=== PATIENT | female | born 1955 | race Caucasian/White ===

== ENCOUNTER → 2016-09-07 | Outpatient (CLI) | payer BC, OTHER ==
[~2016-09-07] MED LIST: CLEM2.68 PO; CTP/1 PO; FURO-85 PO; IMDSR/30 PO; LEVO5TAB2 PO; LPT40 PO; LSN5 PO; NTRGSL/4 UT; OMEP40CA41 PO; POTA-327 PO; SPR25 PO; TOLT4CAP PO
[2016-09-07 15:52] LABS: BLOOD UREA NITROGEN 16 mg/dl (7-18); BUN/CREATININE RATIO 21.6 (10-20); CALCIUM 9.2 mg/dl (8.5-10.1); CARBON DIOXIDE 24 mmol/L (21-32); CHLORIDE 108 mmol/L (98-107); CREATININE 0.73 mg/dl (0.60-1.20); GLUCOSE 112 mg/dl (70-99); SODIUM 141 mmol/L (136-145)
[2016-09-07 16:02] LABS: ALT/SGPT 28 U/L (12-78); CHOLESTEROL 212 mg/dl (0-200); CHOLESTEROL/HDL RATIO 6.4; HDL CHOLESTEROL 33 mg/dl; TRIGLYCERIDES 302 mg/dl (0-150); VERY LOW DENSITY LIPOPROT CALC 60 mg/dl
== END | disposition home or self-care (01) ==
LOC: C.LABMFLN 11:52
PROVIDERS: ATTEND Family Medicine
DX: I10 Essential (primary) hypertension (principal); E78.00 Pure hypercholesterolemia, unspecified

== ENCOUNTER → 2017-02-14 | Outpatient (CLI) | payer OTHER ==
[~2017-02-14] MED LIST changes: +LEVO-371 PO; -LEVO5TAB2 PO
[2017-02-14 13:13] LABS: ALB/GLOB RATIO 0.8 (0.9-2); ALT/SGPT 29 U/L (12-78); AST/SGOT 15 U/L (15-37); BLOOD UREA NITROGEN 15 mg/dl (7-18); BUN/CREATININE RATIO 17.5 (10-20); CALCIUM 9.1 mg/dl (8.5-10.1); CARBON DIOXIDE 24 mmol/L (21-32); CHLORIDE 108 mmol/L (98-107); CREATININE 0.87 mg/dl (0.60-1.20); GLUCOSE 104 mg/dl (70-99); POTASSIUM 4.1 mmol/L (3.5-5.1); SODIUM 140 mmol/L (136-145)
[2017-02-14 13:31] LABS: ALKALINE PHOSPHATASE 76 U/L (45-117); CHOLESTEROL 208 mg/dl (0-200); CHOLESTEROL/HDL RATIO 6.3; HDL CHOLESTEROL 33 mg/dl; LDL CHOLESTEROL CALCULATED 131 mg/dl; TRIGLYCERIDES 221 mg/dl (0-150); VERY LOW DENSITY LIPOPROT CALC 44 mg/dl
== END | disposition home or self-care (01) ==
LOC: C.LABPVFM 10:50
PROVIDERS: ATTEND Neuromusculoskeletal Medicine & OMM
DX: Z00.00 Encounter for general adult medical examination without abnormal findings (principal)

== ENCOUNTER → 2017-03-10 | Outpatient (CLI) | payer OTHER ==
--- NOTE | 2017-03-10 12:23 | DIAGNOSTIC IMAGING REPORT ---
LEFT KNEE 2 VIEWS HISTORY: M25.562 Pain of left knee after injury [id number] COMPARISON: None. FINDINGS: There is no fracture or dislocation. Anterior subcutaneous edema. No significant knee effusion. No radiopaque foreign bodies. Mild cartilage space narrowing within the medial compartment of the knee consistent with degenerative change. IMPRESSION: 1. No fracture or dislocation within the left knee. 2. Mild osteoarthritis at the medial compartment. 3. Mild subcutaneous edema. Electronically signed by: Cesar Acevedo M.D. 03/10/2017 12:22 PM Dictated Date/Time: 03/10/2017 12:21 PM
== END | disposition home or self-care (01) ==
LOC: C.RAD 11:31
PROVIDERS: ATTEND Neuromusculoskeletal Medicine & OMM
DX: M25.562 Pain in left knee (principal)

== ENCOUNTER 2020-01-10 05:03 | Observation (INO) ==
--- NOTE | 2020-01-01 10:43 | PAT Medication Instructions ---
Medication Instructions Date of Service January 01, 2020 Home Medications Medication Instructions Recorded clemastine 2.68 mg tablet 2.68 mg PO BID PRN #180 tab 10/24/19 clonidine HCl 0.1 mg tablet 0.1 mg PO BID #180 tab 10/24/19 fluticasone propionate 50 2 sprays INTNAS DAILY PRN #54.6 ml 10/24/19 mcg/actuation nasal spray,suspension valsartan 40 mg tablet 40 mg PO BID #60 tab 11/26/19 varicella-zoster [id number] (PF) 50 0.5 ml IM .COMPLEX #1 ea 11/26/19 mcg/0.5 mL IM susp, kit aspirin 81 mg tablet,delayed release 81 mg PO QAM clemastine 2.68 mg tablet 2.68 mg PO BID PRN clonidine HCl 0.1 mg tablet 0.1 mg PO BID fluticasone propionate 50 mcg/actuation nasal spray,suspension 2 sprays INTNAS DAILY PRN valsartan 40 mg tablet 40 mg PO BID acetaminophen [Tylenol] 325 mg PO Q4H PRN fenofibrate nanocrystallized 145 mg PO QAM furosemide 20 mg PO QAM ibuprofen [Advil] 400 mg PO Q4 PRN metformin 500 mg PO QAM omeprazole 40 mg PO QAM potassium chloride 10 meq PO QAM tolterodine 4 mg PO QAM ASK your surgeon for instructions ibuprofen [Advil] 400 mg PO Q4 PRN ASK your prescriber and surgeon aspirin 81 mg tablet,delayed release 81 mg PO QAM STOP taking 48 hours before surgery fenofibrate nanocrystallized 145 mg PO QAM DO NOT take the morning of surgery clemastine 2.68 mg tablet 2.68 mg PO BID PRN valsartan 40 mg tablet 40 mg PO BID furosemide 20 mg PO QAM metformin 500 mg PO QAM potassium chloride 10 meq PO QAM tolterodine 4 mg PO QAM Take morning of surgery With a small sip of water, OTHERWISE NOTHING TO EAT OR DRINK AFTER MIDNIGHT: clonidine HCl 0.1 mg tablet 0.1 mg PO BID fluticasone propionate 50 mcg/actuation nasal spray,suspension 2 sprays INTNAS DAILY PRN (if needed) acetaminophen [Tylenol] 325 mg PO Q4H PRN (okay to take up to 4 hours prior to surgery if needed) omeprazole 40 mg PO QAM Take evening before surgery clemastine 2.68 mg tablet 2.68 mg PO BID PRN (if needed) clonidine HCl 0.1 mg tablet 0.1 mg PO BID fluticasone propionate 50 mcg/actuation nasal spray,suspension 2 sprays INTNAS DAILY PRN (if needed) valsartan 40 mg tablet 40 mg PO BID acetaminophen [Tylenol] 325 mg PO Q4H PRN (if needed) Other Notes If you have any questions please call us at [phone] or [phone] or [phone] or [phone]
--- NOTE | 2020-01-02 14:27 | Anesthesiology Consultation ---
Date of Service January 02, 2020 Assessment & Plan (1) Encounter for pre-operative examination: - Cardiology preop evaluation: Hx moderate CAD per 2015 cardiac cath + morbid obesity, NIDDM, decreased functional status. Case reviewed with Dr. Mahmood- deneen commend cardiology preop evaluation- scheduled 01/08 at [facility] cardio. Awaiting note. - Per PAT assessment on 01/01: Travel screen negative. Uses PPE. No known COVID- 19 positive contacts. No current COVID-19 related symptoms. Surgeon arranging preop COVID testing (01/03; [facility]). Awaiting results. - PCP office visit: 11/26/19: Valsartan added for HTN management. "Type 2 diabete s: Adequately controlled this time.. GERD: Well controlled. " - Check [facility] AM DOS Chart Review Chart Review: Patient seen in Pre Admission Testing Teaching & Discussion Pre-Anesthesia Teaching/Discussion Notes: Instructed NPO after midnight before surgery,except medications with 15 cc of water. Medication instructions provided according to the PAT guidelines. History Surgery Operation Date: 01/10/20 07:30 Proposed Procedures p Right Shoulder Arthroscopy, Rotator Cuff Repair, Possible Superior Capsular Reconstruction, Subacromial Decompression, Biceps Tenodesis - Arnoldo Manuel Height/Weight Height: 5 ft 6 in Weight: 126.5 kg Allergies Allergy/AdvReac Type Severity Reaction Status Date / Time prednisone Allergy Unknown Elevated BP Unverified 01/01/20 10:40 Sulfa (Sulfonamide Allergy Unknown Hives Unverified 01/01/20 10:40 Antibiotics) cortisone Allergy Unverified 01/01/20 09:52 Medications Home Medications Medication Instructions Recorded Confirmed Last Taken aspirin 81 mg tablet,delayed 81 mg PO QAM 11/17/18 01/01/20 Unknown release clemastine 2.68 mg tablet 2.68 mg PO BID PRN #180 tab 10/24/19 01/01/20 Unknown clonidine HCl 0.1 mg tablet 0.1 mg PO BID #180 tab 10/24/19 01/01/20 Unknown fluticasone propionate 50 2 sprays INTNAS DAILY PRN #54.6 ml 10/24/19 01/01/20 Unknown mcg/actuation nasal spray,suspension valsartan 40 mg tablet 40 mg PO BID #60 tab 11/26/19 01/01/20 Unknown varicella-zoster glycoE [id number] 0.5 ml IM .COMPLEX #1 ea 11/26/19 12/31/19 Unknown adj(PF) 50 mcg/0.5 mL IM susp dary acetaminophen [Tylenol] 325 mg PO Q4H PRN 01/01/20 01/01/20 Unknown fenofibrate nanocrystallized 145 mg PO QAM 01/01/20 01/01/20 Unknown furosemide 20 mg PO QAM 01/01/20 01/01/20 Unknown ibuprofen [Advil] 400 mg PO Q4 PRN 01/01/20 01/01/20 Unknown metformin 500 mg PO QAM 01/01/20 01/01/20 Unknown omeprazole 40 mg PO QAM 01/01/20 01/01/20 Unknown potassium chloride 10 meq PO QAM 01/01/20 01/01/20 Unknown tolterodine 4 mg PO QAM 01/01/20 01/01/20 Unknown Past Medical History Medical History CAD (coronary artery disease) moderate CAD per 2015 cardiac cath Carpal tunnel syndrome Gastroesophageal reflux disease controlled History of Lyme disease 2014 Hypercholesterolemia Hypertension Hypertension 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" Morbid obesity Stroke "stress induced" at age 39 Type 2 diabetes mellitus NIDDM Exercise / Class Metabolic Activity III < 4 Walking/Shop/Light housework Past Family History Family History Father Hypertension Myocardial infarction Lung cancer Sister Multiple sclerosis Mother Ovarian cancer Denies family history of Prostate cancer Breast cancer Colorectal cancer Past Surgical History Surgical History History of cardiac cath 2014 ([facility])- no stents History of colonoscopy 2019 History of dental surgery tooth replacement but since rejected and removed History of tubal ligation Past Anesthesia History No Hx of Anesthesia Complications and No Family Hx of Anesthesia Complications History of PONV No Hx of PONV and Hx of Motion Sickness Social History Smoking Status: Never smoker Do You Dip or Chew Tobacco: No Hx Alcohol Use: No Hx Substance Use: No substance use type: does not use Review of Systems Reflux controlled. Patient denies chest pain, shortness of breath, fever, chills, reflux, cough, wheezing, palpitations. Physical Exam Vital Signs VITALS BP 145/77 P 50 TEMP 98.2 SP02 98%RA RESP 18 PHYSICAL Full neck and c-spine range of motion. Full TMJ range of motion. TMD 3 finger breaths (difficult to palpate) Mallampati Score 3 Dentition: upper partial Lungs: clear throughout to auscultation Cardiac: regular rate and rhythm, no murmurs noted Spine: normal Carotid arteries: negative bruit Extremities: non-pitting edema Short, thick neck Testing Laboratory Results 01/02/20 14:50 PT 10.5 Seconds (9.0-12.0) 01/02/20 14:50 INR 1.0 (0.9-1.1) 01/02/20 14:50 APTT 26.6 Seconds (21.0-31.0) 01/02/20 14:50 11/22/19 SODIUM 139 POTASSIUM 3.9 CHLORIDE 108 CO2 24 BUN 20 CREATININE 0.94 GLUCOSE 129 HGBA1C 6.5% Electrocardiogram Date: 01/02/20 SB with first degree AVB with PAC's. Rightward axis. ST/TWA consider lateral ischemia. unconfirmed report* Chest X-Ray Date: 01/02/20 Findings: + NAD Echocardiogram Date: 02/07/15 EF 65-70%. No RWMA. Mild cLVH. No significant valvular disease. Cardiac Catheterization Date: 02/07/15 Coronary Anatomy Dominant: Right Left Main (% Stenosis): Normal LAD (% Stenosis): Mid (30), Distal (10-20) D1 (% Stenosis): Normal (Very small caliber vessel) D2 (% Stenosis): Ostial (50-60) Circumflex (% Stenosis): Ostial (10-20), Mid (30) OM1 (% Stenosis): Ostial (30) RCA (% Stenosis): Ostial (20), Proximal (20), Mid (10-20), Distal (10-20) R PDA (% Stenosis): Proximal (0-10) R PL1 (% Stenosis): Normal R PL2 (% Stenosis): Normal Left Ventricular Angiography EF (%): 65 Wall Motion: Inferior (Normal), Apical (Normal), Anterior (Normal) Mitral Regurgitation: None Post-procedure diagnosis: Moderate CAD-- medical therapy rec'd.
[2020-01-02 15:27] LABS: Basophils # (auto) 0.02 K/uL (0-0.2); Basophils % (auto) 0.3 %; Eosinophils # (auto) 0.17 K/uL (0-0.5); Eosinophils % (auto) 2.6 %; Hematocrit (blood only) 41.8 % (37-47); Hemoglobin 13.7 g/dL (12.0-16.0); Immature Granulocytes # (auto) 0.02 K/uL (0.00-0.02); Immature Granulocytes % (auto) 0.3 %; Lymphocytes # (auto) 2.16 K/uL (1.2-3.4); Lymphocytes % (auto) 33.3 %; Mean Corpuscular Hemoglobin 29.1 pg (25-34); Mean Corpuscular Hgb Conc 32.8 g/dL (32-36); Mean Corpuscular Volume 88.7 fL (80-100); Mean Platelet Volume 10.2 fL (7.4-10.4); Monocytes % (auto) 4.6 %; Neutrophils # (auto) 3.81 K/uL (1.4-6.5); Neutrophils % (auto) 58.9 %; Platelet Count 235 K/uL (130-400); RDW Coefficient of Variation 13.3 % (11.5-14.5); RDW Standard Deviation 43.7 fL (36.4-46.3); Red Blood Count 4.71 M/uL (4.2-5.4); White Blood Count 6.48 K/uL (4.8-10.8)
--- NOTE | 2020-01-02 15:30 | XRay Report ---
XR chest Pre-admission PA/Lat CLINICAL HISTORY: pat COMPARISON STUDY: 02/06/2015 FINDINGS: The bones soft tissues and hemidiaphragms are normal. The cardiomediastinal silhouette is n ormal. The lungs are clear. The pulmonary vasculature is normal. IMPRESSION: Negative chest. ACT 112: Negative or not required by law. The above report was generated using voice recognition software. It may contain grammatical, syntax or spelling errors. Electronically signed by: Melchor Niño M.D. 01/02/2020 3:29 PM
[2020-01-02 15:48] LABS: Partial Thromboplastin Time 26.6 Seconds (21.0-31.0); Prothrombin Time 10.5 Seconds (9.0-12.0)
--- NOTE | 2020-01-03 06:35 | Electrocardiogram Report ---
Test Reason : Blood Pressure : / mmHG Vent. Rate : 046 BPM Atrial Rate : 046 BPM P-R Int : 250 ms QRS Dur : 090 ms QT Int : 500 ms P-R-T Axes : 069 090 161 degrees QTc Int : 437 ms Sinus bradycardia with 1st degree A-V block with Premature atrial complexes Rightward axis Abnormal ECG When compared with ECG of 09-FEB-2015 07:07, Premature atrial complexes are now Present Criteria for Septal infarct are no longer Present T wave inversion no longer evident in Inferior leads Confirmed by Delfin Armendariz ([id number]) on 01/03/2020 6:34:42 AM Referred By: Arnoldo Manuel Confirmed By:Delfin Armendariz
[2020-01-10] MEDS ORDERED: CEFAZOLIN 3000MG 72.5 ML IV SCH (06:00)
[2020-01-10] MEDS ORDERED: LR 15ML/HR IV SCH (06:00)
[2020-01-10] MEDS ORDERED: LR 60ML/HR IV SCH (06:00)
[2020-01-10] MEDS ORDERED: BUPIVACAINE 0.5 % 5 MG/1 ML PF 10ML VIAL ONE (06:30)
[2020-01-10] MEDS ORDERED: CISATRACURIUM BESYLATE IV SOLN 2 MG/ML 10 ML VIAL IV ONE (06:40)
[2020-01-10] MEDS ORDERED: SUCCINYLCHOLINE CHLORIDE 20 MG/ML 10 ML VIAL IV ONE (06:40)
[2020-01-10] MEDS ORDERED: MIDAZOLAM HCL 1 MG/ML 2ML VIAL ONE (06:40)
[2020-01-10] MEDS ORDERED: ONDANSETRON INJ 2 MG/ML 2 ML VIAL ONE (06:40)
[2020-01-10] MEDS ORDERED: fentaNYL citrate 100 MCG/2 ML VIAL ONE (06:40)
[2020-01-10] MEDS ORDERED: PROPOFOL IV EMULSION 10 MG/ML 20 ML VIAL IV ONE (06:40)
[2020-01-10] MEDS ORDERED: LIDOCAINE HCL 2% 2 ML VIAL/AMP(20MG/ML) INFIL ONE (06:40)
--- NOTE | 2020-01-10 06:48 | History & Physical Bridge Note ---
Date of Service January 10, 2020 History & Physical Bridge Note I have examined the patient, reviewed the History & Physical and in the interval since the performance of the History & Physical I have noted the following changes of clinical significance: no changes noted Patient is aware of COVID-19 risks. Patient is asymptomatic of any COVID-19 symptoms. Patient has been tested for COVID-19 - pending right now.
[2020-01-10] MEDS ORDERED: EpINEphrine HCL INJ 1 MG/ML 1ML SYRINGE ONE (07:00)
[2020-01-10] MEDS ORDERED: FLUMAZENIL 0.1 MG/1 ML 10 ML VIAL IV PRN (07:53)
[2020-01-10] MEDS ORDERED: fentaNYL citrate 100 MCG/2 ML VIAL IV PRN (07:53)
[2020-01-10] MEDS ORDERED: NALOXONE HCL 0.4 MG/1 ML VIAL/CARP IV PRN (07:53)
[2020-01-10] MEDS ORDERED: ONDANSETRON INJ 2 MG/ML 2 ML VIAL IV PRN ×2 (07:53→09:41)
[2020-01-10] MEDS ORDERED: PROMETHAZINE HCL 12.5 MG in SODIUM CHLORIDE 0.9% 50 ML IV PRN (07:53)
[2020-01-10] MEDS ORDERED: HYDROmorphone INJ 1 MG/ML SYRINGE IV PRN (07:53)
[2020-01-10] MEDS ORDERED: LABETALOL HCL IV 5 MG/ML 20ML IV PRN (07:53)
[2020-01-10] MEDS ORDERED: ATROPINE SULFATE 0.1 MG/ML 10ML SYR IV PRN (07:53)
[2020-01-10] MEDS ORDERED: ePHEDrine sulfate 50 MG/ML AMP IV PRN (07:53)
--- NOTE | 2020-01-10 08:07 | Communication Note ---
Date of Service: January 10, 2020 Patient surgery cancelled secondary to severely uncontrolled HTN. BP w/ left radial arterial line consistently around 253/128 w/ mean BP 181. BP cuff measurements were consistent w/ art. line at 265/143 w/ mean BP 211. Case is cancelled. Dr Rigoberto Johnson ( [facility] hospitalist) was consulted and pt discussed w/ him. Pt to go to PACU where Dr Johnson will see her and admit her.
[2020-01-10] MEDS ORDERED: VALSARTAN 80 MG TAB PO STA (08:53)
--- NOTE | 2020-01-10 08:55 | Anesthesiology Progress Note ---
Date of Service January 10, 2020 Anesthesia Post Procedure Vital Signs Vital Signs: Temp Pulse Pulse Resp BP BP Pulse Ox 01/10/20 08:45 60 18 215/142 H 220/106 H 97 01/10/20 08:35 68 18 175/69 H 172/91 H 99 01/10/20 08:25 65 18 188/89 H 186/115 H 99 01/10/20 08:18 36.8 C 60 20 179/100 H 98 01/10/20 05:35 37.3 C 63 20 217/133 H 97 Pain Intensity Right Shoulder: Pain Intensity: 6 Transfer of Care Handoff Completed per policy Notes Mental Status: alert / awake / arousable Patient Amnestic to Procedure: No Nausea / Vomiting: adequately controlled Pain: adequately controlled Airway Patency, RR, SpO2: stable & adequate BP & HR: see Notes below Hydration State: stable & adequate Anesthetic Complications: see Notes below and Pt Satisfied with anesthetic care Notes: Pt case cancelled secondary to severe uncontrolled HTN.Pt was not anesthetized.Pt transferred to PACU. Pt BP txed w/ hydralazine 10 mg, w/c brought BP down to 180/110. Pt being seen and admitted by Dr Rigoberto Johnson.
--- NOTE | 2020-01-10 09:18 | History & Physical Report ---
Date of Service January 10, 2020 Assessment & Plan (1) Hypertensive urgency: SBP 250-260 on arterial line in the OR prior to surgery some dyspnea when laying down, no headache, no chest pain/pressure she took her Clonidine 0.1mg this morning, no other medications responded to Hydralazine 10mg IV given in the PACU plan: give Valsartan 40mg and Lasix 20mg that she takes at home admit to PCU, can discontinue the arterial line use Hydralazine 10mg IV q6 PRN for SBP > 190 or DBP > 120 continue on her Clonidine 0.1mg BID, increase Valsartan to 80mg BID, Lasix 20mg daily follow BP closely EKG with sinus with 1st degree AV block, some ST and TW changes in lateral leads troponin 0.19 and repeat 6 hours later 0.19 CXR with no acute process still with dyspnea, lungs clear cannot lay flat to get a CTA to r/o PE, will place on therapeutic lovenox and try for CTA tomorrow if she is better will try Ativan 0.5mg PO x 1 to see if she has anxiety (2) Dyspnea: patient says she just does not feel right breathing lungs clear, no wheezing, no hypoxia, placed on some oxygen no tachycardia and no real risk factors for PE, she has been active right up until surgery, no calf tenderness or swelling will try some Ativan 0.5mg PO to see if it is anxiety related start on therapeutic Lovenox for tonight, she refuses to lay flat, says she can only last a few seconds try to get CTA chest tomorrow (3) CAD (coronary artery disease): h/o cath in 2014, moderate disease, no stents continue aspirin some lateral ST and TW changes, check echo tomorrow troponin 0.19 on two draws, repeat in the morning consider cardiology consult, but she was just seen in the office (4) Dysfunction of right rotator cuff: surgery on hold until HTN is better and dyspnea resolved (5) Type 2 diabetes mellitus: diabetic diet hold oral agents, use Novolog SS with correction factor only (6) Gastroesophageal reflux disease: Protonix (7) Hypercholesterolemia: (8) Asthma: History of Present Illness Chief Complaint: I feel a little tight when I try to breathe Primary Care Provider: Gonzalo Torres, DO 64 yo female who presented today for right shoulder arthroplasty, was found to have systolic pressures in the range of 250-260 based on arterial line findings. She said that she felt fine this morning prior to surgery. She only took her Clonidine 0.1mg this morning, did not take her Valsartan 40mg or her Lasix 20mg. She does not have any chest pain but she did admit to feeling short of breath when they laid her flat on the table. She says she typically is very active, always on the move, going to [employer] markets and stores, buying antiques. She never gets chest pain or pressure with activity. She does not get very short of breath with activity either. She has a history of CVA at the age of 39 that she says was due to stress, she says her father was dying from cancer at that time. She has a history of heart catheterization in 2014, no stents required. She says that she has been waiting to get the right shoulder fixed since October 2019. She has been eating and drinking well prior to this surgery, no recent issues with moving her bowels or making urine. She received Hydralazine IV and BP improved from 250-260 range to 180-200 systolic. Surgery cancelled, asked to admit the patient and get better blood pressure control before surgery is considered again. Allergies Allergy/AdvReac Type Severity Reaction Status Date / Time prednisone Allergy Unknown Elevated BP Verified 01/10/20 05:26 Sulfa (Sulfonamide Allergy Unknown Hives Verified 01/10/20 05:26 Antibiotics) cortisone Allergy Verified 01/10/20 05:26 Home Medications Home Medications Medication Instructions Recorded Confirmed Type aspirin 81 mg tablet,delayed 81 mg PO QAM 11/17/18 01/10/20 History release clemastine 2.68 mg tablet 2.68 mg PO BID PRN #180 tab 10/24/19 01/10/20 Rx clonidine HCl 0.1 mg tablet 0.1 mg PO BID #180 tab 10/24/19 01/10/20 Rx fluticasone propionate 50 2 sprays INTNAS DAILY PRN #54.6 ml 10/24/19 01/10/20 Rx mcg/actuation nasal spray,suspension valsartan 40 mg tablet 40 mg PO BID #60 tab 11/26/19 01/10/20 Rx varicella-zoster glycoE [id number] 0.5 ml IM .COMPLEX #1 ea 11/26/19 01/10/20 Rx adj(PF) 50 mcg/0.5 mL IM susp, kit acetaminophen [Tylenol] 325 mg PO Q4H PRN 01/01/20 01/10/20 History fenofibrate nanocrystallized 145 mg PO QAM 01/01/20 01/10/20 History furosemide 20 mg PO QAM 01/01/20 01/10/20 History ibuprofen [Advil] 400 mg PO Q4 PRN 01/01/20 01/10/20 History metformin 500 mg PO QAM 01/01/20 01/10/20 History omeprazole 40 mg PO QAM 01/01/20 01/10/20 History potassium chloride 10 meq PO QAM 01/01/20 01/10/20 History tolterodine 4 mg PO QAM 01/01/20 01/10/20 History Past Med/Surg History Medical History CAD (coronary artery disease) moderate CAD per 2015 cardiac cath Carpal tunnel syndrome Gastroesophageal reflux disease controlled History of Lyme disease 2014 Hypercholesterolemia Hypertension Hypertension 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" Morbid obesity Stroke "stress induced" at age 39 Type 2 diabetes mellitus NIDDM Surgical History History of cardiac cath 2014 ([facility] no stents History of colonoscopy 2018 History of dental surgery tooth replacement but since rejected and removed History of tubal ligation Family History Father Hypertension Myocardial infarction Lung cancer Sister Multiple sclerosis Mother Ovarian cancer Denies family history of Prostate cancer Breast cancer Colorectal cancer Social History Smoking Status: Never smoker Second Hand Exposure: No; Do You Dip or Chew Tobacco: No; Hx Alcohol Use: No Hx Substance Use: No Preferred Language: Marshallese Communication Ability: Effective Visual Impairment: No Limitations Hearing Ability: Normal Beliefs That Will Affect Care: None marital status: Current Living Situation: Spouse Current Living Situation Comment: Joaquin current occupational status: retired Feels Safe at Home: Yes Safety Concerns: Feels Safe At This Time Childhood Exposure to Second-Hand Smoke: Yes Dental Care, Regularly: No Physical Activity Frequency: Does not Exercise Seatbelt Use: always Sunscreen Use: Yes Review of Systems Review of Systems: All systems reviewed & are unremarkable except as noted in Subjective Constitutional: no fever, no sweats, no fatigue and no weakness Respiratory: + dyspnea; no cough, no dyspnea on exertion and no hemoptysis Cardiovascular: + edema (right leg, recently rolled her ankle); no chest pain and no syncope Gastrointestinal: no abdominal pain, no nausea, no vomiting, no constipation and no diarrhea/loose stools Musculoskeletal: + joint pain (right shoulder, right ankle); no back pain Physical Exam Constitutional: well developed and + morbidly obese; no acute distress Eyes: PERRL, conjunctivae normal, anicteric sclerae ENMT: external ear and nose normal, oropharynx normal Neck: trachea midline, no thyromegaly Respiratory: normal respiratory effort, lungs clear to auscultation Cardiovascular: RRR, no murmur, no edema Gastrointestinal (Abdomen): normal bowel sounds, soft, nontender, no hepatosplenomegaly Musculoskeletal: Head/Neck/Chest: normocephalic, head atraumatic and neck supple Extremities: extremities normal to inspection and strength 5/5 throughout; no cyanosis, no clubbing and no petechiae Shoulder: + limited ROM (right, due to pain) Ankle: + ankle abnormal to inspection (right ankle swollen, tender) Skin: no rashes, warm and dry Neurologic: patellar DTR's 2+ bilat, sensation intact and PERRL, EOMI, accommodation nl, no face palsy, no dysarthria Psychiatric: A+Ox3, euthymic affect Lymphatic: no cervical or axillary lymphadenopathy Results & Data Results & Data ([facility]) Vital Signs (Past 12 Hours) Vital Signs Temp Pulse Pulse Resp BP BP Pulse Ox 01/10/20 08:55 60 18 217/88 H 217/115 H 97 01/10/20 08:45 60 18 215/142 H 220/106 H 97 01/10/20 08:35 68 18 175/69 H 172/91 H 99 01/10/20 08:25 65 18 188/89 H 186/115 H 99 01/10/20 08:18 36.8 C 60 20 179/100 H 98 01/10/20 05:35 37.3 C 63 20 217/133 H 97 Laboratory Results Laboratory Results - last 24 hr 01/10/20 01/10/20 01/10/20 05:28 07:08 07:08 Sodium Potassium Chloride Carbon Dioxide Anion Gap BUN Creatinine Est Cr Clr Drug Dosing Est GFR ( Amer) Est GFR (Non-Af Amer) BUN/Creatinine Ratio Glucose POC Glucose 134 H Calcium Troponin I COVID-19 Eval Order Covid19 IDNow [facility] SARS-CoV-2, RNA, NAAT NEGATIVE 01/10/20 01/10/20 01/10/20 10:00 10:06 11:01 Sodium 138 Potassium 3.9 Chloride 107 Carbon Dioxide 22 Anion Gap 8.0 BUN 14 Creatinine 0.71 Est Cr Clr Drug Dosing 108.5 Est GFR ( Amer) 104.3 Est GFR (Non-Af Amer) 90.0 BUN/Creatinine Ratio 20.1 H Glucose 116 H POC Glucose 120 H 129 H Calcium 9.2 Troponin I 0.172 H* COVID-19 Eval Order SARS-CoV-2, RNA, NAAT 01/10/20 01/10/20 01/10/20 16:01 16:04 19:51 Sodium Potassium Chloride Carbon Dioxide Anion Gap BUN Creatinine Est Cr Clr Drug Dosing Est GFR ( Amer) Est GFR (Non-Af Amer) BUN/Creatinine Ratio Glucose POC Glucose 110 H 140 H Calcium Troponin I 0.176 H* COVID-19 Eval Order SARS-CoV-2, RNA, NAAT Diagnostic Findings XR chest 1V portable HISTORY: 64 years-old Female Dyspnea, right brachial plexus block this morning acute shortness of breath COMPARISON: Chest radiograph 01/02/2020 TECHNIQUE: Portable AP view of the chest FINDINGS: Cardiac silhouette is enlarged, unchanged. Medial lung apices are partially obscured by the patient's chin. No pneumothorax, pleural effusion, airspace consolidation or overt pulmonary edema. Mild chronic interstitial coarsening of the lung bases. Degenerative changes of the shoulders and spine. IMPRESSION: No acute process. Medications Administered Current Inpatient Medications Acetaminophen (Acetaminophen 325 Mg Tab) 650 mg PO Q4H PRN PRN Reason: Pain or Fever Stop: 02/09/20 09:40 Last Admin: 01/10/20 19:48 Dose: 650 mg Documented by: Clonidine HCl (Clonidine Hcl 0.1 Mg Tab) 0.1 mg PO BID TAMARA Stop: 02/09/20 20:59 Last Admin: 01/10/20 19:47 Dose: 0.1 mg Documented by: Dextrose (Dextrose 50% 50 Ml Syringe) 25 - 50 ml IV UD PRN; Protocol PRN Reason: Hypoglycemia Protocol Stop: 02/09/20 10:29 Enoxaparin Sodium (Enoxaparin 150 Mg/Ml Syr) 129 mg SQ Q12H [facility] Stop: 02/09/20 17:59 Last Admin: 01/10/20 18:28 Dose: 129 mg Documented by: Fenofibrate (Fenofibrate Nanocrystallized 145 Mg Tablet) 145 mg PO [facility] Stop: 02/09/20 09:40 Last Admin: 01/10/20 10:51 Dose: 145 mg Documented by: Furosemide (Furosemide 20 Mg Tab) 20 mg PO [facility] Stop: 02/09/20 09:40 Last Admin: 01/10/20 10:51 Dose: 20 mg Documented by: Glucagon (Glucagon For Inj 1 Mg Vial) 1 mg IM UD PRN; Protocol PRN Reason: Hypoglycemia Protocol Stop: 02/09/20 10:29 Glucose (Glucose 40% Gel 15 Gm Tube) 15 - 30 gm PO UD PRN; Protocol PRN Reason: Hypoglycemia Protocol Stop: 02/09/20 10:29 Glucose (Glucose 10 Tabs/Tube) 4 - 8 tabs PO UD PRN; Protocol PRN Reason: Hypoglycemia Protocol Stop: 02/09/20 10:29 Hydralazine HCl (Hydralazine Hcl 20 Mg/Ml Vial) 10 mg IV Q6 PRN PRN Reason: Blood Pressure - High Stop: 02/09/20 09:40 Last Admin: 01/10/20 12:31 Dose: 10 mg Documented by: Insulin Aspart (Insulin Aspart 100 Units/Ml 3 Ml Pen) 0 units [facility]; Protocol Stop: 02/09/20 11:29 Last Admin: 01/10/20 16:01 Dose: Not Given Documented by: Miscellaneous (Carbohydrates For Hypoglycemia ) 15 - 30 gm PO UD PRN PRN Reason: Hypoglycemia Treatment Stop: 02/09/20 10:29 Ondansetron HCl (Ondansetron Inj 2 Mg/Ml 2 Ml Vial) 4 mg IV Q6H PRN PRN Reason: Nausea Stop: 02/09/20 09:40 Pantoprazole Sodium (Pantoprazole 40 Mg Tab) 40 mg PO [facility]; Protocol Stop: 02/10/20 08:59 Potassium Chloride (Potassium Chloride 10 Meq Tabcr) 10 meq PO QAM [facility] Stop: 02/09/20 09:40 Last Admin: 01/10/20 10:50 Dose: 10 meq Documented by: Tolterodine Tartrate (Tolterodine Tartrate La 4 Mg Capcr) 4 mg PO QAM [facility] Stop: 02/09/20 09:40 Last Admin: 01/10/20 10:50 Dose: 4 mg Documented by: Valsartan (Valsartan 80 Mg Tab) 80 mg PO BID [facility] Stop: 02/09/20 20:59 Last Admin: 01/10/20 19:48 Dose: 80 mg Documented by: PG Care Time/CCT Total # of Minutes Spent Total Time Spent with Patient: Total time spent is greater than 50% in coordination of care (as documented) at patient's floor/unit and/or counseling patient: Coding Level of Care Code 03870 Initial Inpt Care Lvl 3 Diagnoses Hypertensive urgency I16.0 Dyspnea R06.00 CAD (coronary artery disease) I25.10 Dysfunction of right rotator cuff M67.911 Type 2 diabetes mellitus E11.9 Gastroesophageal reflux disease K21.9 Hypercholesterolemia E78.00 Asthma J45.909
--- NOTE | 2020-01-10 09:29 | Orthopedic Consultation ---
Date of Consultation January 10, 2020 Assessment & Plan (1) Hypertensive urgency: Given hypertensive urgency demonstrated on arterial line in the operating room, she was admitted to the hospitalist service. We appreciate their support and care of this patient. The surgery will be postponed indefinitely, until appropriate outpatient blood pressure management can be achieved. Present on Admission?: Yes (2) Dysfunction of right rotator cuff: She has a full-thickness rotator cuff tear with significant rotator cuff dysfunction. The motor and sensory blockade should last up to 72 hours due to the liposomal bupivacaine that was used with her peripheral nerve block performed by anesthesia. She should remain in a sling for comfort until she restore some better motor and sensory control of that extremity. I will continue to follow peripherally and remain available for any questions. Present on Admission?: Yes History of Present Illness Attending Physician: Arnoldo Manuel History of Present Illness 64-year-old female who presented to see me for an acute rotator cuff tear in the setting of chronic rotator cuff tendinopathy. She had multiple medical problems that seemed to be well managed. She been cleared by her mobile marketing specialist for surgery today. On arrival to the preoperative area, she reported no changes to her medical history and she felt well. She did admit to some anxiety with regard to the upcoming surgery and was anxious to get it underway. She denied any shortness of breath at that time. Upon evaluation in the preoperative holding area, she did had elevated blood pressure above 200 systolic. It was attributed to some anxiety, and we proceeded with a peripheral nerve block under sedation. She tolerated this well. Due to her labile blood pressure, an arterial line was started by the anesthesia team. On arrival to the operating room, she presented with more anxiety and did explain some shortness of breath. Oxygen had been ongoing. The peripheral nerve block was taking effect. Upon initiation of sedation medications, her blood pressure elevated further to the 260s systolically. Due to these elevated blood pressures, anesthesia recommended canceling the case. She was taken to the postanesthesia care unit for monitoring. We have asked the hospitalist team and likely cardiology to evaluate her for any new hypertension related events. In the PACU, she reported that she was feeling more comfortable but remains somewhat short of breath. She admitted that she is feeling the effects of some of the medications. Allergies Allergy/AdvReac Type Severity Reaction Status Date / Time prednisone Allergy Unknown Elevated BP Verified 01/10/20 05:26 Sulfa (Sulfonamide Allergy Unknown Hives Verified 01/10/20 05:26 Antibiotics) cortisone Allergy Verified 01/10/20 05:26 Home Medications Home Medications Medication Instructions Recorded Confirmed Type aspirin 81 mg tablet,delayed 81 mg PO QAM 11/17/18 01/10/20 History release clemastine 2.68 mg tablet 2.68 mg PO BID PRN #180 tab 10/24/19 01/10/20 Rx clonidine HCl 0.1 mg tablet 0.1 mg PO BID #180 tab 10/24/19 01/10/20 Rx fluticasone propionate 50 2 sprays INTNAS DAILY PRN #54.6 ml 10/24/19 01/10/20 Rx mcg/actuation nasal spray,suspension valsartan 40 mg tablet 40 mg PO BID #60 tab 11/26/19 01/10/20 Rx varicella-zoster glycoE [id number] 0.5 ml IM .COMPLEX #1 ea 11/26/19 01/10/20 Rx adj(PF) 50 mcg/0.5 mL IM susp, kit acetaminophen [Tylenol] 325 mg PO Q4H PRN 01/01/20 01/10/20 History fenofibrate nanocrystallized 145 mg PO QAM 01/01/20 01/10/20 History furosemide 20 mg PO QAM 01/01/20 01/10/20 History ibuprofen [Advil] 400 mg PO Q4 PRN 01/01/20 01/10/20 History metformin 500 mg PO QAM 01/01/20 01/10/20 History omeprazole 40 mg PO QAM 01/01/20 01/10/20 History potassium chloride 10 meq PO QAM 01/01/20 01/10/20 History tolterodine 4 mg PO QAM 01/01/20 01/10/20 History Patient History Medical History CAD (coronary artery disease) moderate CAD per 2015 cardiac cath Carpal tunnel syndrome Gastroesophageal reflux disease controlled History of Lyme disease 2014 Hypercholesterolemia Hypertension Hypertension 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" Morbid obesity Stroke "stress induced" at age 39 Type 2 diabetes mellitus NIDDM Surgical History History of cardiac cath 2015 ([facility])- no stents History of colonoscopy 2019 History of dental surgery tooth replacement but since rejected and removed History of tubal ligation Family History Father Hypertension Myocardial infarction Lung cancer Sister Multiple sclerosis Mother Ovarian cancer Denies family history of Prostate cancer Breast cancer Colorectal cancer Social History Smoking Status: Never smoker Second Hand Exposure: No; Do You Dip or Chew Tobacco: No; Hx Alcohol Use: No Hx Substance Use: No Preferred Language: Nepali Communication Ability: Effective Visual Impairment: No Limitations Hearing Ability: Normal Beliefs That Will Affect Care: None marital status: Current Living Situation: Spouse Current Living Situation Comment: Joaquin current occupational status: retired Feels Safe at Home: Yes Safety Concerns: Feels Safe At This Time Childhood Exposure to Second-Hand Smoke: Yes Dental Care, Regularly: No Physical Activity Frequency: Does not Exercise Seatbelt Use: always Sunscreen Use: Yes Review of Systems Review of Systems: All systems reviewed & are unremarkable except as noted in HPI & below Physical Exam Physical Exam: Right upper extremity: There was typical motor and sensory blockade from the peripheral nerve block. Constitutional: well developed, well nourished and + well hydrated; not ill appearing ENMT: external ear and nose normal, oropharynx normal Neck: trachea midline, no thyromegaly Respiratory: normal respiratory effort Cardiovascular: Extremities: normal capillary refill; no edema Skin: no rashes, warm and dry Neurologic: Speech / Cognition: normal speech and normal cognition Psychiatric: A+Ox3, euthymic affect Results & Data ([facility]) Vital Signs (Past 12 Hours) Vital Signs Temp Pulse Pulse Resp BP BP Pulse Ox 01/10/20 08:55 60 18 217/88 H 217/115 H 97 01/10/20 08:45 60 18 215/142 H 220/106 H 97 01/10/20 08:35 68 18 175/69 H 172/91 H 99 01/10/20 08:25 65 18 188/89 H 186/115 H 99 01/10/20 08:18 36.8 C 60 20 179/100 H 98 01/10/20 05:35 37.3 C 63 20 217/133 H 97 Selected Entries 01/10/20 05:35 01/10/20 08:18 01/10/20 08:55 Blood Pressure [Left Arm] 217/133 H 179/100 H 217/88 H Laboratory Tests 01/10/20 07:08 SARS-CoV-2, RNA, NAAT NEGATIVE PG Care Time/CCT Total # of Minutes Spent Total Time Spent with Patient: Total time spent is greater than 50% in coordination of care (as documented) at patient's floor/unit and/or counseling patient: Coding Level of Care Code None Diagnoses Hypertensive urgency I16.0 Dysfunction of right rotator cuff M67.911
[2020-01-10] MEDS ORDERED: NON-FORMULARY MEDICATION (Acetaminophen [Tylenol] 325 MG) PO PRN (09:41)
[2020-01-10] MEDS ORDERED: PANTOprazole 40 MG TAB PO SCH (09:41)
[2020-01-10] MEDS ORDERED: GLUCOSE 40% GEL 15 GM TUBE PO PRN (10:30)
[2020-01-10] MEDS ORDERED: CARBOHYDRATES FOR HYPOGLYCEMIA PO PRN (10:30)
[2020-01-10] MEDS ORDERED: GLUCOSE 10 TABS/TUBE PO PRN (10:30)
[2020-01-10] MEDS ORDERED: GLUCAGON FOR INJ 1 MG VIAL IM PRN (10:30)
[2020-01-10] MEDS ORDERED: DEXTROSE 50% 50 ML SYRINGE IV PRN (10:30)
[2020-01-10 10:34] LABS: BUN Creatinine Ratio 20.1 (10-20); Calcium 9.2 mg/dl (8.5-10.1); Creatinine Clr Calc Pharmacy 108.5 ml/min; Est GFR (African American) 104.3; Potassium 3.9 mmol/L (3.5-5.1)
[2020-01-10 10:43] LABS: Troponin I 0.172 ng/ml (0-0.045)
[2020-01-10] MEDS: TOLTERODINE TARTRATE LA 4 MG CAPCR PO SCH (10:50)
[2020-01-10] MEDS: POTASSIUM CHLORIDE 10 MEQ TABCR PO SCH (10:50)
[2020-01-10] MEDS: FENOFIBRATE NANOCRYSTALLIZED 145 MG TABLET PO SCH (10:51)
[2020-01-10] MEDS: FUROSEMIDE 20 MG TAB PO SCH (10:51)
[2020-01-10] MEDS: INSULIN ASPART 100 UNITS/ML 3 ML PEN SC SCH ×3 (11:06→22:23)
[2020-01-10] MEDS: HydrALAZINE HCL 20 MG/ML VIAL IV PRN ×2 (12:31→23:30)
[2020-01-10] MEDS ORDERED: NITROGLYCERIN SL 0.4 MG/TAB TAB SL STA (12:38)
[2020-01-10] MEDS ORDERED: NITROGLYCERIN SL 0.4 MG/TAB TAB ONE (12:40)
[2020-01-10] MEDS: ACETAMINOPHEN 325 MG TAB PO PRN ×2 (12:46→19:48)
[2020-01-10] MEDS ORDERED: MoRPHine SULFATE 2 MG/ML CARP IV STA (13:32)
--- NOTE | 2020-01-10 14:41 | XRay Report ---
XR chest 1V portable HISTORY: 64 years-old Female Dyspnea, right brachial plexus block this morning acute shortness of br eath COMPARISON: Chest radiograph 01/02/2020 TECHNIQUE: Portable AP view of the chest FINDINGS: Cardiac silhouette is enlarged, unchanged. Medial lung apices are partially obscured by the patient's chin. No pneumothorax, pleural effusion, airspace consolidation or overt pulmonary edema. Mild chron ic interstitial coarsening of the lung bases. Degenerative changes of the shoulders and spine. IMPRESSION: No acute process. ACT 112: Negative or not required by law. The above report was generated using voice recognition software. It may contain grammatical, syntax o r spelling errors. Electronically signed by: Carlo Ho M.D. 01/10/2020 2:40 PM
[2020-01-10] MEDS ORDERED: LORazepam 0.5 MG TAB PO STA (16:37)
[2020-01-10] MEDS: ENOXAPARIN 150 MG/ML SYR SQ SCH (18:28)
[2020-01-10] MEDS: cloNIDine HCL 0.1 MG TAB PO SCH (19:47)
[2020-01-10] MEDS: VALSARTAN 80 MG TAB PO SCH (19:48)
[2020-01-10] MEDS ORDERED: VALSARTAN 80 MG TAB PO SCH (21:00)
[2020-01-10] MEDS ORDERED: ENOXAPARIN INJ 40 MG/0.4 ML SYR SQ SCH (21:00)
[2020-01-11] MEDS: ACETAMINOPHEN 325 MG TAB PO PRN ×2 (01:26→19:35)
--- NOTE | 2020-01-11 05:32 | Electrocardiogram Report ---
Test Reason : Blood Pressure : / mmHG Vent. Rate : 054 BPM Atrial Rate : 054 BPM P-R Int : 210 ms QRS Dur : 086 ms QT Int : 464 ms P-R-T Axes : 063 -57 136 degrees QTc Int : 440 ms Sinus bradycardia with 1st degree A-V block Left axis deviation Cannot rule out Anterior infarct , age undetermined Abnormal ECG When compared with ECG of 02-JAN-2020 15:04, Premature atrial complexes are no longer Present QRS axis Shifted left T wave inversion no longer evident in Anterior leads Confirmed by Delfin Armendariz ([id number]) on 01/11/2020 5:32:38 AM Referred By: Arnoldo Manuel Confirmed By:Delfin Armendariz
--- NOTE | 2020-01-11 05:45 | Electrocardiogram Report ---
Test Reason : Blood Pressure : / mmHG Vent. Rate : 057 BPM Atrial Rate : 057 BPM P-R Int : 204 ms QRS Dur : 086 ms QT Int : 450 ms P-R-T Axes : 074 -69 170 degrees QTc Int : 438 ms Sinus bradycardia with Premature atrial complexes Left axis deviation Cannot rule out Anterior infarct (cited on or before 08-FEB-2015) Abnormal ECG When compared with ECG of 10-JAN-2020 09:55, Premature atrial complexes are now Present Confirmed by Delfin Armendariz ([id number]) on 01/11/2020 5:45:23 AM Referred By: Arnoldo Manuel Confirmed By:Delfin Armendariz
[2020-01-11] MEDS: ENOXAPARIN 150 MG/ML SYR SQ SCH ×2 (06:16→17:27)
[2020-01-11] MEDS: cloNIDine HCL 0.1 MG TAB PO SCH ×2 (08:00→19:36)
[2020-01-11] MEDS: FUROSEMIDE 20 MG TAB PO SCH (08:00)
[2020-01-11] MEDS: FENOFIBRATE NANOCRYSTALLIZED 145 MG TABLET PO SCH (08:00)
[2020-01-11] MEDS: PANTOprazole 40 MG TAB PO SCH (08:00)
[2020-01-11] MEDS: TOLTERODINE TARTRATE LA 4 MG CAPCR PO SCH (08:00)
[2020-01-11] MEDS: POTASSIUM CHLORIDE 10 MEQ TABCR PO SCH (08:00)
[2020-01-11] MEDS: VALSARTAN 80 MG TAB PO SCH ×2 (08:01→19:36)
[2020-01-11 08:06] LABS: Hematocrit (blood only) 44.5 % (37-47); Hemoglobin 14.5 g/dL (12.0-16.0); Mean Corpuscular Hemoglobin 29.7 pg (25-34); Mean Corpuscular Hgb Conc 32.6 g/dL (32-36); Mean Platelet Volume 10.1 fL (7.4-10.4); Platelet Count 298 K/uL (130-400); RDW Coefficient of Variation 13.9 % (11.5-14.5); Red Blood Count 4.89 M/uL (4.2-5.4); White Blood Count 7.33 K/uL (4.8-10.8)
[2020-01-11 08:31] LABS: BUN Creatinine Ratio 19.7 (10-20); Calcium 9.6 mg/dl (8.5-10.1); Creatinine Clr Calc Pharmacy 95.6 ml/min; Est GFR (African American) 90.3; Est GFR (Non-African American) 77.9; Potassium 3.9 mmol/L (3.5-5.1)
--- NOTE | 2020-01-11 08:32 | Anesthesiology Progress Note ---
Date of Service January 11, 2020 Anesthesia Post Procedure Vital Signs Vital Signs: Temp Pulse Pulse Resp BP BP Pulse Ox 01/11/20 07:42 36.5 C 59 L 19 170/79 H 94 01/11/20 03:38 36.7 C 61 16 165/81 H 93 01/10/20 23:19 36.5 C 62 16 199/84 H 97 01/10/20 22:35 53 L 01/10/20 19:11 36.6 C 53 L 18 187/84 H 95 01/10/20 17:54 64 182/76 H 01/10/20 16:54 65 203/72 H 01/10/20 15:28 36.6 C 53 L 18 186/79 H 97 01/10/20 12:44 64 139/81 01/10/20 12:34 55 L 18 192/70 H 96 01/10/20 11:45 36.7 C 54 L 20 166/105 H 95 01/10/20 10:49 54 L 182/79 H 01/10/20 09:50 36.6 C 68 20 178/104 H 95 01/10/20 09:15 36.8 C 55 L 18 193/91 H 95 01/10/20 09:05 58 L 18 186/107 H 185/106 H 98 01/10/20 08:55 60 18 217/88 H 217/115 H 97 01/10/20 08:45 60 18 215/142 H 220/106 H 97 01/10/20 08:35 68 18 175/69 H 172/91 H 99 Notes Mental Status: alert / awake / arousable Patient Amnestic to Procedure: Yes Nausea / Vomiting: adequately controlled Pain: adequately controlled Airway Patency, RR, SpO2: stable & adequate BP & HR: stable & adequate Hydration State: stable & adequate Anesthetic Complications: no major complications apparent and Pt Satisfied with anesthetic care
[2020-01-11] MEDS: INSULIN ASPART 100 UNITS/ML 3 ML PEN SC SCH ×4 (08:34→20:54)
[2020-01-11 08:38] LABS: Troponin I 0.181 ng/ml (0-0.045)
--- NOTE | 2020-01-11 14:11 | XCELERA ---
[id number]
[2020-01-11] MEDS: HydrALAZINE HCL 20 MG/ML VIAL IV PRN (19:35)
--- NOTE | 2020-01-11 20:43 | Hospitalist Progress Note ---
Date of Service January 11, 2020 Assessment & Plan (1) Hypertensive urgency: SBP 250-260 on arterial line in the OR prior to surgery on 01/09 some dyspnea when laying down, no headache, no chest pain/pressure she took her Clonidine 0.1mg the morning of surgery, no other medications responded to Hydralazine 10mg IV given in the PACU initially and then pressure elevated again continue on her Clonidine 0.1mg BID, increase Valsartan to 80mg BID, Lasix 20mg daily BP better today EKG with sinus with 1st degree AV block, some ST and TW changes in lateral leads troponin 0.19 and repeat 6 hours later 0.19 and then 0.18 this morning, no indication that this is ACS as troponin the exact same CXR with no acute process today pressures are better, chief complaint is dyspnea, see below (2) Dyspnea: patient says she just does not feel right breathing lungs clear, no wheezing, no hypoxia no tachycardia and no real risk factors for PE, she has been active right up until surgery, no calf tenderness or swelling patient can breathe fine sitting upright laying back, even slightly, like when she had her echo, causes dyspnea that is severe she can ambulate without severe symptoms, it really seems positional according to anesthesiology, sometimes nerve block can cause dyspnea CXR did not show any elevation of right diaphragm to suggest phrenic nerve paralysis (3) CAD (coronary artery disease): h/o cath in 2014, moderate disease, no stents continue aspirin some lateral ST and TW changes, check echo: EF preserved, normal valves, normal RV function troponin 0.19 on two draws, repeat today it is 0.18 (4) Dysfunction of right rotator cuff: surgery on hold until HTN is better and dyspnea resolved (5) Type 2 diabetes mellitus: diabetic diet hold oral agents, use Novolog SS with correction factor only (6) Gastroesophageal reflux disease: Protonix (7) Hypercholesterolemia: (8) Asthma: Admission and Anticipated Discharge Date Admission Date: January 10, 2020 Subjective patient still with dyspnea, specifically orthopnea and dyspnea on exertion anesthesiology reports that some times patients can experience dyspnea after nerve block, can last a few days HR normal, no tachypnea, no hypoxia, no further chest pain BP is better most of the day on increased Valsartan eating well she is motivated to walk in the hallway, will have aide walk with her Review of Systems Review of Systems: All systems reviewed & are unremarkable except as noted in Subjective Respiratory: + dyspnea and + dyspnea on exertion; no cough Cardiovascular: + orthopnea; no chest pain, no palpitations and no edema Physical Exam Constitutional: well developed and + morbidly obese; no acute distress Eyes: PERRL, conjunctivae normal, anicteric sclerae ENMT: external ear and nose normal, oropharynx normal Neck: trachea midline, no thyromegaly Respiratory: normal respiratory effort, lungs clear to auscultation Cardiovascular: RRR, no murmur, no edema Gastrointestinal (Abdomen): normal bowel sounds, soft, nontender, no hepatosplenomegaly Musculoskeletal: Head/Neck/Chest: normocephalic, head atraumatic and neck supple Extremities: extremities normal to inspection and strength 5/5 throughout; no cyanosis, no clubbing and no petechiae Shoulder: + limited ROM (right, due to pain) Ankle: + ankle abnormal to inspection (right ankle swollen, tender) Skin: no rashes, warm and dry Neurologic: patellar DTR's 2+ bilat, sensation intact and PERRL, EOMI, accommodation nl, no face palsy, no dysarthria Psychiatric: A+Ox3, euthymic affect Lymphatic: no cervical or axillary lymphadenopathy Results & Data Results & Data ([facility]) Vital Signs (Past 12 Hours) Vital Signs Temp Pulse Resp BP Pulse Ox 01/11/20 20:02 148/74 H 01/11/20 19:42 36.7 C 57 L 18 220/93 H 95 01/11/20 16:13 36.4 C L 51 L 18 148/85 H 94 01/11/20 11:53 36.7 C 55 L 19 171/80 H 94 Laboratory Results Laboratory Results - last 24 hr 01/11/20 01/11/20 01/11/20 07:27 07:33 07:33 WBC 7.33 RBC 4.89 Hgb 14.5 Hct 44.5 MCV 91.0 MCH 29.7 MCHC 32.6 RDW Std Deviation 46.0 RDW Coeff of Jonas 13.9 Plt Count 298 MPV 10.1 Sodium 137 Potassium 3.9 Chloride 106 Carbon Dioxide 23 Anion Gap 8.0 BUN 16 Creatinine 0.80 Est Cr Clr Drug Dosing 95.6 Est GFR ( Amer) 90.3 Est GFR (Non-Af Amer) 77.9 BUN/Creatinine Ratio 19.7 Glucose 126 H POC Glucose 123 H Calcium 9.6 Troponin I 0.181 H* 01/11/20 01/11/20 01/11/20 11:25 16:32 20:27 WBC RBC Hgb Hct MCV MCH MCHC RDW Std Deviation RDW Coeff of Jonas Plt Count MPV Sodium Potassium Chloride Carbon Dioxide Anion Gap BUN Creatinine Est Cr Clr Drug Dosing Est GFR ( Amer) Est GFR (Non-Af Amer) BUN/Creatinine Ratio Glucose POC Glucose 105 H 125 H 124 H Calcium Troponin I Medications Administered Current Inpatient Medications Acetaminophen (Acetaminophen 325 Mg Tab) 650 mg PO Q4H PRN PRN Reason: Pain or Fever Stop: 02/09/20 09:40 Last Admin: 01/11/20 19:35 Dose: 650 mg Documented by: Clonidine HCl (Clonidine Hcl 0.1 Mg Tab) 0.1 mg PO BID TAMARA Stop: 02/09/20 20:59 Last Admin: 01/11/20 19:36 Dose: 0.1 mg Documented by: Dextrose (Dextrose 50% 50 Ml Syringe) 25 - 50 ml IV UD PRN; Protocol PRN Reason: Hypoglycemia Protocol Stop: 02/09/20 10:29 Fenofibrate (Fenofibrate Nanocrystallized 145 Mg Tablet) 145 mg PO QAM COUNT INCLUDES THE [facility] Stop: 02/09/20 09:40 Last Admin: 01/11/20 08:00 Dose: 145 mg Documented by: Furosemide (Furosemide 20 Mg Tab) 20 mg PO QAM TAMARA Stop: 02/09/20 09:40 Last Admin: 01/11/20 08:00 Dose: 20 mg Documented by: Glucagon (Glucagon For Inj 1 Mg Vial) 1 mg IM UD PRN; Protocol PRN Reason: Hypoglycemia Protocol Stop: 02/09/20 10:29 Glucose (Glucose 40% Gel 15 Gm Tube) 15 - 30 gm PO UD PRN; Protocol PRN Reason: Hypoglycemia Protocol Stop: 02/09/20 10:29 Glucose (Glucose 10 Tabs/Tube) 4 - 8 tabs PO UD PRN; Protocol PRN Reason: Hypoglycemia Protocol Stop: 02/09/20 10:29 Hydralazine HCl (Hydralazine Hcl 20 Mg/Ml Vial) 10 mg IV Q6 PRN PRN Reason: Blood Pressure - High Stop: 02/09/20 09:40 Last Admin: 01/11/20 19:35 Dose: 10 mg Documented by: Insulin Aspart (Insulin Aspart 100 Units/Ml 3 Ml Pen) 0 units SC ACHS COUNT INCLUDES THE [facility]; Protocol Stop: 02/09/20 11:29 Last Admin: 01/11/20 16:45 Dose: Not Given Documented by: Miscellaneous (Carbohydrates For Hypoglycemia ) 15 - 30 gm PO UD PRN PRN Reason: Hypoglycemia Treatment Stop: 02/09/20 10:29 Ondansetron HCl (Ondansetron Inj 2 Mg/Ml 2 Ml Vial) 4 mg IV Q6H PRN PRN Reason: Nausea Stop: 02/09/20 09:40 Pantoprazole Sodium (Pantoprazole 40 Mg Tab) 40 mg PO [facility]; Protocol Stop: 02/10/20 08:59 Last Admin: 01/11/20 08:00 Dose: 40 mg Documented by: Potassium Chloride (Potassium Chloride 10 Meq Tabcr) 10 [facility] Stop: 02/09/20 09:40 Last Admin: 01/11/20 08:00 Dose: 10 meq Documented by: Tolterodine Tartrate (Tolterodine Tartrate La 4 Mg Capcr) 4 mg [facility] Stop: 02/09/20 09:40 Last Admin: 01/11/20 08:00 Dose: 4 mg Documented by: Valsartan (Valsartan 80 Mg Tab) 80 mg PO BID COUNT INCLUDES THE [facility] Stop: 02/09/20 20:59 Last Admin: 01/11/20 19:36 Dose: 80 mg Documented by: PG Care Time/CCT Total # of Minutes Spent Total Time Spent with Patient: Total time spent is greater than 50% in coordination of care (as documented) at patient's floor/unit and/or counseling patient: Coding Level of Care Code 05164 Subseq Hosp Care Lvl 3 Diagnoses Hypertensive urgency I16.0 Dyspnea R06.00 CAD (coronary artery disease) I25.10 Dysfunction of right rotator cuff M67.911 Type 2 diabetes mellitus E11.9 Gastroesophageal reflux disease K21.9 Hypercholesterolemia E78.00 Asthma J45.909
[2020-01-12] MEDS: ACETAMINOPHEN 325 MG TAB PO PRN (03:55)
[2020-01-12] MEDS: HydrALAZINE HCL 20 MG/ML VIAL IV PRN (03:55)
[2020-01-12] MEDS: FENOFIBRATE NANOCRYSTALLIZED 145 MG TABLET PO SCH (08:26)
[2020-01-12] MEDS: TOLTERODINE TARTRATE LA 4 MG CAPCR PO SCH (08:26)
[2020-01-12] MEDS: cloNIDine HCL 0.1 MG TAB PO SCH (08:27)
[2020-01-12] MEDS: PANTOprazole 40 MG TAB PO SCH (08:27)
[2020-01-12] MEDS: FUROSEMIDE 20 MG TAB PO SCH (08:27)
[2020-01-12] MEDS: VALSARTAN 80 MG TAB PO SCH (08:27)
[2020-01-12] MEDS: POTASSIUM CHLORIDE 10 MEQ TABCR PO SCH (08:27)
[2020-01-12] MEDS: INSULIN ASPART 100 UNITS/ML 3 ML PEN SC SCH (08:27)
[2020-01-12] MEDS ORDERED: AMLODIPINE BESYLATE 5 MG TAB PO SCH (09:00)
--- NOTE | 2020-01-12 11:07 | Discharge Summary ---
Date of Service January 12, 2020 Admission HPI Per Admitting Provider 64 yo female who presented today for right shoulder arthroplasty, was found to have systolic pressures in the range of 250-260 based on arterial line findings. She said that she felt fine this morning prior to surgery. She only took her Clonidine 0.1mg this morning, did not take her Valsartan 40mg or her Lasix 20mg. She does not have any chest pain but she did admit to feeling short of breath when they laid her flat on the table. She says she typically is very active, always on the move, going to [place] markets and stores, buying antiques. She never gets chest pain or pressure with activity. She does not get very short of breath with activity either. She has a history of CVA at the age of 39 that she says was due to stress, she says her father was dying from cancer at that time. She has a history of heart catheterization in 2014, no stents required. She says that she has been waiting to get the right shoulder fixed since October 2019. She has been eating and drinking well prior to this surgery, no recent issues with moving her bowels or making urine. She received Hydralazine IV and BP improved from 250-260 range to 180-200 systolic. Surgery cancelled, asked to admit the patient and get better blood pressure control before surgery is considered again. Principal Diagnosis Hypertensive urgency Discharge Exam Constitutional well developed and + morbidly obese; no acute distress Eyes PERRL, conjunctivae normal, anicteric sclerae ENMT external ear and nose normal, oropharynx normal Neck trachea midline, no thyromegaly Respiratory normal respiratory effort, lungs clear to auscultation Cardiovascular RRR, no murmur, no edema Gastrointestinal (Abdomen) normal bowel sounds, soft, nontender, no hepatosplenomegaly Musculoskeletal Head/Neck/Chest: normocephalic, head atraumatic and neck supple Extremities: extremities normal to inspection and strength 5/5 throughout; no cyanosis, no clubbing and no petechiae Shoulder: + limited ROM (right, due to pain) Ankle: + ankle abnormal to inspection (right ankle swollen, tender) Skin no rashes, warm and dry Neurologic patellar DTR's 2+ bilat, sensation intact and PERRL, EOMI, accommodation nl, no face palsy, no dysarthria Psychiatric A+Ox3, euthymic affect Lymphatic no cervical or axillary lymphadenopathy Discharge Data Allergies Allergy/AdvReac Type Severity Reaction Status Date / Time prednisone Allergy Unknown Elevated BP Verified 01/10/20 05:26 Sulfa (Sulfonamide Allergy Unknown Hives Verified 01/10/20 05:26 Antibiotics) cortisone Allergy Verified 01/10/20 05:26 Procedures Performed Operation Date: 01/10/20 07:15 Actual Procedures p Arthroscopy Right Shoulder Rotator Cuff Repair(Not Applicable) - Arnoldo Manuel Ordered Studies 01/10/20 05:00 US - OR guided needle placemen Routine Hospital Course (1) Hypertensive urgency: SBP 250-260 on arterial line in the OR prior to surgery on 01/09 some dyspnea when laying down, no headache, no chest pain/pressure she took her Clonidine 0.1mg the morning of surgery, no other medications responded to Hydralazine 10mg IV given in the PACU initially and then pressure elevated again continue on her Clonidine 0.1mg BID, increase Valsartan to 80mg BID, Lasix 20mg daily BP better but not at goal added Norvasc 5mg daily, good response discharge home on Clonidine 0.1mg BID, Valsartan 80mg BID, Norvasc 5mg daily, Lasix 20mg daily EKG with sinus with 1st degree AV block, some ST and TW changes in lateral leads but very subtle troponin 0.19 and repeat 6 hours later 0.19 and then 0.18, no indication that this is ACS as troponin the exact same CXR with no acute process today pressures are better, she feels ready to go home, will discharge follow up with PCP this week for blood pressure check (2) Dyspnea: patient says she just does not feel right breathing lungs clear, no wheezing, no hypoxia no tachycardia and no real risk factors for PE, she has been active right up until surgery, no calf tenderness or swelling patient can breathe fine sitting upright laying back, even slightly, like when she had her echo, causes dyspnea that is severe she can ambulate without severe symptoms, it really seems positional according to anesthesiology, sometimes nerve block can cause dyspnea CXR did not show any elevation of right diaphragm to suggest phrenic nerve paralysis patient getting better today, she feels ready to go home (3) CAD (coronary artery disease): h/o cath in 2014, moderate disease, no stents continue aspirin some lateral ST and TW changes, check echo: EF preserved, normal valves, normal RV function troponin 0.19 on two draws, repeat it is 0.18 (4) Dysfunction of right rotator cuff: surgery on hold until HTN is better and dyspnea resolved (5) Type 2 diabetes mellitus: diabetic diet hold oral agents, use Novolog SS with correction factor only (6) Gastroesophageal reflux disease: Protonix (7) Hypercholesterolemia: (8) Asthma: Total Time Total Time Spent Total Time Spent (In Minutes): 33 minutes Total Time Includes: Examination of the Patient, Discharge Planning and Medication Reconciliation Discharge Plan Discharge Items Patient Disposition: Home - Self-Care Reason For Visit: Hypertensive urgency Discharge Diagnosis: Right rotator cuff tear Hypertensive urgency Shortness of breath Condition on Discharge: Good Goals: improve control over blood pressure follow up with Dr. Manuel to rescheduled operation follow up with PCP in a week to check blood pressure Activity: Per Instructions section Non-emergency contact: Primary Care Provider Call non-emergency contact if: you have any medication questions Follow-up/Referrals: Gonzalo Torres, [Primary Care Provider] - (next week for blood pressure check) Arnoldo Maunel [Surgeon] - Diet: Carb Consistent or DM2, Heart Healthy and Low Sodium (2gm) Addtl Attending Provider Instructions: Medications: - VALSARTAN: dose increased to 80mg twice a day from 40mg - AMLODIPINE: 5mg daily, new blood pressure medication for better control Hypertensive urgency: marked elevation in blood pressure in the OR at 250-260 systolic, 140 diastolic gradually reduced by increasing Valsartan to 80mg twice a day now added Norvasc 5mg daily with even better control follow a low sodium diet follow up next week with Dr. Torres for blood pressure check Shortness of breath likely due to the nerve block which is a known adverse effect CXR clear, lungs clear on exam never required any oxygen EKG without significant ischemic changes echocardiogram with normal ejection fraction, no valve disease -- no evidence of heart failure symptoms should improve over the next few days Pending Studies at Discharge: No Stand-Alone Forms: [facility] Medications and DC Order Prescriptions: New valsartan [Diovan] 80 mg Tablet 80 mg PO BID 30 Days Qty: 60 RF: 1 amlodipine [Norvasc] 5 mg Tablet 5 mg PO QAM 30 Days Qty: 30 RF: 1 Continued clemastine 2.68 mg tablet 2.68 mg PO BID PRN (Reason: allergy symptoms) Qty: 180 RF: 1 clonidine HCl 0.1 mg tablet 0.1 mg PO BID Qty: 180 RF: 1 fluticasone propionate [Flonase Allergy Relief] 50 mcg/actuation spray,suspension 2 sprays INTNAS DAILY PRN (Reason: nasal congestion) Qty: 54.6 RF: 2 aspirin [Adult Low Dose Aspirin] 81 mg tablet,delayed release (DR/EC) 81 mg PO QAM RF: 0 Shingrix (PF) 50 mcg/0.5 mL suspension for reconstitution 0.5 ml IM .COMPLEX Qty: 1 RF: 1 ibuprofen [Advil] 200 mg Tablet 400 mg PO Q4 PRN (Reason: Pain) RF: 0 acetaminophen [Tylenol] 325 mg Capsule 325 mg PO Q4H PRN (Reason: pain) RF: 0 tolterodine 4 mg capsule,extended release 24hr 4 mg PO QAM RF: 0 potassium chloride 10 mEq tablet extended release 10 meq PO QAM RF: 0 omeprazole 40 mg capsule,delayed release(DR/EC) 40 mg PO QAM RF: 0 furosemide 20 mg tablet 20 mg PO QAM RF: 0 metformin 500 mg tablet extended release 24hr 500 mg PO QAM RF: 0 fenofibrate nanocrystallized 145 mg tablet 145 mg PO QAM RF: 0 Discontinued valsartan 40 mg tablet 40 mg PO BID Qty: 60 RF: 2 Discharge Orders: Discharge Order (Routine); Ordered 01/12/20 Ordered By: Rigoberto Mcclendon/Other Patient Handouts: Amlodipine tablets, Valsartan tablets Admission Data Admit Date/Time: 01/10/20 09:03 Attending Provider: Rigoberto Johnson Admit Provider: Rigoberto Johnson Primary Care Provider: Gonzalo Torres Other Interventions: Discharge Summary Assessment (RN) Last Done: 01/12/20 11:02 Coding Level of Care Code D/C Day Management >30 mins Diagnoses Hypertensive urgency I16.0 Dyspnea R06.00 CAD (coronary artery disease) I25.10 Dysfunction of right rotator cuff M67.911 Type 2 diabetes mellitus E11.9 Gastroesophageal reflux disease K21.9 Hypercholesterolemia E78.00 Asthma J45.909
== END 2020-01-12 11:59 | disposition home or self-care (01) ==
LOC: ASU 05:03 → INTOOBSV 09:03 → 2S 09:03

== ENCOUNTER 2021-10-04 14:13 | Inpatient (IN) ==
--- NOTE | 2021-10-04 14:41 | ED Telehealth Note ---
Telehealth Telehealth Options: Telephone only (Video was not active on the patient's side) For the duration of the visit, provider was performing the assessment from: A different facility than the patient After establishing a telemedicine visit, patient was: Patient was verified with two unique identifiers Total Time Spent (minutes): 5 Impression & Plan Biliary colic, Right upper quadrant abdominal pain, Gallstones Note/Exam/Outcome Date of Service October 04, 2021 ED Telehealth Outcome Referred to ED for in person visit ED Visit Note Pleasant 66-year-old female who utilizes telehealth services today for evaluation of epigastric and right upper quadrant pain after eating her breakfast, and drinking coffee this morning. The patient reports that the pain is progressively worsening. The patient has known history of gallbladder sludge and gallstones. She was scheduled for elective laparoscopic cholecystectomy tomorrow, however her case was canceled because she tested positive for COVID- 19. The patient called us to see if she could come to the emergency department even though she was positive for COVID-19. I did discuss several different possibilities, including acute cholecystitis. I did recommend that she come into the emergency department for pain management, laboratory studies and repeat ultrasound of the gallbladder. The patient was in agreement, and will come to the emergency department for further evaluation. It is noted that video evaluation could not be performed, only audio with this communication. General General: + awake and + alert Psych Psych: + appropriate, + normal mood and + normal affect Past Med/Surg History Medical History CAD (coronary artery disease) Moderate CAD per 2015 cardiac cath-F/U DR PADMINI SMART Mild to moderate CAD (nonobstructive) per cardio records Carpal tunnel syndrome Dyspnea on effort Due to deconditioning per patient Gastroesophageal reflux disease Controlled History of Lyme disease 2014 Hypercholesterolemia Hypertension (BP during procedure 12/2019 went up to 265/156- case was cancelled and pt admitted to [facility]) -No significant issues noted with 01/2020 right shoulder surgery Lung collapse - 01/10/20 during procedure (right shoulder arthroscopy, RCR) at [facility] > was result of nerve block. Hospitalized for 3 days> Resolved (No mention of this in discharge summary- pt had dyspnea when laying flat after nerve block placed but CXR showed no issues with diaphragm). 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 "benign" Morbid obesity Stress incontinence Stroke "Stress induced" at age 39-NO ISSUES SINCE-SOME WEAKNESS RIGHT ARM REMAINS Type 2 diabetes mellitus NIDDM Surgical History H/O lateral meniscus repair of right knee History of cardiac cath 2014 ([facility])- no stents History of colonoscopy 2018 History of dental surgery tooth replacement but since rejected and removed History of tubal ligation Hx of umbilical hernia repair x2 S/P complete repair of rotator cuff Superior capsular reconstruction February 2020- and bicep Family History Father Hypertension Myocardial infarction Lung cancer Diabetes Heart disease Cancer Sister Multiple sclerosis Mother Ovarian cancer Diabetes Cancer Heart disease Stroke Denies family history of Prostate cancer Breast cancer Colorectal cancer Social History Smoking Status: Never smoker Second Hand Exposure: Yes (FATHER SMOKED); Hx Alcohol Use: No Hx Substance Use: No Preferred Language: Italian Communication Ability: Effective Visual Impairment: No Limitations Hearing Ability: Normal Cytopathologist Required: No Beliefs That Will Affect Care: None marital status: Current Living Situation: Spouse Current Living Situation Comment: [facility] current occupational status: retired How many Children do You have: 2 Feels Safe at Home: Yes Childhood Exposure to Second-Hand Smoke: Yes during the past year weight has: remained stable Dental Care, Regularly: No Physical Activity Frequency: Does not Exercise Seatbelt Use: always Sunscreen Use: Yes Assistive Devices: Denture - Upper Allergies Allergies Allergy/AdvReac Type Severity Reaction Status Date / Time cortisone Allergy Unknown Hypertensio Verified 09/24/21 08:54 n prednisone Allergy Unknown Elevated BP Verified 09/24/21 08:54 Sulfa (Sulfonamide Allergy Unknown Hives Verified 09/24/21 08:54 Antibiotics) Home Meds Home Medications Medication Instructions Recorded Confirmed aspirin 81 mg tablet,delayed 81 mg PO QAM 11/17/18 10/02/21 release (Adult Low Dose Aspirin) acetaminophen 325 mg capsule 325 mg PO Q4H PRN 01/01/20 10/02/21 (Tylenol) atorvastatin 80 mg tablet 80 mg PO QAM 09/24/21 10/02/21 Previous Rx's Medication Instructions Recorded fluticasone propionate 50 2 sprays INTNAS DAILY PRN #54.6 ml 10/24/19 mcg/actuation nasal spray,suspension (Flonase Allergy Relief) varicella-zoster glycoE [id number] 0.5 ml IM .COMPLEX #1 ea 11/26/19 adj(PF) 50 mcg/0.5 mL IM susp, kit (Shingrix (PF)) clemastine 2.68 mg tablet 2.68 mg PO BID PRN #180 tab 02/16/21 fenofibrate nanocrystallized 145 See Rx Instructions .ROUTE 03/10/21 mg tablet .COMPLEX #90 tablet potassium chloride 10 mEq See Rx Instructions .ROUTE 03/10/21 tablet,extended release .COMPLEX #90 tab furosemide 20 mg tablet 20 mg PO QAM #90 tab 03/24/21 valsartan 80 mg tablet (Diovan) 80 mg PO BID #180 tab 04/27/21 omeprazole 40 mg capsule,delayed 40 mg PO QAM #90 cap 05/27/21 release tolterodine 4 mg capsule,extended 4 mg PO QAM #90 cap 06/25/21 release 24 hr clonidine HCl 0.1 mg tablet 0.1 mg PO BID #180 tab 08/03/21 metformin 1,000 mg tablet,extended 1,000 mg PO BID #60 tab 08/31/21 release 24hr amlodipine 5 mg tablet (Norvasc) 5 mg PO QAM #90 tab 09/15/21 benzonatate 100 mg capsule 100 mg PO TID PRN #30 cap 10/02/21 nirmatrelvir 300 mg (150 mg x See Rx Instructions PO .COMPLEX 10/02/21 2)-ritonavir 100 mg tablet (EUA) #30 tab (Paxlovid 300 mg () Results & Data (ED) Home Medications Current Medication List: was personally reviewed by me Discharge Plan Visit Data Chief Complaint: Telehealth Stated Complaint: ABD PAIN SEVERE GALLBLADDER SX CX D/T COVID+FRI ED Provider: Colby Gonzalez ED Midlevel Provider: Kurt Riojas Discharge Problem: Biliary colic, Right upper quadrant abdominal pain, Gallstones Patient Disposition: Still a Patient Discharge Instructions Activity Restrictions/Additional Instructions: Please come to the emergency department for further reevaluation of your condition. Forms Stand Alone Forms: My [facility] [address] Prescriptions Prescriptions: No Action fluticasone propionate [Flonase Allergy Relief] 50 mcg/actuation spray,suspension 2 sprays INTNAS DAILY PRN (Reason: nasal congestion) Qty: 54.6 RF: 2 clemastine 2.68 mg tablet 2.68 mg PO BID PRN (Reason: allergy symptoms) Qty: 180 RF: 1 fenofibrate nanocrystallized 145 mg tablet See Rx Instructions .ROUTE .COMPLEX Qty: 90 RF: 3 potassium chloride 10 mEq tablet extended release See Rx Instructions .ROUTE .COMPLEX Qty: 90 RF: 3 furosemide 20 mg tablet 20 mg PO QAM Qty: 90 RF: 1 valsartan [Diovan] 80 mg tablet 80 mg PO BID Qty: 180 RF: 1 omeprazole 40 mg capsule,delayed release(DR/EC) 40 mg PO QAM Qty: 90 RF: 1 tolterodine 4 mg capsule,extended release 24hr 4 mg PO QAM Qty: 90 RF: 1 clonidine HCl 0.1 mg tablet 0.1 mg PO BID Qty: 180 RF: 1 amlodipine [Norvasc] 5 mg tablet 5 mg PO QAM Qty: 90 RF: 1 aspirin [Adult Low Dose Aspirin] 81 mg tablet,delayed release (DR/EC) 81 mg PO QAM RF: 0 metformin 1,000 mg tablet extended release 24hr 1,000 mg PO BID Qty: 60 RF: 3 Paxlovid (EUA) 150 mg x 2- 100 mg tablet See Rx Instructions PO .COMPLEX Qty: 30 RF: 0 benzonatate 100 mg capsule 100 mg PO TID PRN (Reason: cough) Qty: 30 RF: 0 Shingrix (PF) 50 mcg/0.5 mL suspension for reconstitution 0.5 ml IM .COMPLEX Qty: 1 RF: 1 acetaminophen [Tylenol] 325 mg Capsule 325 mg PO Q4H PRN (Reason: pain) RF: 0 atorvastatin 80 mg tablet 80 mg PO QAM RF: 0 Referrals Referrals: Gonzalo Torres, [Primary Care Provider] -
[2021-10-04] MEDS ORDERED: ONDANSETRON INJ 2 MG/ML 2 ML VIAL IV STA (15:54)
[2021-10-04] MEDS ORDERED: SODIUM CHLORIDE 0.9% 1000ML 1,000 ML IV STA (15:54)
[2021-10-04] MEDS ORDERED: MoRPHine SULFATE 4 MG/ML 1 ML CARP\\VIAL IV STA (15:54)
[2021-10-04 16:26] LABS: Basophils # (auto) 0.01 K/uL (0-0.2); Basophils % (auto) 0.2 %; Eosinophils # (auto) 0.04 K/uL (0-0.5); Eosinophils % (auto) 0.8 %; Immature Granulocytes # (auto) 0.01 K/uL (0.00-0.02); Immature Granulocytes % (auto) 0.2 %; Lymphocytes # (auto) 1.64 K/uL (1.2-3.4); Lymphocytes % (auto) 34.1 %; Mean Corpuscular Hgb Conc 33.3 g/dL (32-36); Mean Corpuscular Volume 87.1 fL (80-100); Monocytes # (auto) 0.27 K/uL (0.11-0.59); Monocytes % (auto) 5.6 %; Neutrophils # (auto) 2.84 K/uL (1.4-6.5); Neutrophils % (auto) 59.1 %; Platelet Count 180 K/uL (130-400); RDW Coefficient of Variation 13.7 % (11.5-14.5); Red Blood Count 4.82 M/uL (4.2-5.4); White Blood Count 4.81 K/uL (4.8-10.8)
--- NOTE | 2021-10-04 16:26 | XRay Report ---
XR chest 1V portable HISTORY: Cough - COVID positive COMPARISON: Chest 01/10/2020. FINDINGS: No pneumothorax or no pleural effusions. The cardiac silhouette is mildly enlarged. No evid ence for pulmonary edema. No focal lung consolidations to suggest pneumonia. No evidence for pulmonar y edema. Slight prominence of interstitial markings, unchanged. This is likely chronic. IMPRESSION: No significant change compared to the prior study. No acute process. ACT 112: Negative or not required by law. Electronically signed by: Cesar Acevedo M.D. 10/04/2021 4:25 PM
--- NOTE | 2021-10-04 16:27 | Emergency Department Note ---
History of Present Illness General Chief complaint: Abdominal Pain Stated complaint: ABD PAIN SEVERE GALLBLADDER SX CX D/T COVID+TUE Time Seen by Provider: 10/04/21 14:24 History of Present Illness Maximum Pain Intensity: 8 Pleasant 66-year-old female who presents to the emergency department after engaging in a telehealth consult with me earlier this afternoon. The patient reports progressively worsening epigastric and right upper quadrant pain. The patient was scheduled for laparoscopic cholecystectomy tomorrow with Dr. Morris. Unfortunately, her surgery was canceled because she had a positive COVID-19 test on Tuesday. The patient reports that she has been sick now for over a week. She denies any significant symptoms from COVID-19. She has had a persistent cough. She denies shortness of breath, chest pain or upper back pain. She also denies any change in stool color or consistency. She denies any pain radiating into her back, chest or shoulder. The patient rates her discomfort an 8 out of 10. Home Medications Medication Instructions Recorded Confirmed Type aspirin 81 mg tablet,delayed 81 mg PO QAM 11/17/18 10/04/21 History release (Adult Low Dose Aspirin) fluticasone propionate 50 2 sprays INTNAS DAILY PRN #54.6 ml 10/24/19 10/04/21 Rx mcg/actuation nasal spray,suspension (Flonase Allergy Relief) acetaminophen 325 mg capsule 325 mg PO Q4H PRN 01/01/20 10/04/21 History (Tylenol) clemastine 2.68 mg tablet 2.68 mg PO BID PRN #180 tab 02/16/21 10/04/21 Rx furosemide 20 mg tablet 20 mg PO QAM #90 tab 03/24/21 10/04/21 Rx valsartan 80 mg tablet (Diovan) 80 mg PO BID #180 tab 04/27/21 10/04/21 Rx omeprazole 40 mg capsule,delayed 40 mg PO QAM #90 cap 05/27/21 10/04/21 Rx release tolterodine 4 mg capsule,extended 4 mg PO QAM #90 cap 06/25/21 10/04/21 Rx release 24 hr clonidine HCl 0.1 mg tablet 0.1 mg PO BID #180 tab 08/03/21 10/04/21 Rx metformin 1,000 mg tablet,extended 1,000 mg PO BID #60 tab 08/31/21 10/04/21 Rx release 24hr amlodipine 5 mg tablet (Norvasc) 5 mg PO QAM #90 tab 09/15/21 10/04/21 Rx atorvastatin 80 mg tablet 80 mg PO HS 09/24/21 10/04/21 History benzonatate 100 mg capsule 100 mg PO TID PRN #30 cap 10/02/21 10/04/21 Rx nirmatrelvir 300 mg (150 mg x See Rx Instructions PO .COMPLEX 10/02/21 10/04/21 Rx 2)-ritonavir 100 mg tablet (EUA) #30 tab (Paxlovid 300 mg () fenofibrate nanocrystallized 145 145 mg PO DAILY 10/04/21 10/04/21 History mg tablet potassium chloride 10 mEq 10 meq PO QAM 10/04/21 10/04/21 History tablet,extended release Allergies Allergy/AdvReac Type Severity Reaction Status Date / Time Sulfa (Sulfonamide Allergy Intermediate Hives Verified 10/04/21 15:58 Antibiotics) cortisone AdvReac Intermediate Hypertensio Verified 10/04/21 15:58 n prednisone AdvReac Intermediate Elevated BP Verified 10/04/21 15:58 Past Med/Surg History Medical History CAD (coronary artery disease) Moderate CAD per 2014 cardiac cath-F/U DR PADMINI SMART Mild to moderate CAD (nonobstructive) per cardio records Carpal tunnel syndrome Dyspnea on effort Due to deconditioning per patient Gastroesophageal reflux disease Controlled History of Lyme disease 2014 Hypercholesterolemia Hypertension (BP during procedure 12/2019 went up to 265/156- case was cancelled and pt admitted to [facility]) -No significant issues noted with 01/2020 right shoulder surgery Lung collapse - 01/10/20 during procedure (right shoulder arthroscopy, RCR) at [facility] > was result of nerve block. Hospitalized for 3 days> Resolved (No mention of this in discharge summary- pt had dyspnea when laying flat after nerve block placed but CXR showed no issues with diaphragm). 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 "benign" Morbid obesity Stress incontinence Stroke "Stress induced" at age 39-NO ISSUES SINCE-SOME WEAKNESS RIGHT ARM REMAINS Type 2 diabetes mellitus NIDDM Surgical History H/O lateral meniscus repair of right knee History of cardiac cath 2014 ([facility])- no stents History of colonoscopy 2018 History of dental surgery tooth replacement but since rejected and removed History of tubal ligation Hx of umbilical hernia repair x2 S/P complete repair of rotator cuff Superior capsular reconstruction February 2020- and bicep Family History Father Hypertension Myocardial infarction Lung cancer Diabetes Heart disease Cancer Sister Multiple sclerosis Mother Ovarian cancer Diabetes Cancer Heart disease Stroke Denies family history of Prostate cancer Breast cancer Colorectal cancer Social History Smoking Status: Never smoker Second Hand Exposure: Yes (FATHER SMOKED); Hx Alcohol Use: No Hx Substance Use: No Preferred Language: Macedonian Communication Ability: Effective Visual Impairment: No Limitations Hearing Ability: Normal Power Project Manager Required: No Beliefs That Will Affect Care: None marital status: Current Living Situation: Spouse Current Living Situation Comment: [facility] current occupational status: retired How many Children do You have: 2 Feels Safe at Home: Yes Childhood Exposure to Second-Hand Smoke: Yes during the past year weight has: remained stable Dental Care, Regularly: No Physical Activity Frequency: Does not Exercise Seatbelt Use: always Sunscreen Use: Yes Assistive Devices: Denture - Upper Review of Systems 10 system review was performed and was negative except for pertinent positives and negatives as indicated in history of present illness Physical Exam Vital Signs Vital Signs - 24 hr 10/04/21 15:34 10/04/21 16:19 10/04/21 18:04 Temperature 36.7 C Temperature Source Temporal Artery Scan Pulse Rate 57 L Pulse Rate [Right Finger] 51 L 48 L Pulse Rhythm [Right Finger] Regular Pulse Strength [Right Finger] Normal Respiratory Rate 20 20 20 Respiratory Effort / Characteristics Labored Labored Respiratory Depth Normal Normal Respiratory Pattern Regular Blood Pressure [Right Arm] 216/108 H Blood Pressure Mean [Right Arm] 144 Pulse Oximetry 93 95 97 Oxygen Delivery Method Room Air Sepsis Recent Fever Within 48 Hours Yes Sepsis New/Unexplained Change in Mental Status No Sepsis Action Taken by Nursing No Action Required CONSTITUTIONAL: Morbidly obese female in moderate discomfort. HEENT: No scleral icterus or conjunctival injection/pallor. NECK: Full active range of motion without discomfort. LYMPHATICS: No cervical chain adenopathy. RESPIRATORY: Clear to auscultation bilaterally with no wheezing, crackles, rhonchi or stridor. Does have a mild nonproductive cough. CARDIOVASCULAR: Regular rate and rhythm with no murmurs, rubs or gallops. GASTROINTESTINAL: Bowel sounds present in all quadrants. Abdomen is protuberant and tender to palpation over the epigastric and right upper quadrant region. Negative McBurney's point tenderness. Negative CVA tenderness. No obvious rigidity, guarding or rebound. MUSCULOSKELETAL: Full range of motion of all joints without discomfort. INTEGUMENTARY: No rash or other significant dermatologic conditions noted. HEMATOLOGIC: No ecchymosis or petechiae. PSYCHIATRIC: Positive affect. NEUROLOGIC: No focal neurologic deficits noted. Course Course Patient history and physical exam were performed. Nurses notes were reviewed. Vital signs were reviewed and were normal. IV access was established, and labs were drawn. The patient was hydrated with a liter of normal saline, and administered IV morphine and Zofran for pain and nausea. Review of labs showed an elevated lipase of over 1500. AST was also elevated at 42, with normal ALT, total bilirubin and alkaline phosphatase. Portable chest x-ray did not show any evidence for lung consolidations, pneumothorax or cardiac prominence. Right upper quadrant ultrasound showed gallbladder sludge and stones without evidence for gallbladder wall thickening,, bile duct dilatation or obvious pancreatitis. Upon reevaluation, the patient reported that her pain was minimally improved. She also reported that she was starting to get some pain radiating into the central chest region as well. The patient was administered IV Dilaudid. An ECG was performed, showing a sinus bradycardia with first-degree AV block. When compared to a prior ECG of 01/10/2020, the patient does have an increased MI interval with QRS axis shift to the right. Patient also had an elevated ice attempt a troponin. I initially discussed the case with Dr. Mary, general surgeon on-call, who indicated that he would perform cholecystectomy, but has recommended GI evaluat ion first as she may have passed one of her gallstones, resulting in choledocholithiasis. The case was further discussed with the hospitalist service (Dr. Medrano). Dr. Medrano indicated that they would order an MRCP. I did advise the hospitalist service of the patient's abnormal ECG and elevated t roponin level as well. The patient did report improvement of her pain with the additional IV Dilaudid, and had good nausea control. Administered Medications Discontinued Medications Amlodipine Besylate (Amlodipine Besylate 5 Mg Tab) 5 mg PO NOW ONE Stop: 10/04/21 18:41 Last Admin: 10/04/21 18:58 Dose: 5 mg Documented by: [id number] Hydromorphone HCl (Hydromorphone Inj 0.5 Mg/0.5 Ml Syr) 0.5 mg IV NOW STA Stop: 10/04/21 16:52 Last Admin: 10/04/21 16:55 Dose: 0.5 mg Documented by: [id number] Sodium Chloride (Nss 1000ml) 1,000 mls @ 999 mls/hr IV .Q1H1M STA Stop: 10/04/21 16:54 Last Infusion: 10/04/21 17:21 Dose: 0 mls/hr Documented by: [id number] Admin: 10/04/21 16:08 Dose: 999 mls/hr Documented by: [id number] Morphine Sulfate (Morphine Sulfate 4 Mg/Ml 1 Ml Carp\\Vial) 6 mg IV NOW STA Stop: 10/04/21 15:55 Last Admin: 10/04/21 16:11 Dose: 6 mg Documented by: [id number] Ondansetron HCl (Ondansetron Inj 2 Mg/Ml 2 Ml Vial) 4 mg IV NOW STA Stop: 10/04/21 15:55 Last Admin: 10/04/21 16:08 Dose: 4 mg Documented by: [id number] Medical Decision Making Medical Records Attestation: I reviewed the patient's medical records. Home Medications Current Medication List: was personally reviewed by me Laboratory Data Attestation: I reviewed the patient's lab results. Result diagrams: 10/04/21 16:10 10/04/21 17:17 Lab Results 10/04/21 10/04/21 10/04/21 Range/Units 16:10 16:10 17:17 WBC 4.81 (4.8-10.8) K/uL RBC 4.82 (4.2-5.4) M/uL Hgb 14.0 (12.0-16.0) g/dL Hct 42.0 (37-47) % MCV 87.1 (80-100) fL MCH 29.0 (25-34) pg MCHC 33.3 (32-36) g/dL RDW Std Deviation 44.0 (36.4-46.3) fL RDW Coeff of Jonas 13.7 (11.5-14.5) % Plt Count 180 (130-400) K/uL MPV 10.0 (7.4-10.4) fL Immature Gran % (Auto) 0.2 % Neut % (Auto) 59.1 % Lymph % (Auto) 34.1 % [place] % (Auto) 5.6 % Eos % (Auto) 0.8 % Baso % (Auto) 0.2 % Neut # (Auto) 2.84 (1.4-6.5) K/uL Lymph # (Auto) 1.64 (1.2-3.4) K/uL [place] # (Auto) 0.27 (0.11-0.59) K/uL Eos # (Auto) 0.04 (0-0.5) K/uL Baso # (Auto) 0.01 (0-0.2) K/uL Immature Gran # (Auto) 0.01 (0.00-0.02) K/uL Sodium 136 (136-145) mmol/L Potassium TNP 3.7 Chloride 102 (98-107) mmol/L Carbon Dioxide 22 (21-32) mmol/L Anion Gap 12 H (3-11) BUN 10 (6-23) mg/dl Creatinine 0.58 L (0.6-1.2) mg/dl Est Cr Clr Drug Dosing 127.7 ml/min Est GFR ( Amer) 111.3 ml/min Est GFR (Non-Af Amer) 96.1 ml/min BUN/Creatinine Ratio 17.2 (10-20) Glucose 122 H (70-99(Fasting)) mg/dl Calcium 9.5 (8.5-10.1) mg/dl Total Bilirubin 0.6 (0.2-1.0) mg/dl AST TNP 42 H ALT 49 (7-52) U/L Alkaline Phosphatase 43 (34-104) U/L Troponin I High Sens 52.8 H* (0-14) pg/ml Total Protein 8.0 (6.0-8.3) gm/dl Albumin 4.3 (3.4-5.0) gm/dl Globulin 3.7 (2.5-4.0) gm/dl Albumin/Globulin Ratio 1.2 (0.9-2) Lipase 1501 H (11-82) U/L Imaging Data Attestation: I personally reviewed and interpreted this imaging study as follows: My Impression: My interpretation of a portable chest x-ray does not show any consolidations or pneumothorax. Right upper quadrant ultrasound shows gallbladder sludge and gallstones without evidence for acute cholecystitis or pancreatitis. Radiologist reports were also reviewed. Radiologist's Impression: Chest X-Ray 10/04/21 15:54 XR chest 1V portable HISTORY: Cough - COVID positive COMPARISON: Chest 01/10/2020. FINDINGS: No pneumothorax or no pleural effusions. The cardiac silhouette is mildly enlarged. No evidence for pulmonary edema. No focal lung consolidations to suggest pneumonia. No evidence for pulmonary edema. Slight prominence of interstitial markings, unchanged. This is likely chronic. IMPRESSION: No significant change compared to the prior study. No acute process. ACT 112: Negative or not required by law. Electronically signed by: Cesar Acevedo M.D. 10/04/2021 4:25 PM Gallbladder Ultrasound 10/04/21 15:54 ABDOMINAL ULTRASOUND, RIGHT UPPER QUADRANT HISTORY: RUQ pain - has gallstones/sludge. COMPARISON: Abdominal ultrasound 09/07/2021. FINDINGS: Pancreas: The pancreatic head and tail are obscured by overlying bowel gas. The remaining portions of the pancreas are within normal limits. Liver: The liver is echogenic consistent with fatty change. 22 cm in length. Gallbladder: Small stones and sludge again noted within the gallbladder. No gallbladder wall thickening. Negative sonographic Sanchez sign. CBD: 7 mm, unchanged. Right kidney: No hydronephrosis. IMPRESSION: 1. A few small stones and sludge within the gallbladder. No gallbladder wall thickening. 2. Hepatomegaly demonstrating fatty change. ACT 112: Negative or not required by law. Electronically signed by: Cesar Acevedo M.D. 10/04/2021 4:48 PM ECG Data Attestation: I personally reviewed and interpreted this ECG as follows: Indication: + abdominal pain, + chest pain, + diaphoresis and + nausea Rate (beats per minute): 50 Rhythm: + sinus bradycardia ECG Intervals/blocks: + First degree AV block Comparison ECG Date: from (01/10/2020) Change: the following changes noted (Increase MI length with rightward shift of the QRS axis) Blood Pressure Blood Pressure Findings: Elevated blood pressure Blood Pressure Disposition: elevated BP felt to be situational MDM Narrative Patient presents emergency department with complaint of increasing epigastric/right upper quadrant pain likely due to biliary colic. Laboratory and ultrasound studies today are not suggestive of acute cholecystitis. The patient does have an elevated lipase level, concerning for recently passed a gallstone. I did discuss the case with our general surgeon who recommended GI consultation and/or MRCP for further evaluation. They have indicated that they would perform cholecystectomy prior to discharge. When the patient reported increasing epigastric pain radiating into the chest, I did perform additional cardiac work-up, showing an abnormal ECG and elevated troponin. This information was relayed to the hospitalist service. The patient does have history of coronary artery disease and diabetes. Impression & Plan Gallstones, Elevated troponin level, Acute pancreatitis, Biliary colic Discharge Plan Visit Data Chief Complaint: Abdominal Pain Stated Complaint: ABD PAIN SEVERE GALLBLADDER SX CX D/T COVID+FRI ED Provider: Colby Gonzalez ED Midlevel Provider: Kurt Riojas Discharge Problem: Gallstones, Elevated troponin level, Acute pancreatitis, Biliary colic Patient Disposition: Still a Patient Discharge Instructions Activity Restrictions/Additional Instructions: Please come to the emergency department for further reevaluation of your condition. Forms Stand Alone Forms: My [facility] Prescriptions Prescriptions: No Action fluticasone propionate [Flonase Allergy Relief] 50 mcg/actuation spray,suspension 2 sprays INTNAS DAILY PRN (Reason: nasal congestion) Qty: 54.6 RF: 2 clemastine 2.68 mg tablet 2.68 mg PO BID PRN (Reason: allergy symptoms) Qty: 180 RF: 1 furosemide 20 mg tablet 20 mg PO QAM Qty: 90 RF: 1 valsartan [Diovan] 80 mg tablet 80 mg PO BID Qty: 180 RF: 1 omeprazole 40 mg capsule,delayed release(DR/EC) 40 mg PO QAM Qty: 90 RF: 1 tolterodine 4 mg capsule,extended release 24hr 4 mg PO QAM Qty: 90 RF: 1 clonidine HCl 0.1 mg tablet 0.1 mg PO BID Qty: 180 RF: 1 amlodipine [Norvasc] 5 mg tablet 5 mg PO QAM Qty: 90 RF: 1 aspirin [Adult Low Dose Aspirin] 81 mg tablet,delayed release (DR/EC) 81 mg PO QAM RF: 0 metformin 1,000 mg tablet extended release 24hr 1,000 mg PO BID Qty: 60 RF: 3 Paxlovid (EUA) 150 mg x 2- 100 mg tablet See Rx Instructions PO .COMPLEX Qty: 30 RF: 0 benzonatate 100 mg capsule 100 mg PO TID PRN (Reason: cough) Qty: 30 RF: 0 acetaminophen [Tylenol] 325 mg Capsule 325 mg PO Q4H PRN (Reason: pain) RF: 0 atorvastatin 80 mg tablet 80 mg PO HS RF: 0 potassium chloride 10 mEq tablet extended release 10 meq PO QAM RF: 0 fenofibrate nanocrystallized 145 mg tablet 145 mg PO DAILY RF: 0 Referrals Referrals: Gonzalo Torres, [Primary Care Provider] -
--- NOTE | 2021-10-04 16:50 | Ultrasound Report ---
ABDOMINAL ULTRASOUND, RIGHT UPPER QUADRANT HISTORY: RUQ pain - has gallstones/sludge. COMPARISON: Abdominal ultrasound 09/07/2021. FINDINGS: Pancreas: The pancreatic head and tail are obscured by overlying bowel gas. The remaining portions of the pancreas are within normal limits. Liver: The liver is echogenic consistent with fatty change. 22 cm in length. Gallbladder: Small stones and sludge again noted within the gallbladder. No gallbladder wall thickeni ng. Negative sonographic Sanchez sign. CBD: 7 mm, unchanged. Right kidney: No hydronephrosis. IMPRESSION: 1. A few small stones and sludge within the gallbladder. No gallbladder wall thickening. 2. Hepatomegaly demonstrating fatty change. ACT 112: Negative or not required by law. Electronically signed by: Cesar Acevedo M.D. 10/04/2021 4:48 PM
[2021-10-04] MEDS ORDERED: HYDROmorphone INJ 0.5 MG/0.5 ML SYR IV STA ×2 (16:51→19:06)
[2021-10-04 16:54] LABS: Alanine Aminotransferase 49 U/L (7-52); Albumin Globulin Ratio 1.2 (0.9-2); Albumin Level 4.3 gm/dl (3.4-5.0); Alkaline Phosphatase 43 U/L (34-104); Anion Gap 12 (3-11); BUN Creatinine Ratio 17.2 (10-20); Bilirubin,Total 0.6 mg/dl (0.2-1.0); Blood Urea Nitrogen 10 mg/dl (6-23); Calcium 9.5 mg/dl (8.5-10.1); Carbon Dioxide 22 mmol/L (21-32); Chloride 102 mmol/L (98-107); Creatinine Clr Calc Pharmacy 127.7 ml/min; Est GFR (African American) 111.3 ml/min; Est GFR (Non-African American) 96.1 ml/min; Globulin 3.7 gm/dl (2.5-4.0); Glucose 122 mg/dl (70-99(Fasting)); Lipase 1501 U/L (11-82); Sodium 136 mmol/L (136-145)
[2021-10-04] MEDS ORDERED: LACTATED RINGER'S 1,000 ML IV ONE (17:30)
--- NOTE | 2021-10-04 17:32 | History & Physical Report ---
Date of Service October 04, 2021 Assessment & Plan (1) Pancreatitis: Plan: - With lipase 1501, pain characteristic of pancreatitis. - 1L IVF bolus x2 in ED, with LRs 250 cc/hr overnight. - Pain control IV Tylenol, Dilaudid. - NPO. - Known GB disease, order MRCP to evaluate for GB related cause. If positive, would need ERCP once pancreatitis adequately treated. If negative, would recommend stopping Paxlovid (covid antiviral), as per my research, pancreatitis is a possible side effect of the medication. Holding this medication for now. - GI and general surgery consult placed. (2) Hypertensive urgency: Plan: - Initial BP in ED reported at 216/108, recheck 173/81. Patient only took her valsartan this morning. Will order amlodipine 5 mg now. We will get remainder of BP meds this evening. Also reporting pain, will give 0.5 mg Dilaudid as she is due for this, see if this helps. - BP meds include amlodipine 5 mg daily, clonidine 0.1 mg twice daily, and valsartan 80 mg twice daily. - History of hypertensive urgency in 2019 prior to shoulder surgery. (3) Elevated troponin: Plan: - Initial troponin 52.8, repeat 2 hours later 49.8. in the setting of hypertension, COVID infection. - On telemetry bed. - New EKG, troponin with any new chest pain. (4) COVID-19: Plan: - Day #6 of symptoms. Started Paxlovid on Tuesday. - Isolation precautions. Tylenol, Mucinex, albuterol as needed for symptom management. (5) Hypertension: Plan: - Continue amlodipine, clonidine, valsartan. (6) Type 2 diabetes mellitus: Plan: - On metformin at home we will rule hold this. - Accu-Cheks ACHS or every 6 while n.p.o., sliding scale insulin for now. - A1c in AM. - Diabetic/heart healthy diet when tolerating p.o. intake. (7) Gastroesophageal reflux disease: Plan: - Continue PPI. (8) Hypercholesterolemia: Plan: - Continue atorvastatin 80 mg, Tricor 145 mg daily. (9) CAD (coronary artery disease): Plan: - Cardiac cath 02/07/15: 30% early mid and 10-20% mid and distal LAD. 50-60% ostial diagonal. 10-20% ostial and 30% mid LCx. 30% ostial and prox OM. 20% ostial and prox and 10-20% mid and distal RCA. 0-10% PDA. - Echo 12/2019: normal biventricular systolic function, mild LVH, grade 1 LV diastolic dysfunction, LV ejection fraction 65-70%, mild left atrial dilatation, no significant valvular abnormalities. - Follows with Dr. Smart. Seen in our office earlier this month for clearance for lap benito. - Continue statin, Tricor, BP meds, ASA. (10) Chronic edema: Plan: - Chronic bilateral lower extremity edema has been present for years, today is at her baseline. No calf pain, unilateral swelling. - Does take Lasix. - Continue to monitor. Patient on amlodipine for BP, may be contributing to the chronic edema. Plan: - Med/surg w/ telemetry while trending troponins. - SCDs, Lovenox for DVT ppx. - Full Code. History of Present Illness Primary Care Provider: Gonzalo Torres DO Mrs. Loredo is a 66 y/o female with PMH significant for CAD, hypertension, hyperlipidemia, diabetes, GERD, and diagnosed with COVID 19 infection 2 days ago, 10/02 who presents today with abdominal pain since this morning. Patient had cereal and coffee for breakfast and about an hour later began to experience abdominal pain that started centrally and radiates throughout. She is also very nauseous, but has not vomited. She has a history of right upper quadrant pain, was to undergo laparoscopic cholecystectomy tomorrow, 10/05 however she tested positive on a preoperative COVID test , 10/01. Patient did began experiencing symptoms on Tuesday of this past week, noting sinus congestion, headache, cough, and diffuse body aches and mild shortness of breath. She received her initial Pfizer 2 dose series vaccine, first in July 2021 and second last month in August. In ED, she is hypertensive 216/108, heart rate 48, afebrile and SPO2 greater than 95% on room air. Labs significant for lipase 1501, HS troponin 52.8, repeat 49.8. AST 42, glucose 122. CXR without evidence of pneumonia, edema, or effusions. Gallbladder ultrasound showed a few small stones and sludge within the gallbladder as well as hepatomegaly demonstrating fatty change. Patient received 1L NSS, Zofran, morphine, Dilaudid in ED and hospitalist service consulted for further evaluation and admission. Allergies Allergy/AdvReac Type Severity Reaction Status Date / Time Sulfa (Sulfonamide Allergy Intermediate Hives Verified 10/15/21 05:58 Antibiotics) cortisone AdvReac Intermediate Hypertensio Verified 10/15/21 05:58 n prednisone AdvReac Intermediate Elevated BP Verified 10/15/21 05:58 Home Medications Medication Instructions Recorded Confirmed Type aspirin 81 mg tablet,delayed 81 mg PO QAM 11/17/18 10/15/21 History release (Adult Low Dose Aspirin) fluticasone propionate 50 2 sprays INTNAS DAILY PRN #54.6 ml 10/24/19 10/15/21 Rx mcg/actuation nasal spray,suspension (Flonase Allergy Relief) clemastine 2.68 mg tablet 2.68 mg PO BID PRN #180 tab 02/16/21 10/15/21 Rx furosemide 20 mg tablet 20 mg PO QAM #90 tab 03/24/21 10/15/21 Rx valsartan 80 mg tablet (Diovan) 80 mg PO BID #180 tab 04/27/21 10/15/21 Rx omeprazole 40 mg capsule,delayed 40 mg PO QAM #90 cap 05/27/21 10/15/21 Rx release tolterodine 4 mg capsule,extended 4 mg PO QAM #90 cap 06/25/21 10/15/21 Rx release 24 hr clonidine HCl 0.1 mg tablet 0.1 mg PO BID #180 tab 08/03/21 10/15/21 Rx metformin 1,000 mg tablet,extended 1,000 mg PO BID #60 tab 08/31/21 10/15/21 Rx release 24hr amlodipine 5 mg tablet (Norvasc) 5 mg PO QAM #90 tab 09/15/21 10/15/21 Rx atorvastatin 80 mg tablet 80 mg PO HS 09/24/21 10/15/21 History benzonatate 100 mg capsule 100 mg PO TID PRN #30 cap 10/02/21 10/15/21 Rx fenofibrate nanocrystallized 145 145 mg PO DAILY 10/04/21 10/15/21 History mg tablet potassium chloride 10 mEq 10 meq PO QAM 10/04/21 10/15/21 History tablet,extended release acetaminophen 325 mg capsule 650 mg PO Q4H PRN #0 cap 10/09/21 10/15/21 Rx (Tylenol) hydrocodone 5 mg-acetaminophen 325 1 tab PO Q4H PRN #30 tab 10/15/21 Rx mg tablet ondansetron HCl 4 mg tablet 4 mg PO Q6H PRN #10 tab 10/15/21 Rx amoxicillin 875 mg-potassium 1 tab PO BID #10 tab 10/16/21 Rx clavulanate 125 mg tablet rivaroxaban 10 mg tablet (Xarelto) 10 mg PO DAILY #30 tab 10/16/21 Rx Past Med/Surg History Medical History (Updated 10/15/21 @ 15:38 by Renee Lisa PA-C) CAD (coronary artery disease) Moderate CAD per 2015 cardiac cath-F/U DR PADMINI SMART Mild to moderate CAD (nonobstructive) per cardio records Carpal tunnel syndrome COVID-19 Dyspnea on effort Due to deconditioning per patient Gastroesophageal reflux disease Controlled History of Lyme disease 2014 Hypercholesterolemia Hypertension (BP during procedure 12/2019 went up to 265/156- case was cancelled and pt admitted to [facility]) -No significant issues noted with 01/2020 right shoulder surgery Lung collapse - 01/10/20 during procedure (right shoulder arthroscopy, RCR) at [facility] > was result of nerve block. Hospitalized for 3 days> Resolved (No mention of this in discharge summary- pt had dyspnea when laying flat after nerve block placed but CXR showed no issues with diaphragm). 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 Dr. Morris Hx of umbilical hernia repair x2 S/P complete repair of rotator cuff Superior capsular reconstruction February 2020- and bicep Family History Father Hypertension Myocardial infarction Lung cancer Diabetes Heart disease Cancer Sister Multiple sclerosis Mother Ovarian cancer Diabetes Cancer Heart disease Stroke Denies family history of Prostate cancer Breast cancer Colorectal cancer Social History Smoking Status: Never smoker Second Hand Exposure: Yes (FATHER SMOKED); Hx Alcohol Use: No Hx Substance Use: No Preferred Language: Romanian Communication Ability: Effective Visual Impairment: No Limitations Hearing Ability: Normal Civil Lawyer Required: No Beliefs That Will Affect Care: None marital status: Current Living Situation: Spouse Current Living Situation Comment: [facility] current occupational status: retired How many Children do You have: 2 Feels Safe at Home: Yes Childhood Exposure to Second-Hand Smoke: Yes during the past year weight has: remained stable Dental Care, Regularly: No Physical Activity Frequency: Does not Exercise Seatbelt Use: always Sunscreen Use: Yes Assistive Devices: None Review of Systems Review of Systems: Constitutional: body aches, general fatigue; no fever/chills, weakness, anorexia, night sweats Eyes: No diplopia, no worsening or blurred vision ENT: normal hearing, no trouble swallowing Respiratory: cough with sputum, congestion, minimal dyspnea on exertion x1 week Cardiovascular: No chest pain, tightness or palpitations Abdomen: diffuse abdominal pain with nausea; no vomiting, diarrhea or constipation : Denies dysuria, hematuria, increased urgency/frequency, urinary retention Musculoskeletal: No joint pain, calf pain, swelling Neurologic: No weakness, numbness/tingling, or balance problems Psychiatric: No anxiety or depression Skin: No rash or itch Physical Exam Physical Exam: General: awake, alert, appears generally uncomfortable but no acute distress Head: Normocephalic, atraumatic ENT: PERRL, EOMI, no pharyngeal exudate, mucous membranes moist Chest: Clear to auscultation, on room air, no adventitious breath sounds Cardiac: Regular rate and rhythm, no murmur, no JVD, normal peripheral pulses, good capillary refill Abdominal: diffuse abdominal pain; NABS x 4 quadrants, soft, no rebound, guarding or tenderness Extremities: b/l LE edema, consistent with pt reportr of chronic LE edema; otherwise normal inspection, no erythema, calfs nontender to palpation Psych: Normal mood and affect Neuro: AAO x 3, strength intact bilaterally and rated 5/5, no motor deficits, speech is clear, no peripheral sensory deficits Skin: no rash or erythema Results & Data Results & Data ([facility]) Vital Signs (Past 12 Hours) Vital Signs Temp Pulse Pulse Resp Pulse Ox 10/04/21 16:19 51 L 20 95 10/04/21 15:34 36.7 C 57 L 20 93 Laboratory Results Abnormal lab results 10/04/21 10/04/21 Range/Units 16:10 17:17 Anion Gap 12 H (3-11) Creatinine 0.58 L (0.6-1.2) mg/dl Glucose 122 H (70-99(Fasting)) mg/dl AST 42 H (13-39) U/L Troponin I High Sens 52.8 H* (0-14) pg/ml Lipase 1501 H (11-82) U/L Diagnostic Findings Chest X-Ray 10/04/21 15:54 XR chest 1V portable HISTORY: Cough - COVID positive COMPARISON: Chest 01/10/2020. FINDINGS: No pneumothorax or no pleural effusions. The cardiac silhouette is mildly enlarged. No evidence for pulmonary edema. No focal lung consolidations to suggest pneumonia. No evidence for pulmonary edema. Slight prominence of interstitial markings, unchanged. This is likely chronic. IMPRESSION: No significant change compared to the prior study. No acute process. ACT 112: Negative or not required by law. Electronically signed by: Cesar Acevedo M.D. 10/04/2021 4:25 PM Gallbladder Ultrasound 10/04/21 15:54 ABDOMINAL ULTRASOUND, RIGHT UPPER QUADRANT HISTORY: RUQ pain - has gallstones/sludge. COMPARISON: Abdominal ultrasound 09/07/2021. FINDINGS: Pancreas: The pancreatic head and tail are obscured by overlying bowel gas. The remaining portions of the pancreas are within normal limits. Liver: The liver is echogenic consistent with fatty change. 22 cm in length. Gallbladder: Small stones and sludge again noted within the gallbladder. No gallbladder wall thickening. Negative sonographic Sanchez sign. CBD: 7 mm, unchanged. Right kidney: No hydronephrosis. IMPRESSION: 1. A few small stones and sludge within the gallbladder. No gallbladder wall thickening. 2. Hepatomegaly demonstrating fatty change. ACT 112: Negative or not required by law. Electronically signed by: Cesar Acevedo M.D. 10/04/2021 4:48 PM ECG Additional Comments: Sinus bradycardia with 1st degree A-V block with occasional Premature ventricular complexes and Premature atrial complexes ST & T wave abnormality, consider lateral ischemia Abnormal ECG When compared with ECG of 10-JAN-2020 13:50, Premature ventricular complexes are now Present AK interval has increased QRS axis Shifted right Minimal criteria for Anterior infarct are no longer Present. Code Status & VTE Plan Code Status Full code. Supervising Physician Co-Signing Physician Notes I personally saw and examined the patient. I verified all sy points and agree with Renee Lisa PA-C with the following exceptions and/or additions: 66 year old female admission for pancreatitis with epigastric pain. Known gallstones however LFTs WNL and no biliary ductal dilatation to suggest this is the cause. MRCP pending. O/E HS1+2, no murmurs, Chest CTAB, Abdo epigastric pain with guarding but no rebound tenderness. A/P Acute pancreatitis - if MRCP negative, suspect Paxlovid, no alcohol use, triglycerides 193 in Feb 2021, aggressive initial fluid resuscitation but can likely cut back on LR or stop tomorrow depending on clinical course. PG Care Time/CCT Total # of Minutes Spent Total Time Spent with Patient: Total time spent is greater than 50% in coordination of care (as documented) at patient's floor/unit and/or counseling patient: Coding Level of Care Code 11090 Initial Inpt Care Lvl 3 Diagnoses Hypertensive urgency I16.0 Pancreatitis K85.90 Elevated troponin R77.8 COVID-19 U07.1 Hypertension I10 Type 2 diabetes mellitus E11.9 Gastroesophageal reflux disease K21.9 Hypercholesterolemia E78.00 CAD (coronary artery disease) I25.10 Chronic edema R60.9
[2021-10-04 17:51] LABS: Potassium 3.7 mmol/L (3.5-5.1)
[2021-10-04 18:19] LABS: Troponin I High Sensitivity 52.8 pg/ml (0-14)
[2021-10-04] MEDS ORDERED: amLODIPine BESYLATE 5 MG TAB PO ONE (18:40)
[2021-10-04] MEDS ORDERED: GLUCOSE 10 TABS/TUBE PO PRN (21:59)
[2021-10-04] MEDS ORDERED: ACETAMINOPHEN 1,000 MG/100 ML VIAL IV PRN (21:59)
[2021-10-04] MEDS ORDERED: DEXTROSE 50% 50 ML SYRINGE IV PRN (21:59)
[2021-10-04] MEDS ORDERED: CARBOHYDRATES FOR HYPOGLYCEMIA PO PRN (21:59)
[2021-10-04] MEDS ORDERED: GLUCOSE 40% GEL 15 GM TUBE PO PRN (21:59)
[2021-10-04] MEDS ORDERED: GLUCAGON FOR INJ 1 MG VIAL SQ PRN (21:59)
[2021-10-04] MEDS ORDERED: ALBUTEROL 0.083% NEBU SOLN 3 ML VIAL INH PRN (21:59)
[2021-10-04] MEDS ORDERED: CLEMASTINE PO PRN (21:59)
[2021-10-04 22:30] LABS: Appearance Urine Clear (Clear); Bacteria Urine Automated 1+ (Negative); Bilirubin Urine Negative (Negative); Blood Urine Negative (Negative); Color Urine Yellow; Epithelial Cell Urine Auto 20-30 /lpf (0-5); Glucose Urine UA 1+ (Negative); Ketones Urine Negative (Negative); Leukocyte Esterase Urine Negative (Negative); Nitrite Urine Negative (Negative); Protein Urine 2+ (Negative); RBC Urine Automated 0-4 /hpf (0-4); Specific Gravity Urine 1.014 (1.000-1.030); Urobilinogen Urine Negative (Negative)
[2021-10-04] MEDS: HYDROmorphone INJ 0.5 MG/0.5 ML SYR IV PRN (22:31)
[2021-10-04] MEDS: ONDANSETRON INJ 2 MG/ML 2 ML VIAL IV PRN (22:31)
[2021-10-04] MEDS: LACTATED RINGER'S 1,000 ML IV SCH (22:41)
--- NOTE | 2021-10-04 22:57 | Surgery Consultation ---
Date of Consultation October 04, 2021 Assessment & Plan (1) Pancreatitis: Patient has been admitted on the hospitalist service. We recommend proceeding as follows: Due to her pancreatitis n.p.o. status should be implemented which has been done Hydration measures with IV fluids should be employed which is being pursued An MRCP has been ordered to evaluate further if patient's pancreatitis is caused from gallbladder disease/choledocholithiasis The possibility that patient's COVID antiviral is causing pancreatitis is being entertained and the medication is being held for the present time GI consultation has been requested Analgesics to be provided Antiemetics will be provided Follow serial labs The determination of when patient can safely undergo cholecystectomy will be determined by several factors including resolution of her pancreatitis, results of MRCP and recommendations from gastroenterology, resolution of her COVID-19 infection , as well as the recommendations from medical team regarding patient's hypertensive urgency and elevated troponin. We will continue following while she is hospitalized Supervising Physician Co-Signing Physician Notes Dr. Morrispatient with a telehealth visit complaining of some epigastric and right upper quadrant pain Presenting the emergency room with findings of mildly elevated lipase consistent with mild pancreatitis Ultrasound shows a distended gallbladder with stones and sludge and mild thickening with common bile duct of 7 mm Recent diagnosis on 10/01/2021 of COVID with some symptoms including cough MRCP has been done but has not been officially read-GI consult is pending She has a mildly elevated troponin which could be from her acute illness I do not think she has severe acute cholecystitis however normally in this situation we would proceed with laparoscopic cholecystectomy Will await MRCP reading, GI consultation and then have to evaluate her medical condition regarding the troponin and her COVID Symptoms and how they may affect her surgical recovery History of Present Illness Reason for Consultation: Abdominal pain Attending Physician: Tung Medrano MD History of Present Illness This is a 66-year-old female who is known to the [facility] general surgery department. The patient was seen as an outpatient by Dr. Morris on 09/18/2021 secondary to intermittent right upper quadrant pain. Patient did undergo a gallbladder ultrasound on 09/07/2021 that showed gallbladder sludge and stones but no evidence otherwise of acute cholecystitis. Because the patient had a known history of cardiovascular disease she was referred to her mail carrier who she saw on 09/23/2021. During that visit the patient was felt to be stable and asymptomatic from a cardiovascular standpoint and did not have any evidence of unstable angina or decompensated CHF. It was felt the patient was an acceptable risk to proceed with an elective cholecystectomy. The patient reports that her cholecystectomy is tentatively planned for 10/05/[address] Morris the patient was recently diagnosed with COVID-19 and therefore her surgery was postponed. Patient notes that she was diagnosed with COVID on 10/01/2021. She notes that she had symptoms including headache and generalized myalgias and body aches. In addition she had a cough and upper respiratory congestion. Patient received care from her primary care physician where patient was placed on Paxlovid. The patient ultimately presented to the emergency department this evening on 10/04/2021 as she developed abdominal pain greatest in the epigastric area approximately 1 hour after eating breakfast. The patient notes that her pain does not really radiate. With her pain she has associated nausea and vomiting. She denies any diarrhea. She denies any fevers, shakes, or chills. Today in the emergency department the patient did have labs and imaging which I independent reviewed. A chest x-ray showed no evidence of pneumonia. She did undergo gallbladder ultrasound that showed patient had some small gallstones as well as sludge within the gallbladder with no evidence of gallbladder wall thickening. Labs include a CBC her white blood cell count, hemoglobin, hematocrit, and platelet count were all normal. Chemistry profile showed sodium and potassium both normal. BUN was normal and creatinine was low at 0.5. Total bilirubin was within the normal range. Her AST was slightly elevated at 42. ALT and alkaline phosphatase were nonelevated. Lipase was elevated at 1501. Urinalysis showed 1+ bacteria but was otherwise not indicative of infection. Troponin levels were checked on 2 occasions and were initially 52.8 and subsequently 49.8 approximately 2 hours later. At the time of my interview the patient was in no distress but she was having abdominal discomfort as well as nausea and vomiting Allergies Allergy/AdvReac Type Severity Reaction Status Date / Time Sulfa (Sulfonamide Allergy Intermediate Hives Verified 10/04/21 15:58 Antibiotics) cortisone AdvReac Intermediate Hypertensio Verified 10/04/21 15:58 n prednisone AdvReac Intermediate Elevated BP Verified 10/04/21 15:58 Home Medications Medication Instructions Recorded Confirmed Type aspirin 81 mg tablet,delayed 81 mg PO QAM 11/17/18 10/04/21 History release (Adult Low Dose Aspirin) fluticasone propionate 50 2 sprays INTNAS DAILY PRN #54.6 ml 10/24/19 10/04/21 Rx mcg/actuation nasal spray,suspension (Flonase Allergy Relief) acetaminophen 325 mg capsule 325 mg PO Q4H PRN 01/01/20 10/04/21 History (Tylenol) clemastine 2.68 mg tablet 2.68 mg PO BID PRN #180 tab 02/16/21 10/04/21 Rx furosemide 20 mg tablet 20 mg PO QAM #90 tab 03/24/21 10/04/21 Rx valsartan 80 mg tablet (Diovan) 80 mg PO BID #180 tab 04/27/21 10/04/21 Rx omeprazole 40 mg capsule,delayed 40 mg PO QAM #90 cap 05/27/21 10/04/21 Rx release tolterodine 4 mg capsule,extended 4 mg PO QAM #90 cap 06/25/21 10/04/21 Rx release 24 hr clonidine HCl 0.1 mg tablet 0.1 mg PO BID #180 tab 08/03/21 10/04/21 Rx metformin 1,000 mg tablet,extended 1,000 mg PO BID #60 tab 08/31/21 10/04/21 Rx release 24hr amlodipine 5 mg tablet (Norvasc) 5 mg PO QAM #90 tab 09/15/21 10/04/21 Rx atorvastatin 80 mg tablet 80 mg PO HS 09/24/21 10/04/21 History benzonatate 100 mg capsule 100 mg PO TID PRN #30 cap 10/02/21 10/04/21 Rx nirmatrelvir 300 mg (150 mg x See Rx Instructions PO .COMPLEX 10/02/21 10/04/21 Rx 2)-ritonavir 100 mg tablet (EUA) #30 tab (Paxlovid 300 mg () fenofibrate nanocrystallized 145 145 mg PO DAILY 10/04/21 10/04/21 History mg tablet potassium chloride 10 mEq 10 meq PO QAM 10/04/21 10/04/21 History tablet,extended release Patient History Medical History CAD (coronary artery disease) Moderate CAD per 2015 cardiac cath-F/U DR PADMINI SMART Mild to moderate CAD (nonobstructive) per cardio records Carpal tunnel syndrome Dyspnea on effort Due to deconditioning per patient Gastroesophageal reflux disease Controlled History of Lyme disease 2014 Hypercholesterolemia Hypertension (BP during procedure 12/2019 went up to 265/156- case was cancelled and pt admitted to [facility]) -No significant issues noted with 01/2020 right shoulder surgery Lung collapse - 01/10/20 during procedure (right shoulder arthroscopy, RCR) at [facility] > was result of nerve block. Hospitalized for 3 days> Resolved (No mention of this in discharge summary- pt had dyspnea when laying flat after nerve block placed but CXR showed no issues with diaphragm). 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 "benign" Morbid obesity Stress incontinence Stroke "Stress induced" at age 39-NO ISSUES SINCE-SOME WEAKNESS RIGHT ARM REMAINS Type 2 diabetes mellitus NIDDM Surgical History H/O lateral meniscus repair of right knee History of cardiac cath 2014 ([facility])- no stents History of colonoscopy 2018 History of dental surgery tooth replacement but since rejected and removed History of tubal ligation Hx of umbilical hernia repair x2 S/P complete repair of rotator cuff Superior capsular reconstruction February 2020- and bicep Family History Father Hypertension Myocardial infarction Lung cancer Diabetes Heart disease Cancer Sister Multiple sclerosis Mother Ovarian cancer Diabetes Cancer Heart disease Stroke Denies family history of Prostate cancer Breast cancer Colorectal cancer Social History Smoking Status: Never smoker Second Hand Exposure: Yes (FATHER SMOKED); Hx Alcohol Use: No Hx Substance Use: No Preferred Language: Peruvian Communication Ability: Effective Visual Impairment: No Limitations 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 Beliefs That Will Affect Care: None marital status: Current Living Situation: Spouse Current Living Situation Comment: [facility] current occupational status: retired How many Children do You have: 2 Feels Safe at Home: Yes Safety Concerns: Feels Safe At This Time Childhood Exposure to Second-Hand Smoke: Yes during the past year weight has: remained stable Dental Care, Regularly: No Physical Activity Frequency: Does not Exercise Seatbelt Use: always Sunscreen Use: Yes Assistive Devices: Denture - Upper Review of Systems Constitutional: + body aches and + fatigue; no fever and no chills Eyes: no eye pain Ear, Nose, Mouth, Throat: + nasal congestion; no ear pain Respiratory: + cough Cardiovascular: no chest pain Gastrointestinal: + abdominal pain, + nausea and + vomiting Genitourinary: no dysuria Musculoskeletal: no back pain Integumentary: no rash Neurologic: no localized weakness Physical Exam Constitutional: well developed and well nourished; + uncomfortable Eyes: no conjunctival abnormality ENMT: Ears: no hearing impairment and no external ear abnormality Mouth: no oropharynx abnormality Neck: trachea midline Respiratory: normal respiratory effort; no respiratory distress and no labored breathing Cardiovascular: Rate/Rhythm: regular rate and regular rhythm Gastrointestinal (Abdomen): Bowel sounds are hypoactive. Patient had pain with palpation in her abdomen greatest in the epigastric area. Musculoskeletal: No calf tenderness Skin: no rashes Neurologic: moves all extremities Psychiatric: A+Ox3, euthymic affect Results & Data ([facility]) Vital Signs (Past 12 Hours) Vital Signs Temp Pulse Pulse Resp BP Pulse Ox 10/04/21 22:03 36.5 C 55 L 18 153/78 H 92 10/04/21 20:19 47 L 18 191/100 H 96 10/04/21 18:04 48 L 20 216/108 H 97 10/04/21 16:19 51 L 20 95 10/04/21 15:34 36.7 C 57 L 20 93 PG Care Time/CCT Total # of Minutes Spent Total Time Spent with Patient: Total time spent is greater than 50% in coordination of care (as documented) at patient's floor/unit and/or counseling patient: Coding Level of Care Code 71115 Inpt Consult Level 5 Diagnoses Pancreatitis K85.90
[2021-10-04] MEDS: VALSARTAN 80 MG TAB PO SCH (23:03)
[2021-10-04] MEDS: ENOXAPARIN INJ 40 MG/0.4 ML SYR SQ SCH (23:04)
[2021-10-04] MEDS: ATORVASTATIN 40 MG TAB PO SCH (23:05)
[2021-10-04] MEDS: cloNIDine HCL 0.1 MG TAB PO SCH (23:05)
[2021-10-04] MEDS: INSULIN ASPART PER UNIT SC SCH (23:32)
[2021-10-04] MEDS ORDERED: PROMETHAZINE HCL 12.5 MG in SODIUM CHLORIDE 0.9% 50 ML IV STA (23:52)
[2021-10-05] MEDS: LACTATED RINGER'S 1,000 ML IV SCH ×6 (02:33→23:43)
[2021-10-05] MEDS: HYDROmorphone INJ 1 MG/ML SYRINGE IV PRN ×2 (02:40→19:46)
[2021-10-05] MEDS: BENZONATATE 100 MG CAPSULE PO PRN ×2 (02:40→08:01)
[2021-10-05] MEDS: HYDROmorphone INJ 0.5 MG/0.5 ML SYR IV PRN ×3 (06:28→13:08)
[2021-10-05] MEDS: INSULIN ASPART PER UNIT SC SCH ×4 (06:44→23:57)
[2021-10-05] MEDS: cloNIDine HCL 0.1 MG TAB PO SCH ×2 (08:01→20:00)
[2021-10-05] MEDS: ONDANSETRON INJ 2 MG/ML 2 ML VIAL IV PRN ×3 (08:01→19:46)
[2021-10-05] MEDS: POLYETHYLENE (MIRALAX) 17 GM PACK PO PRN (08:01)
[2021-10-05] MEDS: ENOXAPARIN INJ 40 MG/0.4 ML SYR SQ SCH ×2 (08:01→20:00)
[2021-10-05] MEDS: VALSARTAN 80 MG TAB PO SCH ×2 (08:01→20:01)
[2021-10-05] MEDS: FENOFIBRATE NANOCRYSTALLIZED 145 MG TABLET PO SCH (08:02)
[2021-10-05] MEDS: guaiFENesin 600 MG TABCR PO PRN (08:02)
[2021-10-05] MEDS: TOLTERODINE TARTRATE LA 4 MG CAPCR PO SCH (08:02)
[2021-10-05] MEDS: amLODIPine BESYLATE 5 MG TAB PO SCH (08:02)
[2021-10-05] MEDS: POTASSIUM CHLORIDE 10 MEQ TABCR PO SCH (08:03)
[2021-10-05] MEDS: ASPIRIN 81 MG ECTAB PO SCH (08:03)
[2021-10-05] MEDS: PANTOprazole 40 MG TAB PO SCH (08:03)
[2021-10-05] MEDS ORDERED: FUROSEMIDE 20 MG TAB PO SCH (09:00)
[2021-10-05 09:06] LABS: Eosinophils # (auto) 0.01 K/uL (0-0.5); Eosinophils % (auto) 0.2 %; Hemoglobin 12.8 g/dL (12.0-16.0); Immature Granulocytes # (auto) 0.01 K/uL (0.00-0.02); Immature Granulocytes % (auto) 0.2 %; Lymphocytes # (auto) 1.28 K/uL (1.2-3.4); Lymphocytes % (auto) 23.1 %; Mean Corpuscular Hemoglobin 28.9 pg (25-34); Mean Corpuscular Hgb Conc 32.8 g/dL (32-36); Mean Platelet Volume 10.2 fL (7.4-10.4); Monocytes % (auto) 5.4 %; Neutrophils # (auto) 3.95 K/uL (1.4-6.5); Neutrophils % (auto) 71.1 %; Platelet Count 170 K/uL (130-400); RDW Coefficient of Variation 13.8 % (11.5-14.5); RDW Standard Deviation 44.7 fL (36.4-46.3); Red Blood Count 4.43 M/uL (4.2-5.4); White Blood Count 5.55 K/uL (4.8-10.8)
--- NOTE | 2021-10-05 09:09 | Magnetic Resonance Report ---
MR MRCP HISTORY: 66 years-old Female suspected gallstone pancreatitis acute right upper quadrant abdominal p ain COMPARISON: Abdominal ultrasound 10/04/2021 TECHNIQUE: MRCP without the use of IV contrast was obtained according to institutional protocol FINDINGS: Cardiomegaly. The imaged lower chest is otherwise unremarkable. Patient body habitus limits the study . Degenerative changes of the spine. Hepatomegaly with hepatic steatosis. 2.0 cm T2 hyperintense focu s is noted within the fundal uterus. The gallbladder is distended with layering stones within the gal lbladder neck. No associated gallbladder wall thickening. The study is motion degraded. The common bi le duct measures up to 7 mm. Focal narrowing of the common bile duct is noted on image 13 series 6. N o choledocholithiasis. Interstitial and peripancreatic edema with small volume of free fluid within t he lesser sac. No pancreatic ductal dilation. Unremarkable soft tissues. No bowel dilation. IMPRESSION: 1. Acute pancreatitis. No associated pancreatic ductal dilation. 2. Distended gallbladder with cholelithiasis. No definitive evidence of acute cholecystitis. 3. No choledocholithiasis identified. There is focal narrowing within the distal common bile duct whi ch is likely secondary to the edematous duodenum or pancreas. An underlying lesion is considered less likely. ACT 112: Negative or not required by law. The above report was generated using voice recognition software. It may contain grammatical, syntax o r spelling errors. Electronically signed by: Yaya Ho M.D. 10/05/2021 9:07 AM
[2021-10-05 09:12] LABS: Estimated Average Glucose 192 mg/dl; Hemoglobin A1C 8.3 % (4.5-5.6)
--- NOTE | 2021-10-05 09:18 | Communication Note ---
Date of Service: October 05, 2021 Patient is a 66 yo female with PMH of CAD, HTN, HLD, GERD, DM2, and currently hospitalized with COVID19 infection and pancreatitis. She developed abdominal pain. An abdominal US indicated stones & sludge in the gallbladder. Lipase 1501. MRCP shows acute pancreatitis, cholelithiasis, but no concern for choledocholithiasis. She reportedly has experienced nausea without vomiting. She was arranged to have a lap benito on 10/05, however she tested positive on pre- operative COVID test on 10/01. She has sinus congestion, headache, cough, body aches, & SOB. WBC count within normal limits. No pertinent family history. Patient is being managed with supportive care with fluids & pain control at the present time. General surgery is involved. Assessment: -Gallstone Pancreatitis Plan: -MRCP shows no evidence of choledocholithiasis. Patient is COVID19+. Would continue with NPO status, IV fluid hydration, and pain control. Decisions regarding timing for cholecystectomy per general surgery. MRCP does not show acute choledocholithiasis. If clinical situation changes/ERCP becomes necessary, would need to consult [facility]. Agree with ALYSSA Carmichael as above
[2021-10-05 09:30] LABS: Calcium 8.6 mg/dl (8.5-10.1); Creatinine Clr Calc Pharmacy 158.4 ml/min; Est GFR (African American) 119.3 ml/min; Est GFR (Non-African American) 102.9 ml/min; Potassium 3.6 mmol/L (3.5-5.1)
[2021-10-05 09:32] LABS: Albumin Globulin Ratio 1.2 (0.9-2); Albumin Level 3.7 gm/dl (3.4-5.0); Bilirubin,Total 0.5 mg/dl (0.2-1.0); Total Protein 6.7 gm/dl (6.0-8.3)
--- NOTE | 2021-10-05 11:13 | Electrocardiogram Report ---
Test Reason : Blood Pressure : / mmHG Vent. Rate : 050 BPM Atrial Rate : 050 BPM P-R Int : 254 ms QRS Dur : 090 ms QT Int : 446 ms P-R-T Axes : 059 033 112 degrees QTc Int : 406 ms Poor data quality, interpretation may be adversely affected Sinus bradycardia with 1st degree A-V block Abnormal ECG When compared with ECG of 10-JAN-2020 13:50, VA interval has increased QRS axis Shifted right Minimal criteria for Anterior infarct are no longer Present Nonspecific T wave abnormality no longer evident in Inferior leads Confirmed by Deonte Jimenez ([id number]) on 10/05/2021 11:13:13 AM Referred By: Christian Morris Confirmed By:Marlo Jimenez
[2021-10-05] MEDS ORDERED: Nursing to Pharmacy Communication SCH (18:30)
--- NOTE | 2021-10-05 18:40 | Hospitalist Progress Note ---
Date of Service October 05, 2021 Assessment & Plan (1) Pancreatitis: Plan: COVID-19 infection has been well-documented to cause acute pancreatitis thus her COVID infection is possible cause. Can't rule out Paxlovid contributing. Can't rule out gallstone pancreatitis. Either way the Rx is same. Plan - * reduce LR rate to 150cc/hr; she has received 24+ hours of 250cc/hr of LR * NPO except chips * pain meds * repeat Lipase, LFTs in am * with respect to biliary disease/gallstones - timing of elective lap benito is uncertain - see below Of note - highest triglyceride level in the past was low 200s thus doubt such contributing (2) COVID-19: Plan: Day #7 of symptoms. Started Paxlovid on Tuesday of last week - now on hold. No indication for Remdesivir or Dexamethasone at this time. O2 sats wnl; no obvious pneumonia on imaging but at high risk of such. Continue airborne isolation. Flutter valve. Side positioning when sleeping. Low threshold for repeat chest imaging with any clinical worsening. COVID-19 infection could have caused #1 above. (3) Gallstones: Plan: Known gallstones. Certainly could have caused #1. u/s and MRCP without signs of acute cholecystitis. I agree pt needs lap benito but timing is uncertain given #2. See discussion below. Trend LFTs. Trend lipase. NPO. Appreciate gen surg recs. If any signs of developing acute cholecystitis then start broad spectrum IV antibiotic therapy. (4) Hypertensive urgency: Plan: Improved/resolved. Continue amlodipine 5 mg daily, clonidine 0.1 mg twice daily, and valsartan 80 mg twice daily. Hold lasix. (5) Elevated troponin: Plan: 2nd to myocardial demand ischemia in setting of #1, #2. No evidence of ACS. (6) Hypertension: Plan: Continue amlodipine, clonidine, valsartan. Hold lasix BPs improved (7) Type 2 diabetes mellitus: Plan: Novolog SSI. A1c noted (8.3%). Low threshold for basal insulin. (8) Gastroesophageal reflux disease: Plan: Continue PPI. Add H2 ashley IV for refractory symptoms. (9) Hypercholesterolemia: Plan: Continue atorvastatin 80 mg, Tricor 145 mg daily. If AST or CPK remain high then hold both. (10) CAD (coronary artery disease): Plan: Past history: Cardiac cath 02/07/15: 30% early mid and 10-20% mid and distal LAD. 50-60% ostial diagonal. 10-20% ostial and 30% mid LCx. 30% ostial and prox OM. 20% ostial and prox and 10-20% mid and distal RCA. 0-10% PDA. Echo 12/2019: normal biventricular systolic function, mild LVH, grade 1 LV diastolic dysfunction, LV ejection fraction 65-70%, mild left atrial dilatation, no significant valvular abnormalities. [place] with Dr. Gandara [place] [facility]. Continue statin, Tricor, BP meds, ASA. (11) Chronic edema: Plan: Edema is at baseline per patient today. Monitor. Holding lasix due to need for copious hydration for #1 above. (12) Morbid obesity with BMI of 40.0-44.9, adult: Plan: BMI 41.7 (13) Elevated AST (SGOT): Plan: Could be 2nd to COVID-19 infection. Could be 2nd to gallstones. Could be due to CPK elevation from covid-19 related rhabdomyolysis - check CPK am. Repeat LFTs am. (14) DVT prophylaxis: Plan: lovenox 40mg BID Plan: pt's updated by phone care plan d/w Dr Morris from gen surg Patient remains at high risk of COVID-19 illness progression & pneumonia. Highest risk period for such is in the next 2-3 days. Lap benito during this time period would be considered mod-high risk given the active COVID illness. Would cont to provide supportive care for #1 and #2. Admission and Anticipated Discharge Date Admission Date: October 04, 2021 Subjective pt c/o abdominal pain/fullness, especially upper abd and epigastric region lots of burping/belching passing little in the way of flatus no BM since admission no fever, but diffuse myalgias fatigue cough - dry congestion no vomiting but ongoing nausea just simply feels poorly is about 6-7 days into her COVID illness sick with COVID had had 2-shot COVID vaccine but no booster Review of Systems Review of Systems: gen - no fevers; +chills, myalgias, fatigue, no appetite HENT - no loss of taste/smell CV - no cp pulm - cough, no dyspnea or wheezing GI - no vomiting - no urinary symptoms Physical Exam Physical Exam: gen - morbidly obese, sitting in chair, looks unwell/sick mouth - MM and lips dry neck - no JVD heart - RRR, s1 s2, no murmur lungs - CTA b/l, minimal rales bases; no wheeze; no increased work of breathing abd - distended, BS+ but decreased; tender RUQ and epigastric region; no peritoneal signs ext - 1+ edema b/l, pulses 2+ b/l psych - a/o x 3 Results & Data Results & Data ([facility]) Vital Signs (Past 12 Hours) Vital Signs Temp Pulse Pulse Resp BP Pulse Ox 10/05/21 14:17 52 L 10/05/21 12:00 36.7 C 60 22 151/83 H 96 10/05/21 08:55 53 L Laboratory Results Chest X-Ray 10/04/21 15:54 XR chest 1V portable HISTORY: Cough - COVID positive COMPARISON: Chest 01/10/2020. FINDINGS: No pneumothorax or no pleural effusions. The cardiac silhouette is mildly enlarged. No evidence for pulmonary edema. No focal lung consolidations to suggest pneumonia. No evidence for pulmonary edema. Slight prominence of interstitial markings, unchanged. This is likely chronic. IMPRESSION: No significant change compared to the prior study. No acute process. ACT 112: Negative or not required by law. Electronically signed by: Cesar Acevedo M.D. 10/04/2021 4:25 PM Gallbladder Ultrasound 10/04/21 15:54 ABDOMINAL ULTRASOUND, RIGHT UPPER QUADRANT HISTORY: RUQ pain - has gallstones/sludge. COMPARISON: Abdominal ultrasound 09/07/2021. FINDINGS: Pancreas: The pancreatic head and tail are obscured by overlying bowel gas. The remaining portions of the pancreas are within normal limits. Liver: The liver is echogenic consistent with fatty change. 22 cm in length. Gallbladder: Small stones and sludge again noted within the gallbladder. No gallbladder wall thickening. Negative sonographic Sanchez sign. CBD: 7 mm, unchanged. Right kidney: No hydronephrosis. IMPRESSION: 1. A few small stones and sludge within the gallbladder. No gallbladder wall thickening. 2. Hepatomegaly demonstrating fatty change. ACT 112: Negative or not required by law. Electronically signed by: Cesar Acevedo M.D. 10/04/2021 4:48 PM Cholangiopancreatography MRI 10/04/21 17:28 MR MRCP HISTORY: 66 years-old Female suspected gallstone pancreatitis acute right upper quadrant abdominal pain COMPARISON: Abdominal ultrasound 10/04/2021 TECHNIQUE: MRCP without the use of IV contrast was obtained according to institutional protocol FINDINGS: Cardiomegaly. The imaged lower chest is otherwise unremarkable. Patient body habitus limits the study. Degenerative changes of the spine. Hepatomegaly with hepatic steatosis. 2.0 cm T2 hyperintense focus is noted within the fundal uterus. The gallbladder is distended with layering stones within the gallbladder neck. No associated gallbladder wall thickening. The study is motion degraded. The common bile duct measures up to 7 mm. Focal narrowing of the common bile duct is noted on image 13 series 6. No choledocholithiasis. Interstitial and peripancreatic edema with small volume of free fluid within the lesser sac. No pancreatic ductal dilation. Unremarkable soft tissues. No bowel dilation. IMPRESSION: 1. Acute pancreatitis. No associated pancreatic ductal dilation. 2. Distended gallbladder with cholelithiasis. No definitive evidence of acute cholecystitis. 3. No choledocholithiasis identified. There is focal narrowing within the distal common bile duct which is likely secondary to the edematous duodenum or pancreas. An underlying lesion is considered less likely. ACT 112: Negative or not required by law. The above report was generated using voice recognition software. It may contain grammatical, syntax or spelling errors. Electronically signed by: Yaya Ho M.D. 10/05/2021 9:07 AM KUB X-Ray 10/05/21 18:39 XR KUB/Abdomen 1 view CLINICAL HISTORY: pancreatitis; abd distension; ?ileus? TECHNIQUE: 1 view of the abdomen was obtained. Comparison: Comparison is made to MRCP 10/04/2021 FINDINGS: Lung bases are unremarkable. The osseous structures are grossly unremarkable. The bowel gas pattern is nonobstructive. A moderate amount of stool is noted within the large bowel. IMPRESSION: Nonobstructive bowel gas pattern. ACT 112: Negative or not required by law. Electronically signed by: Rigoberto Cantu M.D. 10/05/2021 7:52 PM PG Care Time/CCT Total # of Minutes Spent Total Time Spent with Patient: Total time spent is greater than 50% in coordination of care (as documented) at patient's floor/unit and/or counseling patient: Coding Level of Care Code 01716 Subseq Hosp Care Lvl 3 Diagnoses Pancreatitis K85.90 Hypertensive urgency I16.0 Elevated troponin R77.8 COVID-19 U07.1 Hypertension I10 Type 2 diabetes mellitus E11.9 Gastroesophageal reflux disease K21.9 Hypercholesterolemia E78.00 CAD (coronary artery disease) I25.10 Chronic edema R60.9 Morbid obesity with BMI of 40.0-44.9, adult E66.01; Z68.41 Elevated AST (SGOT) R74.01 DVT prophylaxis Z29.9 Gallstones K80.20
--- NOTE | 2021-10-05 19:54 | XRay Report ---
XR KUB/Abdomen 1 view CLINICAL HISTORY: pancreatitis; abd distension; ?ileus? TECHNIQUE: 1 view of the abdomen was obtained. Comparison: Comparison is made to MRCP 10/04/2021 FINDINGS: Lung bases are unremarkable. The osseous structures are grossly unremarkable. The bowel gas pattern i s nonobstructive. A moderate amount of stool is noted within the large bowel. IMPRESSION: Nonobstructive bowel gas pattern. ACT 112: Negative or not required by law. Electronically signed by: Rigoberto Cantu M.D. 10/05/2021 7:52 PM
[2021-10-05] MEDS: ATORVASTATIN 40 MG TAB PO SCH (20:00)
[2021-10-05] MEDS: FAMOTIDINE 20 MG in SYRINGE 3 ML IV SCH (21:49)
[2021-10-06] MEDS: LACTATED RINGER'S 1,000 ML IV SCH ×3 (05:18→22:11)
[2021-10-06] MEDS: INSULIN ASPART PER UNIT SC SCH ×4 (05:23→22:08)
[2021-10-06] MEDS: ONDANSETRON INJ 2 MG/ML 2 ML VIAL IV PRN ×3 (07:53→21:48)
[2021-10-06] MEDS: ENOXAPARIN INJ 40 MG/0.4 ML SYR SQ SCH ×2 (07:54→21:56)
[2021-10-06] MEDS: VALSARTAN 80 MG TAB PO SCH ×2 (07:55→21:55)
[2021-10-06] MEDS: cloNIDine HCL 0.1 MG TAB PO SCH ×2 (07:55→21:55)
[2021-10-06] MEDS: amLODIPine BESYLATE 5 MG TAB PO SCH (07:55)
[2021-10-06] MEDS: FENOFIBRATE NANOCRYSTALLIZED 145 MG TABLET PO SCH (07:55)
[2021-10-06] MEDS: POTASSIUM CHLORIDE 10 MEQ TABCR PO SCH (07:55)
[2021-10-06] MEDS: PANTOprazole 40 MG TAB PO SCH (07:55)
[2021-10-06] MEDS: guaiFENesin 600 MG TABCR PO PRN (07:55)
[2021-10-06] MEDS: BENZONATATE 100 MG CAPSULE PO PRN (07:55)
[2021-10-06] MEDS: ASPIRIN 81 MG ECTAB PO SCH (07:56)
[2021-10-06] MEDS: TOLTERODINE TARTRATE LA 4 MG CAPCR PO SCH (07:56)
[2021-10-06] MEDS: POLYETHYLENE (MIRALAX) 17 GM PACK PO PRN (07:57)
[2021-10-06 08:47] LABS: Hematocrit (blood only) 37.5 % (37-47); Hemoglobin 12.2 g/dL (12.0-16.0); Mean Corpuscular Hgb Conc 32.5 g/dL (32-36); Mean Corpuscular Volume 89.3 fL (80-100); Mean Platelet Volume 10.3 fL (7.4-10.4); Platelet Count 198 K/uL (130-400); RDW Standard Deviation 45.9 fL (36.4-46.3); White Blood Count 5.46 K/uL (4.8-10.8)
[2021-10-06 09:21] LABS: Albumin Globulin Ratio 1.1 (0.9-2); Albumin Level 3.5 gm/dl (3.4-5.0); BUN Creatinine Ratio 10.9 (10-20); Bilirubin,Total 0.6 mg/dl (0.2-1.0); Calcium 8.7 mg/dl (8.5-10.1); Creatinine Clr Calc Pharmacy 134.9 ml/min; Est GFR (African American) 113.3 ml/min; Est GFR (Non-African American) 97.7 ml/min; Globulin 3.1 gm/dl (2.5-4.0); Potassium 3.9 mmol/L (3.5-5.1); Total Protein 6.6 gm/dl (6.0-8.3)
[2021-10-06 09:46] LABS: Basophils # (auto) 0.01 K/uL (0-0.2); Basophils % (auto) 0.2 %; Eosinophils # (auto) 0.11 K/uL (0-0.5); Immature Granulocytes # (auto) 0.01 K/uL (0.00-0.02); Immature Granulocytes % (auto) 0.2 %; Lymphocytes # (auto) 1.27 K/uL (1.2-3.4); Lymphocytes % (auto) 23.3 %; Monocytes # (auto) 0.34 K/uL (0.11-0.59); Monocytes % (auto) 6.2 %; Neutrophils # (auto) 3.72 K/uL (1.4-6.5); Neutrophils % (auto) 68.1 %
[2021-10-06] MEDS: FAMOTIDINE 20 MG in SYRINGE 3 ML IV SCH ×2 (10:19→21:56)
[2021-10-06] MEDS: HYDROmorphone INJ 0.5 MG/0.5 ML SYR IV PRN (10:20)
[2021-10-06] MEDS ORDERED: Nursing to Pharmacy Communication SCH (12:30)
[2021-10-06] MEDS: HYDROmorphone INJ 1 MG/ML SYRINGE IV PRN ×3 (12:39→21:48)
[2021-10-06] MEDS ORDERED: bisacodyL 10 MG SUPP PR ONE (15:44)
[2021-10-06] MEDS ORDERED: bisacodyL 10 MG SUPP PR STA (15:55)
--- NOTE | 2021-10-06 16:08 | Hospitalist Progress Note ---
Date of Service October 06, 2021 Assessment & Plan (1) Pancreatitis: Plan: COVID-19 infection has been well-documented to cause acute pancreatitis thus her COVID infection is possible cause. Can't rule out Paxlovid she took prior to admission contributing. Can't rule out gallstone pancreatitis. Either way the Rx is same. Pain is ongoing but somewhat improved. Lipase down to 197. LFTs normal MRCP without choledocholithiasis but does show narrowing of distal CBD which is thought to be extrinsic With associated ileus Plan - * reduce LR rate to75cc/hr * adv diet to clears * continue pain meds * repeat Lipase, LFTs in am * with respect to biliary disease/gallstones - timing of elective lap benito is uncertain - delayed for now as per Surgery * add bisacodyl [place] x 1 now for ileus, encouraged ambulation, minimize opioid use Of note - highest triglyceride level in the past was low 200s thus doubt such contributing (2) COVID-19: Plan: SYmptoms started 09/28. Took 2-3 days of Paxlovid - now on hold. No indication for Remdesivir or Dexamethasone at this time. O2 sats remain wnl; no obvious pneumonia on imaging but at high risk of such. Cough is now resolved, headaches are resolved is improved Continue airborne isolation. Flutter valve. Side positioning when sleeping. Low threshold for repeat chest imaging with any clinical worsening. COVID-19 infection could have caused pancreatitis (3) Gallstones: Plan: Known gallstones. Certainly could have caused pancreatitis u/s and MRCP without signs of acute cholecystitis. I agree pt needs lap benito but timing is uncertain given COVID+ Trend LFTs. Trend lipase. Appreciate gen surg recs. If any signs of developing acute cholecystitis then start broad spectrum IV antibiotic therapy. (4) Hypertensive urgency: Plan: Improved/resolved. Continue amlodipine 5 mg daily, clonidine 0.1 mg twice daily, and valsartan 80 mg twice daily. Hold lasix. (5) Elevated troponin: Plan: 2nd to myocardial demand ischemia in setting of pancreatitis and COVID No evidence of ACS. (6) Hypertension: Plan: Continue amlodipine, clonidine, valsartan. Hold lasix BPs improved (7) Type 2 diabetes mellitus: Plan: Novolog SSI. A1c noted (8.3%). Low threshold for basal insulin. (8) Gastroesophageal reflux disease: Plan: Continue PPI. Added H2 ashley IV for refractory symptoms. (9) Hypercholesterolemia: Plan: Continue atorvastatin 80 mg, Tricor 145 mg daily. If AST or CPK remain high then hold both. (10) CAD (coronary artery disease): Plan: Past history: Cardiac cath 02/07/15: 30% early mid and 10-20% mid and distal LAD. 50-60% ostial diagonal. 10-20% ostial and 30% mid LCx. 30% ostial and prox OM. 20% ostial and prox and 10-20% mid and distal RCA. 0-10% PDA. Echo 12/2019: normal biventricular systolic function, mild LVH, grade 1 LV diastolic dysfunction, LV ejection fraction 65-70%, mild left atrial dilatation, no significant valvular abnormalities. Follows with Dr. Gandara - [facility] Cardiology. Continue statin, Tricor, BP meds, ASA. (11) Chronic edema: Plan: Edema is at baseline per patient today. Monitor. Holding lasix due to need for hydration for pancreatitis (12) Morbid obesity with BMI of 40.0-44.9, adult: Plan: BMI 41.7 Needs weight loss (13) Elevated AST (SGOT): Plan: Could be 2nd to COVID-19 infection. Could be 2nd to gallstones. CPK normal Now resolved (14) Thickened endometrium: Plan: noted as an addendum on CT abd/pel needs outpt pelvic US after recovery from hospitalization (15) DVT prophylaxis: Plan: lovenox 40mg BID Plan: Dispo-continued stay on med tele COIVD isolation Patient remains at high risk of COVID-19 illness progression & pneumonia. Highest risk period for such is in the next 2-3 days. Lap benito during this time period would be considered mod-high risk given the active COVID illness. Admission and Anticipated Discharge Date Admission Date: October 04, 2021 Subjective Still having epigastric and RUQ abd pain. Feels bloated and distended, no BM in 5 days but is passing flatus. Is also belching and getting the hiccups frequently. She is tolerating clears today but reports it does seem to make her feel more distended. No SOB and her cough is much improved since yesterday Tele with SB,1st degree AVB,PACs, rates 40-50s Review of Systems Review of Systems: All systems reviewed & are unremarkable except as noted in HPI & below Physical Exam Constitutional: WD/WN, vitals as above + obese Eyes: + anicteric sclerae Neck: trachea midline, no thyromegaly Respiratory: normal respiratory effort, lungs clear to auscultation Cardiovascular: Rate/Rhythm: regular rhythm and + bradycardic Heart Sounds: no murmur Extremities: + edema (chronic 1 + bilat legs) Chest (Breasts): Chest: normal inspection of chest Gastrointestinal (Abdomen): Inspection/Auscultation: abdomen normal to inspection, + abdomen distended (mild) and normal bowel sounds Percussion/Palpation: + abdomen tender (epigastric and RUQ regions w/o guarding or rebound) and abdomen soft Musculoskeletal: Extremities: extremities normal to inspection; no cyanosis and no clubbing Skin: no rashes, warm and dry Neurologic: moves all extremities and awake; no focal motor deficits Psychiatric: A+Ox3, euthymic affect Lymphatic: no lymphedema Results & Data Results & Data ([facility]) Vital Signs (Past 12 Hours) Vital Signs Temp Pulse Pulse Resp BP BP Pulse Ox 10/06/21 15:37 36.6 C 50 L 18 104/66 96 10/06/21 14:57 52 L 10/06/21 11:30 36.9 C 52 L 18 134/82 94 10/06/21 08:00 36.5 C 59 L 18 144/80 H 95 10/06/21 07:07 51 L Laboratory Results 10/06/21 10/06/21 10/06/21 Range/Units 12:01 07:44 07:44 WBC 5.46 (4.8-10.8) K/uL RBC 4.20 (4.2-5.4) M/uL Hgb 12.2 (12.0-16.0) g/dL Hct 37.5 (37-47) % MCV 89.3 (80-100) fL MCH 29.0 (25-34) pg MCHC 32.5 (32-36) g/dL RDW Std Deviation 45.9 (36.4-46.3) fL RDW Coeff of Jonas 14.0 (11.5-14.5) % Plt Count 198 (130-400) K/uL MPV 10.3 (7.4-10.4) fL Immature Gran % (Auto) 0.2 % Neut % (Auto) 68.1 % Lymph % (Auto) 23.3 % [place] % (Auto) 6.2 % Eos % (Auto) 2.0 % Baso % (Auto) 0.2 % Neut # (Auto) 3.72 (1.4-6.5) K/uL Lymph # (Auto) 1.27 (1.2-3.4) K/uL [place] # (Auto) 0.34 (0.11-0.59) K/uL Eos # (Auto) 0.11 (0-0.5) K/uL Baso # (Auto) 0.01 (0-0.2) K/uL Immature Gran # (Auto) 0.01 (0.00-0.02) K/uL Sodium 137 (136-145) mmol/L Potassium 3.9 (3.5-5.1) mmol/L Chloride 102 (98-107) mmol/L Carbon Dioxide 28 (21-32) mmol/L Anion Gap 7 (3-11) BUN 6 (6-23) mg/dl Creatinine 0.55 L (0.6-1.2) mg/dl Est Cr Clr Drug Dosing 134.9 ml/min Est GFR ( Amer) 113.3 ml/min Est GFR (Non-Af Amer) 97.7 ml/min BUN/Creatinine Ratio 10.9 (10-20) Glucose 139 H (70-99(Fasting)) mg/dl POC Glucose 159 H (70-99) mg/dl Calcium 8.7 (8.5-10.1) mg/dl Total Bilirubin 0.6 (0.2-1.0) mg/dl AST 20 (13-39) U/L ALT 36 (7-52) U/L Alkaline Phosphatase 44 (34-104) U/L Total Creatine Kinase 63 (26-192) U/L Total Protein 6.6 (6.0-8.3) gm/dl Albumin 3.5 (3.4-5.0) gm/dl Globulin 3.1 (2.5-4.0) gm/dl Albumin/Globulin Ratio 1.1 (0.9-2) Lipase 197 H (11-82) U/L 10/06/21 10/05/21 10/05/21 Range/Units 05:16 23:47 18:31 WBC (4.8-10.8) K/uL RBC (4.2-5.4) M/uL Hgb (12.0-16.0) g/dL Hct (37-47) % MCV (80-100) fL MCH (25-34) pg MCHC (32-36) g/dL RDW Std Deviation (36.4-46.3) fL RDW Coeff of Jonas (11.5-14.5) % Plt Count (130-400) K/uL MPV (7.4-10.4) fL Immature Gran % (Auto) % Neut % (Auto) % Lymph % (Auto) % [place] % (Auto) % Eos % (Auto) % Baso % (Auto) % Neut # (Auto) (1.4-6.5) K/uL Lymph # (Auto) (1.2-3.4) K/uL [place] # (Auto) (0.11-0.59) K/uL Eos # (Auto) (0-0.5) K/uL Baso # (Auto) (0-0.2) K/uL Immature Gran # (Auto) (0.00-0.02) K/uL Sodium (136-145) mmol/L Potassium (3.5-5.1) mmol/L Chloride (98-107) mmol/L Carbon Dioxide (21-32) mmol/L Anion Gap (3-11) BUN (6-23) mg/dl Creatinine (0.6-1.2) mg/dl Est Cr Clr Drug Dosing ml/min Est GFR ( Amer) ml/min Est GFR (Non-Af Amer) ml/min BUN/Creatinine Ratio (10-20) Glucose (70-99(Fasting)) mg/dl POC Glucose 160 H 145 H 135 H (70-99) mg/dl Calcium (8.5-10.1) mg/dl Total Bilirubin (0.2-1.0) mg/dl AST (13-39) U/L ALT (7-52) U/L Alkaline Phosphatase (34-104) U/L Total Creatine Kinase (26-192) U/L Total Protein (6.0-8.3) gm/dl Albumin (3.4-5.0) gm/dl Globulin (2.5-4.0) gm/dl Albumin/Globulin Ratio (0.9-2) Lipase (11-82) U/L PG Care Time/CCT Total # of Minutes Spent Total Time Spent with Patient: Total time spent is greater than 50% in coordination of care (as documented) at patient's floor/unit and/or counseling patient: Coding Level of Care Code 97299 Subseq Hosp Care Lvl 3 Diagnoses Pancreatitis K85.90 COVID-19 U07.1 Gallstones K80.20 Hypertensive urgency I16.0 Elevated troponin R77.8 Hypertension I10 Type 2 diabetes mellitus E11.9 Gastroesophageal reflux disease K21.9 Hypercholesterolemia E78.00 CAD (coronary artery disease) I25.10 Chronic edema R60.9 Morbid obesity with BMI of 40.0-44.9, adult E66.01; Z68.41 Elevated AST (SGOT) R74.01 DVT prophylaxis Z29.9 Thickened endometrium R93.89
[2021-10-06] MEDS: ATORVASTATIN 40 MG TAB PO SCH (21:55)
[2021-10-07] MEDS: HYDROmorphone INJ 1 MG/ML SYRINGE IV PRN ×3 (08:12→21:23)
[2021-10-07] MEDS: POLYETHYLENE (MIRALAX) 17 GM PACK PO PRN (08:12)
[2021-10-07] MEDS: cloNIDine HCL 0.1 MG TAB PO SCH ×2 (08:16→21:20)
[2021-10-07] MEDS: amLODIPine BESYLATE 5 MG TAB PO SCH (08:16)
[2021-10-07] MEDS: ASPIRIN 81 MG ECTAB PO SCH (08:16)
[2021-10-07] MEDS: PANTOprazole 40 MG TAB PO SCH (08:17)
[2021-10-07] MEDS: FENOFIBRATE NANOCRYSTALLIZED 145 MG TABLET PO SCH (08:17)
[2021-10-07] MEDS: ENOXAPARIN INJ 40 MG/0.4 ML SYR SQ SCH ×2 (08:17→21:21)
[2021-10-07] MEDS: TOLTERODINE TARTRATE LA 4 MG CAPCR PO SCH (08:18)
[2021-10-07] MEDS: VALSARTAN 80 MG TAB PO SCH ×2 (08:18→21:21)
[2021-10-07] MEDS: POTASSIUM CHLORIDE 10 MEQ TABCR PO SCH (08:18)
[2021-10-07] MEDS: LACTATED RINGER'S 1,000 ML IV SCH (08:18)
[2021-10-07] MEDS: INSULIN ASPART PER UNIT SC SCH ×4 (08:39→21:09)
[2021-10-07] MEDS: FAMOTIDINE 20 MG in SYRINGE 3 ML IV SCH (08:40)
[2021-10-07] MEDS ORDERED: bisacodyL 10 MG SUPP PR STA (08:41)
[2021-10-07 08:48] LABS: Basophils # (auto) 0.01 K/uL (0-0.2); Basophils % (auto) 0.2 %; Eosinophils # (auto) 0.15 K/uL (0-0.5); Eosinophils % (auto) 2.3 %; Immature Granulocytes # (auto) 0.03 K/uL (0.00-0.02); Immature Granulocytes % (auto) 0.5 %; Lymphocytes # (auto) 1.03 K/uL (1.2-3.4); Mean Corpuscular Hemoglobin 28.6 pg (25-34); Mean Corpuscular Hgb Conc 32.4 g/dL (32-36); Mean Corpuscular Volume 88.3 fL (80-100); Mean Platelet Volume 10.3 fL (7.4-10.4); Monocytes # (auto) 0.53 K/uL (0.11-0.59); Monocytes % (auto) 8.2 %; Neutrophils # (auto) 4.69 K/uL (1.4-6.5); Neutrophils % (auto) 72.8 %; Platelet Count 215 K/uL (130-400); RDW Coefficient of Variation 13.8 % (11.5-14.5); RDW Standard Deviation 44.7 fL (36.4-46.3); Red Blood Count 4.19 M/uL (4.2-5.4); White Blood Count 6.44 K/uL (4.8-10.8)
[2021-10-07 09:17] LABS: Albumin Level 3.5 gm/dl (3.4-5.0); BUN Creatinine Ratio 11.3 (10-20); Bilirubin,Total 0.8 mg/dl (0.2-1.0); Calcium 8.6 mg/dl (8.5-10.1); Creatinine Clr Calc Pharmacy 143.5 ml/min; Est GFR (African American) 114.7 ml/min; Est GFR (Non-African American) 98.9 ml/min; Globulin 3.5 gm/dl (2.5-4.0); Magnesium 1.6 mg/dl (1.7-2.4); Phosphorus 2.3 mg/dl (2.5-4.9); Potassium 3.4 mmol/L (3.5-5.1)
[2021-10-07] MEDS ORDERED: POTASSIUM PHOS 3 MMOL/1 ML INFUSION IV STA (11:54)
[2021-10-07] MEDS ORDERED: POTASSIUM PHOSPHATE 15 MMOL in SODIUM CHLORIDE 0.9% 250 ML IV ONE (12:30)
[2021-10-07] MEDS ORDERED: MAGNESIUM CITRATE 296 ML/BTL PO SCH (13:30)
--- NOTE | 2021-10-07 13:37 | Surgery Progress Note ---
Date of Service October 07, 2021 Assessment & Plan (1) Pancreatitis: Plan: Patient with history of gallstones here with acute pancreatitis -WBC 6, and LFTs and Lipase are within normal limits -Remains with some abdominal pain, likely related to her pancreatitis as well as probable constipation -No BM despite miralax and suppositories, will try giving mg citrate today -Okay to advance to full liquids, then slowly advance as tolerates pending resolution of ileus -No plans for surgical intervention this admission. Will let her recover from pancreatitis and Covid and plan to reschedule her in the future for an elective cholecystectomy Admission and Anticipated Discharge Date Admission Date: October 04, 2021 Supervising Physician Co-Signing Physician Notes will continue to monitor pt. Lipase and LFTs are normal. I don't think she has significant cholecystitis. Could be gallstone pancreatitis . Will allow her additional time to recover from Covid effects Likely postpone lap benito and set as outpt through office Subjective Patient seen, not feeling the best. Having abdominal discomfort, mostly in RUQ/epigastric region that radiates to the back. She is tolerating clear liquids, no n/v. Passing flatus, but no BM since Tuesday. Feeling constipated. Reports her Covid-19 symptoms seem to be improving. Physical Exam Physical Exam: awake/alert, no acute distress Respiratory: normal respirations, saturating well on room air Gastrointestinal (Abdomen): Inspection/Auscultation: + abdomen distended Percussion/Palpation: + abdomen tender (in RUQ/Epigastric regions) and abdomen soft Results & Data ([facility]) Vital Signs (Past 12 Hours) Vital Signs Temp Pulse Pulse Resp BP Pulse Ox 10/07/21 12:02 36.8 C 52 L 18 110/73 96 10/07/21 08:00 57 L 10/07/21 06:52 36.7 C 58 L 18 129/67 95 PG Care Time/CCT Total # of Minutes Spent Total Time Spent with Patient: Total time spent is greater than 50% in coordination of care (as documented) at patient's floor/unit and/or counseling patient: Coding Level of Care Code 27279 Subseq Hosp Care Lvl 1 Diagnoses Pancreatitis K85.90
[2021-10-07] MEDS: cephALEXin 500 MG CAP PO SCH ×2 (15:00→21:20)
[2021-10-07] MEDS: MAGNESIUM SULFATE / D5W 1 GM/100 ML BAG IV SCH ×2 (15:02→17:07)
--- NOTE | 2021-10-07 15:47 | Hospitalist Progress Note ---
Date of Service October 07, 2021 Assessment & Plan (1) Pancreatitis: Plan: COVID-19 infection has been well-documented to cause acute pancreatitis thus her COVID infection is possible cause. Can't rule out Paxlovid she took prior to admission contributing. Can't rule out gallstone pancreatitis. Either way the Rx is same. Pain is ongoing but somewhat improved. Lipase back to normal LFTs normal MRCP without choledocholithiasis but does show narrowing of distal CBD which is thought to be extrinsic With associated ileus ongoing Still requiring IV Dilaudid for pain Plan - * dc IVFs * adv diet to full liquids * continue pain meds with IV dilaudid and add on po APAP and po tramadol * follow LFTs in AM * with respect to biliary disease/gallstones -plan nwo for lap benito as an outpat after recovery from COVID and pancreatitis * give another bisacodyl [place] x 1 now for ileus, add mag citrate as per Surgery,encouraged ambulation, minimize opioid use Of note - highest triglyceride level in the past was low 200s thus doubt such contributing (2) COVID-19: Plan: SYmptoms started 09/28. Took 2-3 days of Paxlovid - now on hold. No indication for Remdesivir or Dexamethasone at this time. O2 sats remain wnl; no obvious pneumonia on imaging but at high risk of such. Cough is now resolved, headaches are resolved is improved Continue airborne isolation. Flutter valve. Side positioning when sleeping. Low threshold for repeat chest imaging with any clinical worsening. COVID-19 infection could have caused pancreatitis (3) Gallstones: Plan: Known gallstones. Certainly could have caused pancreatitis u/s and MRCP without signs of acute cholecystitis. plan for lap benito as outpt Trend LFTs. Appreciate gen surg recs. If any signs of developing acute cholecystitis then start broad spectrum IV antibiotic therapy. (4) Hypertensive urgency: Plan: Improved/resolved. Continue amlodipine 5 mg daily, clonidine 0.1 mg twice daily, and valsartan 80 mg twice daily. Hold lasix. (5) Elevated troponin: Plan: 2nd to myocardial demand ischemia in setting of pancreatitis and COVID No evidence of ACS. had a few bursts of atrial tach on tele-asymptomatic (6) Hypertension: Plan: Continue amlodipine, clonidine, valsartan. Hold lasix BPs improved (7) Type 2 diabetes mellitus: Plan: Novolog SSI. A1c noted (8.3%). Low threshold for basal insulin. (8) Gastroesophageal reflux disease: Plan: Continue PPI. ok to dc IV pepcid (9) Hypercholesterolemia: Plan: Continue atorvastatin 80 mg, Tricor 145 mg daily. If AST or CPK remain high then hold both. (10) CAD (coronary artery disease): Plan: Past history: Cardiac cath 02/07/15: 30% early mid and 10-20% mid and distal LAD. 50-60% ostial diagonal. 10-20% ostial and 30% mid LCx. 30% ostial and prox OM. 20% ostial and prox and 10-20% mid and distal RCA. 0-10% PDA. Echo 12/2019: normal biventricular systolic function, mild LVH, grade 1 LV diastolic dysfunction, LV ejection fraction 65-70%, mild left atrial dilatation, no significant valvular abnormalities. Follows with Dr. Gandara - [facility]. Continue statin, Tricor, BP meds, ASA. (11) Chronic edema: Plan: Edema is at baseline per patient today. Monitor. Holding lasix due to need for hydration for pancreatitis (12) Morbid obesity with BMI of 40.0-44.9, adult: Plan: BMI 41.7 Needs weight loss (13) Elevated AST (SGOT): Plan: Could be 2nd to COVID-19 infection. Could be 2nd to gallstones. CPK normal Now resolved (14) Thickened endometrium: Plan: noted as an addendum on CT abd/pel needs outpt pelvic US after recovery from hospitalization (15) DVT prophylaxis: Plan: lovenox 40mg BID (16) UTI (urinary tract infection): Plan: UA with epis but Ur cx growing E. coli will add on keflex x 7 day course (17) Hypomagnesemia: Plan: replace follow level (18) Hypokalemia: Plan: replace with Kphos follow BMP (19) Hypophosphatemia: Plan: replace Plan: Dispo-continued stay on med tele COIVD isolation Improving, awaiting ileus to improve, hopeful for dc to [facility] next 1-2 days Admission and Anticipated Discharge Date Admission Date: October 04, 2021 Subjective Still no BM but is passing flatus, no nausea. Still requiring IV dilaudid for epigastric pain but that is really helping. Se wants to try po pain meds to see if she can go home tomorrow with po pain meds. Otherwise no SOB Tele with SB, NSR, PACs,rates 50-80s, a few bursts of atrial tachycardia Review of Systems Review of Systems: All systems reviewed & are unremarkable except as noted in HPI & below Physical Exam Constitutional: WD/WN, vitals as above + obese Eyes: + anicteric sclerae Neck: trachea midline, no thyromegaly Respiratory: normal respiratory effort, lungs clear to auscultation Cardiovascular: Rate/Rhythm: regular rhythm and + bradycardic Heart Sounds: no murmur Extremities: + edema (1+ bilat legs to knees) Chest (Breasts): Chest: normal inspection of chest Gastrointestinal (Abdomen): Inspection/Auscultation: abdomen normal to inspection, + abdomen distended (mild) and normal bowel sounds Percussion/Palpation: + abdomen tender (epigastric and RUQ regions w/o guarding or rebound) and abdomen soft Musculoskeletal: Extremities: extremities normal to inspection; no cyanosis and no clubbing Skin: no rashes, warm and dry Neurologic: moves all extremities and awake; no focal motor deficits Psychiatric: A+Ox3, euthymic affect Lymphatic: no lymphedema Results & Data Results & Data ([facility]) Vital Signs (Past 12 Hours) Vital Signs Temp Pulse Pulse Resp BP Pulse Ox 10/07/21 14:36 36.8 C 53 L 18 113/70 96 10/07/21 12:02 36.8 C 52 L 18 110/73 96 10/07/21 08:00 57 L 10/07/21 06:52 36.7 C 58 L 18 129/67 95 Laboratory Results 10/07/21 10/07/21 10/07/21 Range/Units 11:58 08:14 08:14 WBC 6.44 (4.8-10.8) K/uL RBC 4.19 L (4.2-5.4) M/uL Hgb 12.0 (12.0-16.0) g/dL Hct 37.0 (37-47) % MCV 88.3 (80-100) fL MCH 28.6 (25-34) pg MCHC 32.4 (32-36) g/dL RDW Std Deviation 44.7 (36.4-46.3) fL RDW Coeff of Jonas 13.8 (11.5-14.5) % Plt Count 215 (130-400) K/uL MPV 10.3 (7.4-10.4) fL Immature Gran % (Auto) 0.5 % Neut % (Auto) 72.8 % Lymph % (Auto) 16.0 % [place] % (Auto) 8.2 % Eos % (Auto) 2.3 % Baso % (Auto) 0.2 % Neut # (Auto) 4.69 (1.4-6.5) K/uL Lymph # (Auto) 1.03 L (1.2-3.4) K/uL [place] # (Auto) 0.53 (0.11-0.59) K/uL Eos # (Auto) 0.15 (0-0.5) K/uL Baso # (Auto) 0.01 (0-0.2) K/uL Immature Gran # (Auto) 0.03 H (0.00-0.02) K/uL Sodium 137 (136-145) mmol/L Potassium 3.4 L (3.5-5.1) mmol/L Chloride 103 (98-107) mmol/L Carbon Dioxide 26 (21-32) mmol/L Anion Gap 8 (3-11) BUN 6 (6-23) mg/dl Creatinine 0.53 L (0.6-1.2) mg/dl Est Cr Clr Drug Dosing 143.5 ml/min Est GFR ( Amer) 114.7 ml/min Est GFR (Non-Af Amer) 98.9 ml/min BUN/Creatinine Ratio 11.3 (10-20) Glucose 165 H (70-99(Fasting)) mg/dl POC Glucose 157 H (70-99) mg/dl Calcium 8.6 (8.5-10.1) mg/dl Phosphorus 2.3 L (2.5-4.9) mg/dl Magnesium 1.6 L (1.7-2.4) mg/dl Total Bilirubin 0.8 (0.2-1.0) mg/dl AST 18 (13-39) U/L ALT 29 (7-52) U/L Alkaline Phosphatase 44 (34-104) U/L Total Protein 7.0 (6.0-8.3) gm/dl Albumin 3.5 (3.4-5.0) gm/dl Globulin 3.5 (2.5-4.0) gm/dl Albumin/Globulin Ratio 1.0 (0.9-2) Lipase 58 (11-82) U/L 10/07/21 10/06/21 10/06/21 Range/Units 07:38 20:26 16:56 WBC (4.8-10.8) K/uL RBC (4.2-5.4) M/uL Hgb (12.0-16.0) g/dL Hct (37-47) % MCV (80-100) fL MCH (25-34) pg MCHC (32-36) g/dL RDW Std Deviation (36.4-46.3) fL RDW Coeff of Jonas (11.5-14.5) % Plt Count (130-400) K/uL MPV (7.4-10.4) fL Immature Gran % (Auto) % Neut % (Auto) % Lymph % (Auto) % [place] % (Auto) % Eos % (Auto) % Baso % (Auto) % Neut # (Auto) (1.4-6.5) K/uL Lymph # (Auto) (1.2-3.4) K/uL [place] # (Auto) (0.11-0.59) K/uL Eos # (Auto) (0-0.5) K/uL Baso # (Auto) (0-0.2) K/uL Immature Gran # (Auto) (0.00-0.02) K/uL Sodium (136-145) mmol/L Potassium (3.5-5.1) mmol/L Chloride (98-107) mmol/L Carbon Dioxide (21-32) mmol/L Anion Gap (3-11) BUN (6-23) mg/dl Creatinine (0.6-1.2) mg/dl Est Cr Clr Drug Dosing ml/min Est GFR ( Amer) ml/min Est GFR (Non-Af Amer) ml/min BUN/Creatinine Ratio (10-20) Glucose (70-99(Fasting)) mg/dl POC Glucose 158 H 182 H 117 H (70-99) mg/dl Calcium (8.5-10.1) mg/dl Phosphorus (2.5-4.9) mg/dl Magnesium (1.7-2.4) mg/dl Total Bilirubin (0.2-1.0) mg/dl AST (13-39) U/L ALT (7-52) U/L Alkaline Phosphatase (34-104) U/L Total Protein (6.0-8.3) gm/dl Albumin (3.4-5.0) gm/dl Globulin (2.5-4.0) gm/dl Albumin/Globulin Ratio (0.9-2) Lipase (11-82) U/L PG Care Time/CCT Total # of Minutes Spent Total Time Spent with Patient: Total time spent is greater than 50% in coordination of care (as documented) at patient's floor/unit and/or counseling patient: Coding Level of Care Code 95808 Subseq Hosp Care Lvl 3 Diagnoses Pancreatitis K85.90 COVID-19 U07.1 Gallstones K80.20 Hypertensive urgency I16.0 Elevated troponin R77.8 Hypertension I10 Type 2 diabetes mellitus E11.9 Gastroesophageal reflux disease K21.9 Hypercholesterolemia E78.00 CAD (coronary artery disease) I25.10 Chronic edema R60.9 Morbid obesity with BMI of 40.0-44.9, adult E66.01; Z68.41 Elevated AST (SGOT) R74.01 Thickened endometrium R93.89 DVT prophylaxis Z29.9 UTI (urinary tract infection) N39.0 Hypomagnesemia E83.42 Hypokalemia E87.6 Hypophosphatemia E83.39
[2021-10-07] MEDS ORDERED: ACETAMINOPHEN 500 MG TAB PO PRN (15:49)
[2021-10-07] MEDS: ATORVASTATIN 40 MG TAB PO SCH (21:19)
[2021-10-07] MEDS: ONDANSETRON INJ 2 MG/ML 2 ML VIAL IV PRN (21:22)
--- NOTE | 2021-10-08 08:29 | Surgery Progress Note ---
Date of Service October 08, 2021 Assessment & Plan (1) Gallstones: Plan: cont RUQ pain , rec Dilaudid at night will recheck U/S gb for changes Try to check Hida- if Cystic duct obstructed may consider Lap benito sooner - ?Tomorrow Admission and Anticipated Discharge Date Admission Date: October 04, 2021 Supervising Physician Co-Signing Physician Notes Dr. Morrispatient said she is starving and would like it very much to go home We will cancel her ultrasound and HIDA scan and start her on a diet of more regular food Possible discharge home tomorrow-we will reschedule her laparoscopic cholecystectomy Results & Data ([facility]) Vital Signs (Past 12 Hours) Vital Signs Temp Pulse Pulse Resp BP Pulse Ox 10/08/21 08:05 36.8 C 86 18 137/81 93 10/08/21 04:22 36.8 C 47 L 18 121/70 94 10/07/21 22:27 59 L 10/07/21 22:21 36.7 C 67 18 130/81 93 10/07/21 21:18 77 122/73 PG Care Time/CCT Total # of Minutes Spent Total Time Spent with Patient: Total time spent is greater than 50% in coordination of care (as documented) at patient's floor/unit and/or counseling patient: Coding Level of Care Code 41310 Inpt Consult Level 1 Diagnoses Gallstones K80.20
[2021-10-08 09:05] LABS: Basophils # (auto) 0.01 K/uL (0-0.2); Basophils % (auto) 0.2 %; Eosinophils # (auto) 0.17 K/uL (0-0.5); Eosinophils % (auto) 2.7 %; Hemoglobin 11.2 g/dL (12.0-16.0); Immature Granulocytes # (auto) 0.03 K/uL (0.00-0.02); Immature Granulocytes % (auto) 0.5 %; Lymphocytes # (auto) 1.11 K/uL (1.2-3.4); Lymphocytes % (auto) 17.6 %; Mean Corpuscular Hemoglobin 28.1 pg (25-34); Mean Corpuscular Volume 87.7 fL (80-100); Mean Platelet Volume 10.3 fL (7.4-10.4); Monocytes # (auto) 0.49 K/uL (0.11-0.59); Monocytes % (auto) 7.8 %; Neutrophils # (auto) 4.51 K/uL (1.4-6.5); Neutrophils % (auto) 71.2 %; Platelet Count 251 K/uL (130-400); RDW Coefficient of Variation 13.8 % (11.5-14.5); RDW Standard Deviation 44.1 fL (36.4-46.3); Red Blood Count 3.99 M/uL (4.2-5.4); White Blood Count 6.32 K/uL (4.8-10.8)
[2021-10-08] MEDS: INSULIN ASPART PER UNIT SC SCH ×4 (10:30→23:15)
[2021-10-08] MEDS: amLODIPine BESYLATE 5 MG TAB PO SCH (10:31)
[2021-10-08] MEDS: ASPIRIN 81 MG ECTAB PO SCH (10:31)
[2021-10-08] MEDS: cephALEXin 500 MG CAP PO SCH ×2 (10:32→22:50)
[2021-10-08] MEDS: cloNIDine HCL 0.1 MG TAB PO SCH ×2 (10:32→22:50)
[2021-10-08] MEDS: FENOFIBRATE NANOCRYSTALLIZED 145 MG TABLET PO SCH (10:33)
[2021-10-08] MEDS: ENOXAPARIN INJ 40 MG/0.4 ML SYR SQ SCH ×2 (10:33→22:50)
[2021-10-08] MEDS: POTASSIUM CHLORIDE 10 MEQ TABCR PO SCH (10:33)
[2021-10-08] MEDS: PANTOprazole 40 MG TAB PO SCH (10:33)
[2021-10-08] MEDS: TOLTERODINE TARTRATE LA 4 MG CAPCR PO SCH (10:34)
[2021-10-08] MEDS: VALSARTAN 80 MG TAB PO SCH ×2 (10:34→22:51)
[2021-10-08 10:40] LABS: Albumin Globulin Ratio 0.9 (0.9-2); Albumin Level 3.3 gm/dl (3.4-5.0); BUN Creatinine Ratio 15.2 (10-20); Bilirubin,Total 0.7 mg/dl (0.2-1.0); Calcium 8.5 mg/dl (8.5-10.1); Est GFR (African American) 120.1 ml/min; Est GFR (Non-African American) 103.7 ml/min; Globulin 3.6 gm/dl (2.5-4.0); Magnesium 2.2 mg/dl (1.7-2.4); Phosphorus 2.2 mg/dl (2.5-4.9); Potassium 3.6 mmol/L (3.5-5.1); Total Protein 6.9 gm/dl (6.0-8.3)
[2021-10-08] MEDS ORDERED: POTASSIUM PHOS 3 MMOL/1 ML INFUSION IV STA (11:12)
--- NOTE | 2021-10-08 11:29 | Hospitalist Progress Note ---
Date of Service October 08, 2021 Assessment & Plan (1) Pancreatitis: Plan: COVID-19 infection has been well-documented to cause acute pancreatitis thus her COVID infection is possible cause. Can't rule out Paxlovid she took prior to admission contributing. Can't rule out gallstone pancreatitis. Either way the Rx is same. Pain is ongoing but somewhat improved. Lipase back to normal Was tolerating full liquids LFTs normal MRCP without choledocholithiasis but does show narrowing of distal CBD which is thought to be extrinsic With associated ileus now resolved with laxatives Still requiring IV Dilaudid for pain--> perhaps more RUQ pain? Checking HIDA as per SUrgery Plan - * NPO for now for HIDA * continue pain meds with IV dilaudid and, po APAP and po tramadol * follow LFTs in AM * with respect to biliary disease/gallstones -was on hold due to COVID and pancreatitis but now getting HIDA scan and if positive, will pursue benito tomorrow Of note - highest triglyceride level in the past was low 200s thus doubt such contributing (2) COVID-19: Plan: SYmptoms started 09/28. Took 2-3 days of Paxlovid - now on hold. No indication for Remdesivir or Dexamethasone at this time. O2 sats remain wnl; no obvious pneumonia on imaging but at high risk of such. Cough is now resolved, headaches are resolved Now asymptomatic from COVID Continue airborne isolation. Flutter valve. Side positioning when sleeping. Low threshold for repeat chest imaging with any clinical worsening. COVID-19 infection could have caused pancreatitis (3) Gallstones: Plan: Known gallstones. Certainly could have caused pancreatitis u/s and MRCP without signs of acute cholecystitis. plan for lap benito here vs outpt based on HIDA today Trend LFTs. Appreciate gen surg recs. If any signs of developing acute cholecystitis then start broad spectrum IV antibiotic therapy. (4) Hypertensive urgency: Plan: Improved/resolved. Continue amlodipine 5 mg daily, clonidine 0.1 mg twice daily, and valsartan 80 mg twice daily. restart lasix (5) Elevated troponin: Plan: 2nd to myocardial demand ischemia in setting of pancreatitis and COVID HS trop only 52, then 49 No evidence of ACS. had a few bursts of atrial tach on tele-asymptomatic ok to transfer off tele (6) Hypertension: Plan: Continue amlodipine, clonidine, valsartan. restart lasix BPs improved (7) Type 2 diabetes mellitus: Plan: Novolog SSI. A1c noted (8.3%). Low threshold for basal insulin. (8) Gastroesophageal reflux disease: Plan: Continue PPI. (9) Hypercholesterolemia: Plan: Continue atorvastatin 80 mg, Tricor 145 mg daily. If AST or CPK remain high then hold both. (10) CAD (coronary artery disease): Plan: Past history: Cardiac cath 02/07/15: 30% early mid and 10-20% mid and distal LAD. 50-60% ostial diagonal. 10-20% ostial and 30% mid LCx. 30% ostial and prox OM. 20% ostial and prox and 10-20% mid and distal RCA. 0-10% PDA. Echo 12/2019: normal biventricular systolic function, mild LVH, grade 1 LV diastolic dysfunction, LV ejection fraction 65-70%, mild left atrial dilatation, no significant valvular abnormalities. [place] Dr. Gandara [place] [facility]. Continue statin, Tricor, BP meds, ASA. (11) Chronic edema: Plan: Edema is at baseline per patient today. Monitor. held lasix due to need for hydration for pancreatitis, but now with worsening LE edema--> restart lasix 20mg po daily (home dose) (12) Morbid obesity with BMI of 40.0-44.9, adult: Plan: BMI 41.7 Needs weight loss (13) Elevated AST (SGOT): Plan: Could be 2nd to COVID-19 infection. Could be 2nd to gallstones. CPK normal Now resolved (14) Thickened endometrium: Plan: noted as an addendum on CT abd/pel needs outpt pelvic US after recovery from hospitalization (15) DVT prophylaxis: Plan: lovenox 40mg BID (16) UTI (urinary tract infection): Plan: UA with epis but Ur cx growing E. coli continue on keflex x 7 day course through 10/14 (17) Hypomagnesemia: Plan: replaced - follow level (18) Hypokalemia: Plan: replace with Kphos and po KCl follow BMP (19) Hypophosphatemia: Plan: replace again today Plan: Dispo-continued stay but downgrade to med/surg, continue COVID isolation, possible lap benito tomorrow Admission and Anticipated Discharge Date Admission Date: October 04, 2021 Subjective Pt has had several large loose stools and does feel better with less abd distension. Oain in epigastric region is improved but was still taking IV dilaudid through th enight. No nausa and is actually feeling hungry. No CP or SOB, no cough. Is ambulating independently Tele with SB, SR, 1st degree AVB, rates 40-50s, no further PAT Review of Systems Review of Systems: All systems reviewed & are unremarkable except as noted in HPI & below Physical Exam Constitutional: WD/WN, vitals as above + obese Eyes: + anicteric sclerae Neck: trachea midline, no thyromegaly Respiratory: normal respiratory effort, lungs clear to auscultation Cardiovascular: Rate/Rhythm: regular rhythm and + bradycardic Heart Sounds: no murmur Extremities: + edema (2+ bilat legs to knees) Chest (Breasts): Chest: normal inspection of chest Gastrointestinal (Abdomen): Inspection/Auscultation: abdomen normal to inspection, + abdomen distended (mild) and normal bowel sounds Percussion/Palpation: + abdomen tender (epigastric mild, no guarding or rebound) and abdomen soft Musculoskeletal: Extremities: extremities normal to inspection; no cyanosis and no clubbing Skin: no rashes, warm and dry Neurologic: moves all extremities and awake; no focal motor deficits Psychiatric: A+Ox3, euthymic affect Results & Data Results & Data ([facility]) Vital Signs (Past 12 Hours) Vital Signs Temp Pulse Resp BP Pulse Ox 10/08/21 08:05 36.8 C 86 18 137/81 93 10/08/21 04:22 36.8 C 47 L 18 121/70 94 Laboratory Results 10/08/21 10/08/21 10/08/21 Range/Units 08:05 08:05 08:00 WBC 6.32 (4.8-10.8) K/uL RBC 3.99 L (4.2-5.4) M/uL Hgb 11.2 L (12.0-16.0) g/dL Hct 35.0 L (37-47) % MCV 87.7 (80-100) fL MCH 28.1 (25-34) pg MCHC 32.0 (32-36) g/dL RDW Std Deviation 44.1 (36.4-46.3) fL RDW Coeff of Jonas 13.8 (11.5-14.5) % Plt Count 251 (130-400) K/uL MPV 10.3 (7.4-10.4) fL Immature Gran % (Auto) 0.5 % Neut % (Auto) 71.2 % Lymph % (Auto) 17.6 % [place] % (Auto) 7.8 % Eos % (Auto) 2.7 % Baso % (Auto) 0.2 % Neut # (Auto) 4.51 (1.4-6.5) K/uL Lymph # (Auto) 1.11 L (1.2-3.4) K/uL [place] # (Auto) 0.49 (0.11-0.59) K/uL Eos # (Auto) 0.17 (0-0.5) K/uL Baso # (Auto) 0.01 (0-0.2) K/uL Immature Gran # (Auto) 0.03 H (0.00-0.02) K/uL Sodium 137 (136-145) mmol/L Potassium 3.6 (3.5-5.1) mmol/L Chloride 104 (98-107) mmol/L Carbon Dioxide 26 (21-32) mmol/L Anion Gap 7 (3-11) BUN 7 (6-23) mg/dl Creatinine 0.46 L (0.6-1.2) mg/dl Est Cr Clr Drug Dosing 165.0 ml/min Est GFR ( Amer) 120.1 ml/min Est GFR (Non-Af Amer) 103.7 ml/min BUN/Creatinine Ratio 15.2 (10-20) Glucose 148 H (70-99(Fasting)) mg/dl POC Glucose 148 H (70-99) mg/dl Calcium 8.5 (8.5-10.1) mg/dl Phosphorus 2.2 L (2.5-4.9) mg/dl Magnesium 2.2 (1.7-2.4) mg/dl Total Bilirubin 0.7 (0.2-1.0) mg/dl AST 15 (13-39) U/L ALT 24 (7-52) U/L Alkaline Phosphatase 43 (34-104) U/L Total Protein 6.9 (6.0-8.3) gm/dl Albumin 3.3 L (3.4-5.0) gm/dl Globulin 3.6 (2.5-4.0) gm/dl Albumin/Globulin Ratio 0.9 (0.9-2) 10/07/21 10/07/21 10/07/21 Range/Units 20:16 17:05 11:58 WBC (4.8-10.8) K/uL RBC (4.2-5.4) M/uL Hgb (12.0-16.0) g/dL Hct (37-47) % MCV (80-100) fL MCH (25-34) pg MCHC (32-36) g/dL RDW Std Deviation (36.4-46.3) fL RDW Coeff of Jonas (11.5-14.5) % Plt Count (130-400) K/uL MPV (7.4-10.4) fL Immature Gran % (Auto) % Neut % (Auto) % Lymph % (Auto) % [place] % (Auto) % Eos % (Auto) % Baso % (Auto) % Neut # (Auto) (1.4-6.5) K/uL Lymph # (Auto) (1.2-3.4) K/uL [place] # (Auto) (0.11-0.59) K/uL Eos # (Auto) (0-0.5) K/uL Baso # (Auto) (0-0.2) K/uL Immature Gran # (Auto) (0.00-0.02) K/uL Sodium (136-145) mmol/L Potassium (3.5-5.1) mmol/L Chloride (98-107) mmol/L Carbon Dioxide (21-32) mmol/L Anion Gap (3-11) BUN (6-23) mg/dl Creatinine (0.6-1.2) mg/dl Est Cr Clr Drug Dosing ml/min Est GFR ( Amer) ml/min Est GFR (Non-Af Amer) ml/min BUN/Creatinine Ratio (10-20) Glucose (70-99(Fasting)) mg/dl POC Glucose 183 H 148 H 157 H (70-99) mg/dl Calcium (8.5-10.1) mg/dl Phosphorus (2.5-4.9) mg/dl Magnesium (1.7-2.4) mg/dl Total Bilirubin (0.2-1.0) mg/dl AST (13-39) U/L ALT (7-52) U/L Alkaline Phosphatase (34-104) U/L Total Protein (6.0-8.3) gm/dl Albumin (3.4-5.0) gm/dl Globulin (2.5-4.0) gm/dl Albumin/Globulin Ratio (0.9-2) PG Care Time/CCT Total # of Minutes Spent Total Time Spent with Patient: Total time spent is greater than 50% in coordination of care (as documented) at patient's floor/unit and/or counseling patient: Coding Level of Care Code 09121 Subseq Hosp Care Lvl 3 Diagnoses Pancreatitis K85.90 COVID-19 U07.1 Gallstones K80.20 Hypertensive urgency I16.0 Elevated troponin R77.8 Hypertension I10 Type 2 diabetes mellitus E11.9 Gastroesophageal reflux disease K21.9 Hypercholesterolemia E78.00 CAD (coronary artery disease) I25.10 Chronic edema R60.9 Morbid obesity with BMI of 40.0-44.9, adult E66.01; Z68.41 Elevated AST (SGOT) R74.01 Thickened endometrium R93.89 DVT prophylaxis Z29.9 UTI (urinary tract infection) N39.0 Hypomagnesemia E83.42 Hypokalemia E87.6 Hypophosphatemia E83.39
[2021-10-08] MEDS: FUROSEMIDE 20 MG TAB PO SCH (13:19)
[2021-10-08] MEDS: POTASSIUM PHOSPHATE 15 MMOL in SODIUM CHLORIDE 0.9% 250 ML IV ONE ×2 (13:19→16:23)
[2021-10-08] MEDS: traMADol HCL 50 MG TABLET PO PRN ×2 (17:58→22:51)
[2021-10-08] MEDS: POT PHOSPHATE MONOBASIC W/ SOD TAB PO SCH ×2 (18:03→22:50)
[2021-10-08] MEDS: ATORVASTATIN 40 MG TAB PO SCH (22:49)
[2021-10-09 08:14] LABS: Basophils # (auto) 0.01 K/uL (0-0.2); Basophils % (auto) 0.2 %; Eosinophils % (auto) 3.3 %; Hematocrit (blood only) 33.7 % (37-47); Hemoglobin 10.9 g/dL (12.0-16.0); Immature Granulocytes # (auto) 0.02 K/uL (0.00-0.02); Immature Granulocytes % (auto) 0.3 %; Lymphocytes # (auto) 1.23 K/uL (1.2-3.4); Lymphocytes % (auto) 20.5 %; Mean Corpuscular Hemoglobin 28.5 pg (25-34); Mean Corpuscular Hgb Conc 32.3 g/dL (32-36); Mean Corpuscular Volume 88.2 fL (80-100); Mean Platelet Volume 10.3 fL (7.4-10.4); Monocytes # (auto) 0.57 K/uL (0.11-0.59); Monocytes % (auto) 9.5 %; Neutrophils # (auto) 3.98 K/uL (1.4-6.5); Neutrophils % (auto) 66.2 %; Platelet Count 296 K/uL (130-400); RDW Coefficient of Variation 13.6 % (11.5-14.5); Red Blood Count 3.82 M/uL (4.2-5.4); White Blood Count 6.01 K/uL (4.8-10.8)
[2021-10-09 08:36] LABS: Albumin Globulin Ratio 0.9 (0.9-2); Albumin Level 3.2 gm/dl (3.4-5.0); Bilirubin,Total 0.5 mg/dl (0.2-1.0); Calcium 8.4 mg/dl (8.5-10.1); Creatinine Clr Calc Pharmacy 153.4 ml/min; Est GFR (African American) 116.9 ml/min; Est GFR (Non-African American) 100.9 ml/min; Globulin 3.5 gm/dl (2.5-4.0); Phosphorus 2.9 mg/dl (2.5-4.9); Potassium 3.4 mmol/L (3.5-5.1); Total Protein 6.7 gm/dl (6.0-8.3)
[2021-10-09] MEDS: POT PHOSPHATE MONOBASIC W/ SOD TAB PO SCH ×2 (08:49→12:39)
[2021-10-09] MEDS: guaiFENesin 600 MG TABCR PO PRN (08:49)
[2021-10-09] MEDS: PANTOprazole 40 MG TAB PO SCH (08:49)
[2021-10-09] MEDS: cloNIDine HCL 0.1 MG TAB PO SCH (08:49)
[2021-10-09] MEDS: FUROSEMIDE 20 MG TAB PO SCH (08:50)
[2021-10-09] MEDS: VALSARTAN 80 MG TAB PO SCH (08:50)
[2021-10-09] MEDS: POTASSIUM CHLORIDE 10 MEQ TABCR PO SCH (08:50)
[2021-10-09] MEDS: TOLTERODINE TARTRATE LA 4 MG CAPCR PO SCH (08:50)
[2021-10-09] MEDS: cephALEXin 500 MG CAP PO SCH (08:51)
[2021-10-09] MEDS: ASPIRIN 81 MG ECTAB PO SCH (08:51)
[2021-10-09] MEDS: FENOFIBRATE NANOCRYSTALLIZED 145 MG TABLET PO SCH (08:51)
[2021-10-09] MEDS: amLODIPine BESYLATE 5 MG TAB PO SCH (08:51)
[2021-10-09] MEDS: ENOXAPARIN INJ 40 MG/0.4 ML SYR SQ SCH (08:51)
[2021-10-09] MEDS: INSULIN ASPART PER UNIT SC SCH ×2 (08:56→12:35)
[2021-10-09] MEDS ORDERED: POTASSIUM CHLORIDE CRTAB 20 MEQ TABCR PO STA (09:23)
--- NOTE | 2021-10-09 11:23 | Surgery Consultation ---
Date of Consultation October 09, 2021 Assessment & Plan (1) Gallstones: Patient is stable from the standpoint of her gallbladder She could have had gallstone pancreatitis We believe she has had symptoms of biliary colic in the past We will try to schedule her for next week for laparoscopic cholecystectomy And call her early in the week to give her final details History of Present Illness Attending Physician: Libby Florez MD History of Present Illness Patient appears to be doing well without evidence of acute cholecystitis Allergies Allergy/AdvReac Type Severity Reaction Status Date / Time Sulfa (Sulfonamide Allergy Intermediate Hives Verified 10/04/21 15:58 Antibiotics) cortisone AdvReac Intermediate Hypertensio Verified 10/04/21 15:58 n prednisone AdvReac Intermediate Elevated BP Verified 10/04/21 15:58 Home Medications Medication Instructions Recorded Confirmed Type aspirin 81 mg tablet,delayed 81 mg PO QAM 11/17/18 10/04/21 History release (Adult Low Dose Aspirin) fluticasone propionate 50 2 sprays INTNAS DAILY PRN #54.6 ml 10/24/19 10/04/21 Rx mcg/actuation nasal spray,suspension (Flonase Allergy Relief) acetaminophen 325 mg capsule 325 mg PO Q4H PRN 01/01/20 10/04/21 History (Tylenol) clemastine 2.68 mg tablet 2.68 mg PO BID PRN #180 tab 02/16/21 10/04/21 Rx furosemide 20 mg tablet 20 mg PO QAM #90 tab 03/24/21 10/04/21 Rx valsartan 80 mg tablet (Diovan) 80 mg PO BID #180 tab 04/27/21 10/04/21 Rx omeprazole 40 mg capsule,delayed 40 mg PO QAM #90 cap 05/27/21 10/04/21 Rx release tolterodine 4 mg capsule,extended 4 mg PO QAM #90 cap 06/25/21 10/04/21 Rx release 24 hr clonidine HCl 0.1 mg tablet 0.1 mg PO BID #180 tab 08/03/21 10/04/21 Rx metformin 1,000 mg tablet,extended 1,000 mg PO BID #60 tab 08/31/21 10/04/21 Rx release 24hr amlodipine 5 mg tablet (Norvasc) 5 mg PO QAM #90 tab 09/15/21 10/04/21 Rx atorvastatin 80 mg tablet 80 mg PO HS 09/24/21 10/04/21 History benzonatate 100 mg capsule 100 mg PO TID PRN #30 cap 10/02/21 10/04/21 Rx nirmatrelvir 300 mg (150 mg x See Rx Instructions PO .COMPLEX 10/02/21 10/04/21 Rx 2)-ritonavir 100 mg tablet (EUA) #30 tab (Paxlovid 300 mg () fenofibrate nanocrystallized 145 145 mg PO DAILY 10/04/21 10/04/21 History mg tablet potassium chloride 10 mEq 10 meq PO QAM 10/04/21 10/04/21 History tablet,extended release Patient History Medical History CAD (coronary artery disease) Moderate CAD per 2015 cardiac cath-F/U DR PADMINI SMART Mild to moderate CAD (nonobstructive) per cardio records Carpal tunnel syndrome Dyspnea on effort Due to deconditioning per patient Gastroesophageal reflux disease Controlled History of Lyme disease 2014 Hypercholesterolemia Hypertension (BP during procedure 12/2019 went up to 265/156- case was cancelled and pt admitted to [facility]) -No significant issues noted with 01/2020 right shoulder surgery Lung collapse - 01/10/20 during procedure (right shoulder arthroscopy, RCR) at [facility] > was result of nerve block. Hospitalized for 3 days> Resolved (No mention of this in discharge summary- pt had dyspnea when laying flat after nerve block placed but CXR showed no issues with diaphragm). 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 "benign" Morbid obesity Stress incontinence Stroke "Stress induced" at age 39-NO ISSUES SINCE-SOME WEAKNESS RIGHT ARM REMAINS Type 2 diabetes mellitus NIDDM Surgical History H/O lateral meniscus repair of right knee History of cardiac cath 2014 ([facility])- no stents History of colonoscopy 2018 History of dental surgery tooth replacement but since rejected and removed History of tubal ligation Hx of umbilical hernia repair x2 S/P complete repair of rotator cuff Superior capsular reconstruction February 2020- and bicep Family History Father Hypertension Myocardial infarction Lung cancer Diabetes Heart disease Cancer Sister Multiple sclerosis Mother Ovarian cancer Diabetes Cancer Heart disease Stroke Denies family history of Prostate cancer Breast cancer Colorectal cancer Social History Smoking Status: Never smoker Second Hand Exposure: Yes (FATHER SMOKED); Hx Alcohol Use: No Hx Substance Use: No Preferred Language: Fijian Communication Ability: Effective Visual Impairment: No Limitations Hearing Ability: Normal Bakery Demonstrator Required: No Beliefs That Will Affect Care: None marital status: Current Living Situation: Spouse Current Living Situation Comment: [facility] current occupational status: retired How many Children do You have: 2 Feels Safe at Home: Yes Safety Concerns: Feels Safe At This Time Childhood Exposure to Second-Hand Smoke: Yes during the past year weight has: remained stable Dental Care, Regularly: No Physical Activity Frequency: Does not Exercise Seatbelt Use: always Sunscreen Use: Yes Assistive Devices: None Review of Systems Review of Systems: All systems reviewed & are unremarkable except as noted in HPI & below Physical Exam Physical Exam: Sitting in her room very anxious as she wants to go home Constitutional: well developed; no acute distress Eyes: + anicteric sclerae Respiratory: normal respiratory effort; no respiratory distress Cardiovascular: Rate/Rhythm: regular rate Gastrointestinal (Abdomen): Inspection/Auscultation: abdomen not distended Musculoskeletal: Head/Neck/Chest: head atraumatic Skin: no rashes, warm and dry Neurologic: awake Psychiatric: Orientation: alert Results & Data ([facility]) Vital Signs (Past 12 Hours) Vital Signs Temp Pulse Resp BP BP Pulse Ox 10/09/21 08:50 102/52 L 10/09/21 08:14 37.3 C 53 L 18 95/55 L 93 10/09/21 03:50 36.4 C L 58 L 18 135/66 95 PG Care Time/CCT Total # of Minutes Spent Total Time Spent with Patient: Total time spent is greater than 50% in coordination of care (as documented) at patient's floor/unit and/or counseling patient: Coding Level of Care Code 95763 Initial Inpt Care Lvl 2 Diagnoses Gallstones K80.20
--- NOTE | 2021-10-09 15:12 | Discharge Summary ---
Date of Service October 09, 2021 Admission HPI Per Admitting Provider Mrs. Loredo is a 66 y/o female with PMH significant for CAD, hypertension, hyperlipidemia, diabetes, GERD, and diagnosed with COVID 19 infection 2 days ago, 10/02 who presents today with abdominal pain since this morning. Patient had cereal and coffee for breakfast and about an hour later began to experience abdominal pain that started centrally and radiates throughout. She is also very nauseous, but has not vomited. She has a history of right upper quadrant pain, was to undergo laparoscopic cholecystectomy tomorrow, 10/05 however she tested positive on a preoperative COVID test , 10/01. Patient did began experiencing symptoms on Tuesday of this past week, noting sinus congestion, headache, cough, and diffuse body aches and mild shortness of breath. She received her initial Pfizer 2 dose series vaccine, first in July 2021 and second last month in August. In ED, she is hypertensive 216/108, heart rate 48, afebrile and SPO2 greater than 95% on room air. Labs significant for lipase 1501, HS troponin 52.8, repeat 49.8. AST 42, glucose 122. CXR without evidence of pneumonia, edema, or effusions. Gallbladder ultrasound showed a few small stones and sludge within the gallbladder as well as hepatomegaly demonstrating fatty change. Patient received 1L NSS, Zofran, morphine, Dilaudid in ED and hospitalist service consulted for further evaluation and admission. Principal Diagnosis Acute pancreatitis, symptomatic cholelithiasis, COVID-19, UTI, ileus Discharge Exam Constitutional WD/WN, vitals as above + obese Eyes + anicteric sclerae Neck trachea midline, no thyromegaly Respiratory normal respiratory effort, lungs clear to auscultation Cardiovascular Rate/Rhythm: regular rhythm and + bradycardic Heart Sounds: no murmur Extremities: + edema (2+ bilat legs to knees) Chest (Breasts) Chest: normal inspection of chest Gastrointestinal (Abdomen) Inspection/Auscultation: abdomen normal to inspection, + abdomen distended (mild) and normal bowel sounds Percussion/Palpation: abdomen soft; abdomen nontender Musculoskeletal Extremities: extremities normal to inspection; no cyanosis and no clubbing Skin no rashes, warm and dry Neurologic moves all extremities and awake; no focal motor deficits Psychiatric A+Ox3, euthymic affect Lymphatic no lymphedema Discharge Data Allergies Allergy/AdvReac Type Severity Reaction Status Date / Time Sulfa (Sulfonamide Allergy Intermediate Hives Verified 10/04/21 15:58 Antibiotics) cortisone AdvReac Intermediate Hypertensio Verified 10/04/21 15:58 n prednisone AdvReac Intermediate Elevated BP Verified 10/04/21 15:58 Consultations 10/04/21 17:22 ED Decision to Admit Stat 10/04/21 21:59 Consult Gastroenterology Routine 10/06/21 16:23 Consult General Surgery Routine Ordered Studies 10/04/21 15:54 US gallbladder Stat 10/04/21 17:28 MR MRCP Stat Hospital Course (1) Pancreatitis: COVID-19 infection has been well-documented to cause acute pancreatitis thus her COVID infection is possible cause. Can't rule out Paxlovid she took prior to admission contributing. Can't rule out gallstone pancreatitis. Of note - highest triglyceride level in the past was low 200s thus doubt such contributing Either way the Rx is same. Pain is improved. Lipase back to normal Is tolerating low fat diet LFTs normal MRCP without choledocholithiasis but does show narrowing of distal CBD which is thought to be extrinsic With associated ileus now resolved with laxatives Now that pain is improved/controlled with Tylenol alone, Surgery feels ok to go home and come back for lap benito next week once recovered from COVID Advised no EtOH which she doesn't drink anyway (2) COVID-19: SYmptoms started 09/28. Took 2-3 days of Paxlovid - now stopped No indication for Remdesivir or Dexamethasone at this time. O2 sats remain wnl; no obvious pneumonia on imaging but at high risk of such. Cough is now resolved, headaches are resolved Now asymptomatic from COVID Flutter valve. tessalon perles prn (3) Gallstones: Known gallstones. Certainly could have caused pancreatitis u/s and MRCP without signs of acute cholecystitis. LFTs normal plan for lap benito as outpt next week appreciate Surgery consultation (4) Hypertensive urgency: Improved/resolved. Continue amlodipine 5 mg daily, clonidine 0.1 mg twice daily, lasix,and valsartan 80 mg twice daily. (5) Elevated troponin: 2nd to myocardial demand ischemia in setting of pancreatitis and COVID HS trop only 52, then 49 No evidence of ACS. had a few bursts of atrial tach on tele-asymptomatic (6) Hypertension: Continue amlodipine, clonidine, valsartan, lasix BPs improved (7) Type 2 diabetes mellitus: Novolog SSI given here A1c noted (8.3%). restart home metformin would benefit from weight loss and a second med for DM-defer to PCP (8) Gastroesophageal reflux disease: Continue PPI. (9) Hypercholesterolemia: Continue atorvastatin 80 mg, Tricor 145 mg daily. (10) CAD (coronary artery disease): Past history: Cardiac cath 02/07/15: 30% early mid and 10-20% mid and distal LAD. 50-60% ostial diagonal. 10-20% ostial and 30% mid LCx. 30% ostial and prox OM. 20% ostial and prox and 10-20% mid and distal RCA. 0-10% PDA. Echo 12/2019: normal biventricular systolic function, mild LVH, grade 1 LV diastolic dysfunction, LV ejection fraction 65-70%, mild left atrial dilatation, no significant valvular abnormalities. Follows with Dr. Gandara - [facility] [place] Cardiology. Continue statin, Tricor, BP meds, ASA. (11) Chronic edema: Edema is at baseline per patient today. Monitor. held lasix due to need for hydration for pancreatitis, but then with worsening LE edema--> restarted lasix 20mg po daily (home dose) (12) Morbid obesity with BMI of 40.0-44.9, adult: BMI 43 Needs weight loss (13) Elevated AST (SGOT): Could be 2nd to COVID-19 infection. Could be 2nd to gallstones. CPK normal Now resolved (14) Thickened endometrium: noted as an addendum on CT abd/pel needs outpt pelvic US after recovery from hospitalization-notified patient of such (15) UTI (urinary tract infection): UA with epis but Ur cx growing E. coli continue on keflex x 7 day course through 10/14 (16) Hypomagnesemia: replaced (17) Hypokalemia: replaced (18) Hypophosphatemia: replaced (19) DVT prophylaxis: lovenox 40mg BID Dispo-dc to home Total Time Total Time Spent Total Time Spent (In Minutes): 40 min Total Time Includes: Examination of the Patient, Discharge Planning, Medication Reconciliation and Communication With Other Providers (Surgery) Discharge Plan Discharge Items Patient Disposition: Home - Self-Care Reason For Visit: PANCREATITIS W/SYMPTOMATIC COVID INFECTION Discharge Diagnosis: Pancreatitis, COVID-19, Symptomatic cholelithiasis, ileus, UTI Condition on Discharge: Good Activity: Resume your previous activity Non-emergency contact: Primary Care Provider and Surgeon Call non-emergency contact if: you have any medication questions, your symptoms worsen, your pain is not controlled, your pain is worsening, your pain is concerning for you and you have a fever Follow-up/Referrals: Christian Morris MD, FACS [Physician] - 10/16/21 9:00 am (General Surgery, post surgical follow up.) Gonzalo Torres, [Primary Care Provider] - (Follow up within 1-2 weeks) Diet: Carb Consistent or DM2 and Low Fat Addtl Attending Provider Instructions: You were admitted for pancreatitis which may have been caused by COVID-19 or perhaps your gallbladder disease. You had improvement and will be discharged to home. You will be contacted regarding the time and date of your gallbladder surgery. You can continue to take Tylenol and spare use of Advil as needed for pain. As for your COVID-19, you had very mild disease and did not require any treatment for this. If you develop worsening shortness of breath, chest pains, leg swelling, or any other acute concern, please return to the ER. Please finish out 5 more days of antibiotics for your UTI. You also incidentally were found to have some thickening of the lining of your uterus (your womb). Please follow up with your PCP or SENIOR TELECOMMUNICATIONS TECHNICIAN to have a pelvic ultrasound done as an outpatient to further evaluate this. Pending Studies at Discharge: No Stand-Alone Forms: [employer], Smoking Cessation Medications and DC Order Prescriptions: New cephalexin 500 mg Capsule 500 mg PO BID Qty: 10 RF: 0 Continued fluticasone propionate [Flonase Allergy Relief] 50 mcg/actuation spray,suspension 2 sprays INTNAS DAILY PRN (Reason: nasal congestion) Qty: 54.6 RF: 2 clemastine 2.68 mg tablet 2.68 mg PO BID PRN (Reason: allergy symptoms) Qty: 180 RF: 1 furosemide 20 mg tablet 20 mg PO QAM Qty: 90 RF: 1 valsartan [Diovan] 80 mg tablet 80 mg PO BID Qty: 180 RF: 1 omeprazole 40 mg capsule,delayed release(DR/EC) 40 mg PO QAM Qty: 90 RF: 1 tolterodine 4 mg capsule,extended release 24hr 4 mg PO QAM Qty: 90 RF: 1 clonidine HCl 0.1 mg tablet 0.1 mg PO BID Qty: 180 RF: 1 amlodipine [Norvasc] 5 mg tablet 5 mg PO QAM Qty: 90 RF: 1 aspirin [Adult Low Dose Aspirin] 81 mg tablet,delayed release (DR/EC) 81 mg PO QAM RF: 0 metformin 1,000 mg tablet extended release 24hr 1,000 mg PO BID Qty: 60 RF: 3 benzonatate 100 mg capsule 100 mg PO TID PRN (Reason: cough) Qty: 30 RF: 0 atorvastatin 80 mg tablet 80 mg PO HS RF: 0 potassium chloride 10 mEq tablet extended release 10 meq PO QAM RF: 0 fenofibrate nanocrystallized 145 mg tablet 145 mg PO DAILY RF: 0 Changed acetaminophen [Tylenol] 325 mg Capsule 650 mg PO Q4H PRN (Reason: pain) Qty: 0 RF: 0 Discontinued Paxlovid (EUA) 150 mg x 2- 100 mg tablet See Rx Instructions PO .COMPLEX Qty: 30 RF: 0 Discharge Orders: Discharge Order (Routine); Ordered 10/09/21 Ordered By: Libby Mcclendon/Other Patient Handouts: Managing Type 2 Diabetes Admission Data Admit Date/Time: 10/04/21 18:57 Attending Provider: Libby Florez Admit Provider: Tung Medrano Primary Care Provider: Gonzalo Torres Other Providers: Tung Medrano ; Jaleel Jaime ; Christian Morris Coding Level of Care Code D/C DAY MANAGEMENT >30 MINS Diagnoses Pancreatitis K85.90 COVID-19 U07.1 Gallstones K80.20 Hypertensive urgency I16.0 Elevated troponin R77.8 Hypertension I10 Type 2 diabetes mellitus E11.9 Gastroesophageal reflux disease K21.9 Hypercholesterolemia E78.00 CAD (coronary artery disease) I25.10 Chronic edema R60.9 Morbid obesity with BMI of 40.0-44.9, adult E66.01; Z68.41 Elevated AST (SGOT) R74.01 Thickened endometrium R93.89 DVT prophylaxis Z29.9 UTI (urinary tract infection) N39.0 Hypomagnesemia E83.42 Hypokalemia E87.6 Hypophosphatemia E83.39
== END 2021-10-09 16:22 | disposition home or self-care (01) | DRG 177 ==
LOC: ED 14:13 → 2W 18:10 → SUATTDRO 18:10 → 2W 23:10

== ENCOUNTER 2021-10-15 05:39 | Observation (INO) ==
--- NOTE | 2021-09-24 10:41 | Anesthesiology Consultation ---
Date of Service September 24, 2021 Assessment & Plan (1) Encounter for pre-operative examination: Chart Review Chart Review: Acceptable Risk for Surgery (pending preop Covid testing results ) and Patient NOT seen in Pre Admission Testing - Check BSG AM DOS Per nursing assessment 09/24/2021, pt resides in [facility]. Has traveled to [facility] to shop in the past 30 days. Wears mask in large crowds. No known Covid positive exposures or Covid related symptoms. No known Covid infection in the past 90 days. Pt is fully vaccinated for Covid. Preop Covid testing scheduled 10/01/21= will await results. Patient seen by cardiology 09/23/2021 = seen for preoperative cardiovascular examination. "She is currently stable and asymptomatic from a cardiovascular sta ndpoint with no anginal symptoms occurring at >4 METS of activity. She has no evidence of CHF or significant valvular abnormality. BP is reasonably well controlled. Given this information, patient is at an acceptable risk to proceed with upcoming surgery without any additional cardiovascular testing or intervention." Right shoulder arthroscopy, biceps tendon repair 02/07/2020 = done under [facility] with grade 1 view with MAC #3. ETT #7.5. No anesthesia issues noted per anesthesia record. (Did NOT have PNB per records- patient and PCP feel PNB in 12/2019 is cause of HTN emergency) History Surgery Operation Date: 10/05/21 08:40 Proposed Procedures p Laparoscopic Cholecystectomy - Christian Morris MD, FACS Height/Weight Height: 5 ft 6 in Weight: 122.47 kg Allergies Allergy/AdvReac Type Severity Reaction Status Date / Time cortisone Allergy Unknown Hypertensio Verified 09/24/21 08:54 n prednisone Allergy Unknown Elevated BP Verified 09/24/21 08:54 Sulfa (Sulfonamide Allergy Unknown Hives Verified 09/24/21 08:54 Antibiotics) Medications Home Medications Medication Instructions Recorded Confirmed Last Taken aspirin 81 mg tablet,delayed 81 mg PO QAM 11/17/18 09/24/21 02/06/20 08:00 release (Adult Low Dose Aspirin) fluticasone propionate 50 2 sprays INTNAS DAILY PRN #54.6 ml 10/24/19 09/24/21 Unknown mcg/actuation nasal spray,suspension (Flonase Allergy Relief) varicella-zoster glycoE [id number] 0.5 ml IM .COMPLEX #1 ea 11/26/19 09/24/21 12/27/19 12:00 adj(PF) 50 mcg/0.5 mL IM susp, kit (Shingrix (PF)) acetaminophen 325 mg capsule 325 mg PO Q4H PRN 01/01/20 09/24/21 02/07/20 02:30 (Tylenol) clemastine 2.68 mg tablet 2.68 mg PO BID PRN #180 tab 02/16/21 09/24/21 Unknown fenofibrate nanocrystallized 145 See Rx Instructions .ROUTE 03/10/21 09/24/21 Unknown mg tablet .COMPLEX #90 tablet potassium chloride 10 mEq See Rx Instructions .ROUTE 03/10/21 09/24/21 Unknown tablet,extended release .COMPLEX #90 tab furosemide 20 mg tablet 20 mg PO QAM #90 tab 03/24/21 09/24/21 Unknown valsartan 80 mg tablet (Diovan) 80 mg PO BID #180 tab 04/27/21 09/24/21 Unknown omeprazole 40 mg capsule,delayed 40 mg PO QAM #90 cap 05/27/21 09/24/21 Unknown release tolterodine 4 mg capsule,extended 4 mg PO QAM #90 cap 06/25/21 09/24/21 Unknown release 24 hr clonidine HCl 0.1 mg tablet 0.1 mg PO BID #180 tab 08/03/21 09/24/21 Unknown metformin 1,000 mg tablet,extended 1,000 mg PO BID #60 tab 08/31/21 09/24/21 Unknown release 24hr amlodipine 5 mg tablet (Norvasc) 5 mg PO QAM #90 tab 09/15/21 09/24/21 Unknown atorvastatin 80 mg tablet 80 mg PO QAM 09/24/21 09/24/21 Unknown Past Medical History Medical History (Updated 09/24/21 @ 11:25 by Lela Barroso PA-C) CAD (coronary artery disease) Moderate CAD per 2015 cardiac cath-F/U DR PADMINI SMART Mild to moderate CAD (nonobstructive) per cardio records Carpal tunnel syndrome Dyspnea on effort Due to deconditioning per patient Gastroesophageal reflux disease Controlled History of Lyme disease 2014 Hypercholesterolemia Hypertension (BP during procedure 12/2019 went up to 265/156- case was cancelled and pt admitted to [facility]) -No significant issues noted with 01/2020 right shoulder surgery Lung collapse - 01/10/20 during procedure (right shoulder arthroscopy, RCR) at [facility] > was result of nerve block. Hospitalized for 3 days> Resolved (No mention of this in discharge summary- pt had dyspnea when laying flat after nerve block placed but CXR showed no issues with diaphragm). 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 "benign" Morbid obesity Stress incontinence Stroke "Stress induced" at age 39-NO ISSUES SINCE-SOME WEAKNESS RIGHT ARM REMAINS Type 2 diabetes mellitus NIDDM Past Family History Family History Father Hypertension Myocardial infarction Lung cancer Diabetes Heart disease Cancer Sister Multiple sclerosis Mother Ovarian cancer Diabetes Cancer Heart disease Stroke Denies family history of Prostate cancer Breast cancer Colorectal cancer Past Surgical History Surgical History H/O lateral meniscus repair of right knee History of cardiac cath 2014 ([facility])- no stents History of colonoscopy 2018 History of dental surgery tooth replacement but since rejected and removed History of tubal ligation Hx of umbilical hernia repair x2 S/P complete repair of rotator cuff Superior capsular reconstruction February 2020- and bicep Social History Smoking Status: Never smoker Do You Dip or Chew Tobacco: No Hx Alcohol Use: No Hx Substance Use: No substance use type: does not use Lab Results Anesthesia Preop Results Results Anesthesia Widget: WBC 6.42 K/uL (4.8-10.8) 09/18/21 Hgb 13.5 g/dL (12.0-16.0) 09/18/21 Hct 42.4 % (37-47) 09/18/21 Plt 306 K/uL (130-400) 09/18/21 Na 138 mmol/L (136-145) 09/18/21 K 4.2 mmol/L (3.5-5.1) 09/18/21 Cl 101 mmol/L (98-107) 09/18/21 CO2 29 mmol/L (21-32) 09/18/21 BUN 20 mg/dl (6-23) 09/18/21 Creat 0.70 mg/dl (0.6-1.2) 09/18/21 Glucose Level 164 mg/dl (70-99(Fasting)) H 09/18/21 HA1c 8.3 % (4.5-5.6) H 08/25/21 Testing Laboratory Results PCP aware of Hgb A1C results per 08/31/21 PCP note- Meformin increased- repeat A1C in 3 months Electrocardiogram Date: 03/02/21 Sinus arrhythmia with 1st degree AVB at 80bpm Lateral ST-T changes may be due to myocardia ischemia "1st degree AVB. No new ST/T wave changes since 2019" per confirming provider "EKG 03/02/21 with sinus rhythm, first-degree AV block with OH interval 246ms, ST depressions and T inversions leads 1, aVL. Compared to EKG from January 10, 2020 no significant change" per cardio note 09/23/21 Echocardiogram Date: 01/11/20 EF: 65-70% LV Function:normal RWMA:+ none Other Findings:+ LVH (Mild/concentric) Compared with study dated 02/07/2015, no significant change. Left atrium mildly dilated. Grade 1 diastolic dysfunction. Cardiac Catheterization Date:02/07/15 Coronary Anatomy Dominant: Right Left Main (% Stenosis): Normal LAD (% Stenosis): Mid (30), Distal (10-20) D1 (% Stenosis): Normal (Very small caliber vessel) D2 (% Stenosis): Ostial (50-60) Circumflex (% Stenosis): Ostial (10-20), Mid (30) OM1 (% Stenosis): Ostial (30) RCA (% Stenosis): Ostial (20), Proximal (20), Mid (10-20), Distal (10-20) R PDA (% Stenosis): Proximal (0-10) R PL1 (% Stenosis): Normal R PL2 (% Stenosis): Normal Left Ventricular Angiography EF (%): 65 Wall Motion: Inferior (Normal), Apical (Normal), Anterior (Normal) Mitral Regurgitation: None Post-procedure diagnosis: Moderate CAD-- medical therapy rec'd.
--- NOTE | 2021-10-15 04:28 | History & Physical Bridge Note ---
Date of Service October 15, 2021 History & Physical Bridge Note I have examined the patient, reviewed the History & Physical and in the interval since the performance of the History & Physical I have noted the following changes of clinical significance: no changes noted
[~2021-10-15 05:39] MED LIST changes: -CLEM2.68 PO; -CTP/1 PO; -FURO-85 PO; -IMDSR/30 PO; -LEVO-371 PO; -LPT40 PO; +LR 15ML/HR IV SCH; -LSN5 PO; -NTRGSL/4 UT; -OMEP40CA41 PO; -POTA-327 PO; -SPR25 PO; -TOLT4CAP PO; +cefUROXime 1,500 MG in DEXTROSE 5% 100 ML IV SCH
[2021-10-15] MEDS ORDERED: cefUROXime 1,500 MG in DEXTROSE 5% 100 ML IV ONE (06:00)
[2021-10-15] MEDS ORDERED: LR 15ML/HR IV SCH (06:00)
--- NOTE | 2021-10-15 06:55 | Anesthesiology Consultation ---
Date of Service October 15, 2021 Assessment & Plan ASA ASA4 Proposed Anesthesia Anesthesia Type: General Risk / Benefits Reviewed With: PT / POA / Parent / Guardian, Accepts Plan and Informed Consent Obtained Date of Surgery October 15, 2021 Height/Weight Height: 5 ft 6 in Weight: 118.2 kg Vital Signs Last Vital Signs Temp 36.7 C 10/15/21 06:04 Pulse 102 H 10/15/21 06:04 Resp 20 10/15/21 06:04 BP 173/79 H 10/15/21 06:48 Pulse Ox 96 10/15/21 06:04 Allergies Allergy/AdvReac Type Severity Reaction Status Date / Time Sulfa (Sulfonamide Allergy Intermediate Hives Verified 10/15/21 05:58 Antibiotics) cortisone AdvReac Intermediate Hypertensio Verified 10/15/21 05:58 n prednisone AdvReac Intermediate Elevated BP Verified 10/15/21 05:58 Medications Home Medications Medication Instructions Recorded Confirmed Last Taken aspirin 81 mg tablet,delayed 81 mg PO QAM 11/17/18 10/15/21 10/14/21 08:00 release (Adult Low Dose Aspirin) fluticasone propionate 50 2 sprays INTNAS DAILY PRN #54.6 ml 10/24/19 10/15/21 2 Months Ago mcg/actuation nasal ~08/15/21 spray,suspension (Flonase Allergy Relief) clemastine 2.68 mg tablet 2.68 mg PO BID PRN #180 tab 02/16/21 10/15/21 10/14/21 08:00 furosemide 20 mg tablet 20 mg PO QAM #90 tab 03/24/21 10/15/21 10/14/21 08:00 valsartan 80 mg tablet (Diovan) 80 mg PO BID #180 tab 04/27/21 10/15/21 10/15/21 04:30 omeprazole 40 mg capsule,delayed 40 mg PO QAM #90 cap 05/27/21 10/15/21 10/15/21 04:30 release tolterodine 4 mg capsule,extended 4 mg PO QAM #90 cap 06/25/21 10/15/21 10/14/21 08:00 release 24 hr clonidine HCl 0.1 mg tablet 0.1 mg PO BID #180 tab 08/03/21 10/15/21 10/15/21 04:30 metformin 1,000 mg tablet,extended 1,000 mg PO BID #60 tab 08/31/21 10/15/21 10/14/21 08:00 release 24hr amlodipine 5 mg tablet (Norvasc) 5 mg PO QAM #90 tab 09/15/21 10/15/21 10/15/21 04:30 atorvastatin 80 mg tablet 80 mg PO HS 09/24/21 10/15/21 10/14/21 08:00 benzonatate 100 mg capsule 100 mg PO TID PRN #30 cap 10/02/21 10/15/21 Unknown fenofibrate nanocrystallized 145 145 mg PO DAILY 10/04/21 10/15/21 10/14/21 08:00 mg tablet potassium chloride 10 mEq 10 meq PO QAM 10/04/21 10/15/21 10/14/21 08:00 tablet,extended release acetaminophen 325 mg capsule 650 mg PO Q4H PRN #0 cap 10/09/21 10/15/21 10/14/21 17:00 (Tylenol) hydrocodone 5 mg-acetaminophen 325 1 tab PO Q4H PRN #30 tab 10/15/21 Unknown mg tablet ondansetron HCl 4 mg tablet 4 mg PO Q6H PRN #10 tab 10/15/21 Unknown Past Anesthesia History No Hx of Anesthesia Complications and No Family Hx of Anesthesia Complications History of PONV No Hx of PONV and No Hx of Motion Sickness NPO Date Last Intake of Fluids: 10/14/21 Time Last Intake of Fluids: 23:59 Date Last Intake of Solids: 10/14/21 Time Last Intake of Solids: 18:30 HCG & FBG Results 10/15/21 06:01 POC Glucose 145 H Exercise / Class Metabolic Activity Metabolic Activity: III < 4 Walking/Shop/Light housework Physical Exam Constitutional: + morbidly obese Mouth: + dentition abnormality and + poor dentition Thyromental Distance: < 3.5 Finger Breadths Mallampati Class: II Neck: + visual inspection normal and + trachea midline; no limited neck extension Respiratory: + respiratory effort normal and + diminished lung sounds Cardiovascular: + regular rate and + regular rhythm; no murmur and no carotid bruit Musculoskeletal: no limited cervical ROM Neurologic: + moves all extremities; no sensory deficit Psychiatric: + alert and + oriented x 3 ASA ASA4 Proposed Anesthesia Proposed Anesthesia: General Risk / Benefits Reviewed With: PT / POA / Parent / Guardian, Accepts Plan and Informed Consent Obtained History Surgery Operation Date: 10/05/21 08:30 Proposed Procedures p Laparoscopic Cholecystectomy - Christian Morris MD, FACS Operation Date: 10/15/21 07:15 Proposed Procedures p Laparoscopic Cholecystectomy - Christian Morris MD, FACS Height/Weight Height: 5 ft 6 in Weight: 118.2 kg Allergies Allergy/AdvReac Type Severity Reaction Status Date / Time Sulfa (Sulfonamide Allergy Intermediate Hives Verified 10/15/21 05:58 Antibiotics) cortisone AdvReac Intermediate Hypertensio Verified 10/15/21 05:58 n prednisone AdvReac Intermediate Elevated BP Verified 10/15/21 05:58 Medications Home Medications Medication Instructions Recorded Confirmed Last Taken aspirin 81 mg tablet,delayed 81 mg PO QAM 11/17/18 10/15/21 10/14/21 08:00 release (Adult Low Dose Aspirin) fluticasone propionate 50 2 sprays INTNAS DAILY PRN #54.6 ml 10/24/19 10/15/21 2 Months Ago mcg/actuation nasal ~08/15/21 spray,suspension (Flonase Allergy Relief) clemastine 2.68 mg tablet 2.68 mg PO BID PRN #180 tab 02/16/21 10/15/21 10/14/21 08:00 furosemide 20 mg tablet 20 mg PO QAM #90 tab 03/24/21 10/15/21 10/14/21 08:00 valsartan 80 mg tablet (Diovan) 80 mg PO BID #180 tab 04/27/21 10/15/21 10/15/21 04:30 omeprazole 40 mg capsule,delayed 40 mg PO QAM #90 cap 05/27/21 10/15/21 10/15/21 04:30 release tolterodine 4 mg capsule,extended 4 mg PO QAM #90 cap 06/25/21 10/15/21 10/14/21 08:00 release 24 hr clonidine HCl 0.1 mg tablet 0.1 mg PO BID #180 tab 08/03/21 10/15/21 10/15/21 04:30 metformin 1,000 mg tablet,extended 1,000 mg PO BID #60 tab 08/31/21 10/15/21 08:00 release 24hr amlodipine 5 mg tablet (Norvasc) 5 mg PO QAM #90 tab 09/15/21 10/15/21 10/15/21 04:30 atorvastatin 80 mg tablet 80 mg PO HS 09/24/21 10/15/21 10/14/21 08:00 benzonatate 100 mg capsule 100 mg PO TID PRN #30 cap 10/02/21 10/15/21 Unknown fenofibrate nanocrystallized 145 145 mg PO DAILY 10/04/21 10/15/21 10/14/21 08:00 mg tablet potassium chloride 10 mEq 10 meq PO QAM 10/04/21 10/15/21 10/14/21 08:00 tablet,extended release acetaminophen 325 mg capsule 650 mg PO Q4H PRN #0 cap 10/09/21 10/15/21 10/14/21 17:00 (Tylenol) hydrocodone 5 mg-acetaminophen 325 1 tab PO Q4H PRN #30 tab 10/15/21 Unknown mg tablet ondansetron HCl 4 mg tablet 4 mg PO Q6H PRN #10 tab 10/15/21 Unknown NPO Date Last Intake of Fluids: 10/14/21 Time Last Intake of Fluids: 23:59 Date Last Intake of Solids: 10/14/21 Time Last Intake of Solids: 18:30 Past Medical History Medical History CAD (coronary artery disease) Moderate CAD per 2015 cardiac cath-F/U DR PADMINI SMART Mild to moderate CAD (nonobstructive) per cardio records Carpal tunnel syndrome COVID-19 Dyspnea on effort Due to deconditioning per patient Gastroesophageal reflux disease Controlled History of Lyme disease 2014 Hypercholesterolemia Hypertension (BP during procedure 12/2019 went up to 265/156- case was cancelled and pt admitted to [facility]) -No significant issues noted with 01/2020 right shoulder surgery Lung collapse - 01/10/20 during procedure (right shoulder arthroscopy, RCR) at [facility] > was result of nerve block. Hospitalized for 3 days> Resolved (No mention of this in discharge summary- pt had dyspnea when laying flat after nerve block placed but CXR showed no issues with diaphragm). 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 "benign" Morbid obesity Pancreatitis Stress incontinence Stroke "Stress induced" at age 39-NO ISSUES SINCE-SOME WEAKNESS RIGHT ARM REMAINS Type 2 diabetes mellitus NIDDM Exercise / Class Metabolic Activity III < 4 Walking/Shop/Light housework Past Family History Family History Father Hypertension Myocardial infarction Lung cancer Diabetes Heart disease Cancer Sister Multiple sclerosis Mother Ovarian cancer Diabetes Cancer Heart disease Stroke Denies family history of Prostate cancer Breast cancer Colorectal cancer Past Surgical History Surgical History H/O lateral meniscus repair of right knee History of cardiac cath 2014 ([facility])- no stents History of colonoscopy 2018 History of dental surgery tooth replacement but since rejected and removed History of tubal ligation Hx of umbilical hernia repair x2 S/P complete repair of rotator cuff Superior capsular reconstruction February 2020- and bicep Past Anesthesia History No Hx of Anesthesia Complications and No Family Hx of Anesthesia Complications History of PONV No Hx of PONV and No Hx of Motion Sickness Social History Smoking Status: Never smoker Do You Dip or Chew Tobacco: No Hx Alcohol Use: No Hx Substance Use: No substance use type: does not use Physical Exam Vital Signs Last Vital Signs Temp 36.7 C 10/15/21 06:04 Pulse 102 H 10/15/21 06:04 Resp 20 10/15/21 06:04 BP 173/79 H 10/15/21 06:48 Pulse Ox 96 10/15/21 06:04 Constitutional + morbidly obese ENMT Mouth: + dentition abnormality and + poor dentition Thyromental Distance: < 3.5 Finger Breadths Mallampati Class: II Neck normal visual inspection and trachea midline; neck extension not limited Respiratory normal respiratory effort Auscultation: + diminished lung sounds Cardiovascular Rate/Rhythm: regular rate and regular rhythm Heart Sounds: no murmur Vessels: no carotid bruit Musculoskeletal Spine: normal cervical ROM Neurologic moves all extremities Motor/Sensory: no sensory deficit Psychiatric Orientation: alert and oriented x 3 Testing Laboratory Results 10/15/21 06:01 POC Glucose 145 H
[2021-10-15] MEDS ORDERED: LIDOCAINE 2% 2 ML VIAL/AMP(20MG/ML) INFIL ONE (06:56)
[2021-10-15] MEDS ORDERED: PROPOFOL IV EMULSION 10 MG/ML 20 ML VIAL IV ONE (06:56)
[2021-10-15] MEDS ORDERED: MIDAZOLAM HCL 1 MG/ML 2ML VIAL ONE (06:56)
[2021-10-15] MEDS ORDERED: fentaNYL citrate 100 MCG/2 ML VIAL ONE (06:56)
[2021-10-15] MEDS ORDERED: ONDANSETRON INJ 2 MG/ML 2 ML VIAL ONE (06:56)
[2021-10-15] MEDS ORDERED: ROCURONIUM BROMIDE 10 MG/ML 5 ML VIAL IV ONE (06:56)
[2021-10-15] MEDS ORDERED: DEXAMETHASONE SOD INJ 4 MG/ML VIAL ONE (06:56)
--- NOTE | 2021-10-15 06:58 | Anesthesiology Consultation ---
Date of Service October 15, 2021 Assessment & Plan Chart Review Chart Review: Acceptable Risk for Surgery and Patient NOT seen in Pre Admission Testing Consults Requested none ASA ASA4 Proposed Anesthesia Anesthesia Type: General Risk / Benefits Reviewed With: PT / POA / Parent / Guardian, Accepts Plan and Informed Consent Obtained History Surgery Operation Date: 10/05/21 08:30 Proposed Procedures p Laparoscopic Cholecystectomy - Christian Morris MD, FACS Operation Date: 10/15/21 07:15 Proposed Procedures p Laparoscopic Cholecystectomy - Christian Morris MD, FACS Height/Weight Height: 5 ft 6 in Weight: 118.2 kg Allergies Allergy/AdvReac Type Severity Reaction Status Date / Time Sulfa (Sulfonamide Allergy Intermediate Hives Verified 10/15/21 05:58 Antibiotics) cortisone AdvReac Intermediate Hypertensio Verified 10/15/21 05:58 n prednisone AdvReac Intermediate Elevated BP Verified 10/15/21 05:58 Medications Home Medications Medication Instructions Recorded Confirmed Last Taken aspirin 81 mg tablet,delayed 81 mg PO QAM 11/17/18 10/15/21 10/14/21 08:00 release (Adult Low Dose Aspirin) fluticasone propionate 50 2 sprays INTNAS DAILY PRN #54.6 ml 10/24/19 10/15/21 2 Months Ago mcg/actuation nasal ~08/15/21 spray,suspension (Flonase Allergy Relief) clemastine 2.68 mg tablet 2.68 mg PO BID PRN #180 tab 02/16/21 10/15/21 10/14/21 08:00 furosemide 20 mg tablet 20 mg PO QAM #90 tab 03/24/21 10/15/21 10/14/21 08:00 valsartan 80 mg tablet (Diovan) 80 mg PO BID #180 tab 04/27/21 10/15/21 10/15/21 04:30 omeprazole 40 mg capsule,delayed 40 mg PO QAM #90 cap 05/27/21 10/15/21 10/15/21 04:30 release tolterodine 4 mg capsule,extended 4 mg PO QAM #90 cap 06/25/21 10/15/21 10/14/21 08:00 release 24 hr clonidine HCl 0.1 mg tablet 0.1 mg PO BID #180 tab 08/03/21 10/15/21 10/15/21 04:30 metformin 1,000 mg tablet,extended 1,000 mg PO BID #60 tab 08/31/21 10/15/21 10/14/21 08:00 release 24hr amlodipine 5 mg tablet (Norvasc) 5 mg PO QAM #90 tab 09/15/21 10/15/21 10/15/21 04:30 atorvastatin 80 mg tablet 80 mg PO HS 09/24/21 10/15/21 10/14/21 08:00 benzonatate 100 mg capsule 100 mg PO TID PRN #30 cap 10/02/21 10/15/21 Unknown fenofibrate nanocrystallized 145 145 mg PO DAILY 10/04/21 10/15/21 10/14/21 08:00 mg tablet potassium chloride 10 mEq 10 meq PO QAM 10/04/21 10/15/21 10/14/21 08:00 tablet,extended release acetaminophen 325 mg capsule 650 mg PO Q4H PRN #0 cap 10/09/21 10/15/21 10/14/21 17:00 (Tylenol) hydrocodone 5 mg-acetaminophen 325 1 tab PO Q4H PRN #30 tab 10/15/21 Unknown mg tablet ondansetron HCl 4 mg tablet 4 mg PO Q6H PRN #10 tab 10/15/21 Unknown NPO Date Last Intake of Fluids: 10/14/21 Time Last Intake of Fluids: 23:59 Date Last Intake of Solids: 10/14/21 Time Last Intake of Solids: 18:30 Past Medical History Medical History CAD (coronary artery disease) Moderate CAD per 2015 cardiac cath-F/U DR PADMINI SMART Mild to moderate CAD (nonobstructive) per cardio records Carpal tunnel syndrome COVID-19 Dyspnea on effort Due to deconditioning per patient Gastroesophageal reflux disease Controlled History of Lyme disease 2014 Hypercholesterolemia Hypertension (BP during procedure 12/2019 went up to 265/156- case was cancelled and pt admitted to [facility]) -No significant issues noted with 01/2020 right shoulder surgery Lung collapse - 01/10/20 during procedure (right shoulder arthroscopy, RCR) at [facility] > was result of nerve block. Hospitalized for 3 days> Resolved (No mention of this in discharge summary- pt had dyspnea when laying flat after nerve block placed but CXR showed no issues with diaphragm). 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 "benign" Morbid obesity Pancreatitis Stress incontinence Stroke "Stress induced" at age 39-NO ISSUES SINCE-SOME WEAKNESS RIGHT ARM REMAINS Type 2 diabetes mellitus NIDDM Exercise / Class Metabolic Activity III < 4 Walking/Shop/Light housework Past Family History Family History Father Hypertension Myocardial infarction Lung cancer Diabetes Heart disease Cancer Sister Multiple sclerosis Mother Ovarian cancer Diabetes Cancer Heart disease Stroke Denies family history of Prostate cancer Breast cancer Colorectal cancer Past Surgical History Surgical History H/O lateral meniscus repair of right knee History of cardiac cath 2014 ([facility])- no stents History of colonoscopy 2018 History of dental surgery tooth replacement but since rejected and removed History of tubal ligation Hx of umbilical hernia repair x2 S/P complete repair of rotator cuff Superior capsular reconstruction February 2020- and bicep Past Anesthesia History No Hx of Anesthesia Complications and No Family Hx of Anesthesia Complications History of PONV No Hx of PONV and No Hx of Motion Sickness Social History Smoking Status: Never smoker Do You Dip or Chew Tobacco: No Hx Alcohol Use: No Hx Substance Use: No substance use type: does not use Physical Exam Vital Signs Last Vital Signs Temp 36.7 C 10/15/21 06:04 Pulse 102 H 10/15/21 06:04 Resp 20 10/15/21 06:04 BP 173/79 H 10/15/21 06:48 Pulse Ox 96 10/15/21 06:04 Constitutional + morbidly obese ENMT Mouth: + dentition abnormality and + poor dentition Thyromental Distance: < 3.5 Finger Breadths Mallampati Class: II Neck normal visual inspection and trachea midline; neck extension not limited Respiratory normal respiratory effort Auscultation: + diminished lung sounds Cardiovascular Rate/Rhythm: regular rate and regular rhythm Heart Sounds: no murmur Vessels: no carotid bruit Musculoskeletal Spine: normal cervical ROM Neurologic moves all extremities Motor/Sensory: no sensory deficit Psychiatric Orientation: alert and oriented x 3 Testing Laboratory Results 10/15/21 06:01 POC Glucose 145 H Electrocardiogram Date: 03/02/21 Sinus arrhythmia with 1st degree AVB at 80bpm Lateral ST-T changes may be due to myocardia ischemia "1st degree AVB. No new ST/T wave changes since 2019" per confirming provider "EKG 03/02/21 with sinus rhythm, first-degree AV block with OH interval 246ms, ST depressions and T inversions leads 1, aVL. Compared to EKG from January 10, 2020 no significant change" per cardio note 09/23/21 Echocardiogram Date: 01/11/20 EF: 65-70% LV Function:normal RWMA:+ none Other Findings:+ LVH (Mild/concentric) Compared with study dated 02/07/2015, no significant change. Left atrium mildly dilated. Grade 1 diastolic dysfunction. Cardiac Catheterization Date:02/07/15 Coronary Anatomy Dominant: Right Left Main (% Stenosis): Normal LAD (% Stenosis): Mid (30), Distal (10-20) D1 (% Stenosis): Normal (Very small caliber vessel) D2 (% Stenosis): Ostial (50-60) Circumflex (% Stenosis): Ostial (10-20), Mid (30) OM1 (% Stenosis): Ostial (30) RCA (% Stenosis): Ostial (20), Proximal (20), Mid (10-20), Distal (10-20) R PDA (% Stenosis): Proximal (0-10) R PL1 (% Stenosis): Normal R PL2 (% Stenosis): Normal Left Ventricular Angiography EF (%): 65 Wall Motion: Inferior (Normal), Apical (Normal), Anterior (Normal) Mitral Regurgitation: None Post-procedure diagnosis: Moderate CAD-- medical therapy rec'd.
[2021-10-15] MEDS ORDERED: BUPIVACAINE 0.5 % 5 MG/1 ML MPF 30ML VIAL ONE (07:02)
[2021-10-15] MEDS ORDERED: LABETALOL HCL IV 5 MG/ML 20ML IV ONE (08:03)
[2021-10-15] MEDS ORDERED: GLYCOPYRROLATE 0.2 MG/ML VIAL ONE (08:11)
[2021-10-15] MEDS ORDERED: NEOSTIGMINE METHYLSULFATE 1 MG/ML 10ML VIAL ONE (08:11)
[2021-10-15] MEDS ORDERED: FLUMAZENIL 0.1 MG/1 ML 10 ML VIAL IV PRN (08:22)
[2021-10-15] MEDS ORDERED: ePHEDrine sulfate 50 MG/ML AMP IV PRN (08:22)
[2021-10-15] MEDS ORDERED: ONDANSETRON INJ 2 MG/ML 2 ML VIAL IV PRN ×2 (08:22→11:05)
[2021-10-15] MEDS ORDERED: ATROPINE SULFATE 0.1 MG/ML 10ML SYR IV PRN (08:22)
[2021-10-15] MEDS ORDERED: ACETAMINOPHEN 1,000 MG/100 ML VIAL IV ONE (08:22)
[2021-10-15] MEDS ORDERED: LABETALOL HCL IV 5 MG/ML 20ML IV PRN (08:22)
[2021-10-15] MEDS ORDERED: NALOXONE HCL 0.4 MG/1 ML VIAL/CARP IV PRN (08:22)
[2021-10-15] MEDS ORDERED: PROMETHAZINE HCL 12.5 MG in SODIUM CHLORIDE 0.9% 50 ML IV PRN ×2 (08:22→11:05)
--- NOTE | 2021-10-15 08:22 | Post Operative Brief Note ---
PG Immediate Post Op with CF Date of Surgery October 15, 2021 Pre & Post Diagnosis Operation Date: 10/05/21 08:30 <No data on this case meets the specified criteria> Operation Date: 10/15/21 07:15 Pre-Op Diagnosis: Biliary Colic Post-Op Diagnosis: Biliary Colic , Acute cholecystitis, severe chronic cholecystitis, adhesions I identified the patient and participated in the time-out.: Yes Procedure Operation Date: 10/05/21 08:30 <No data on this case meets the specified criteria> Operation Date: 10/15/21 07:15 Actual Procedures p Laparoscopic Cholecystectomy(Not Applicable) - Christian Morris MD, FACS Lysis of adhesions Surgeon Christian Morris MD, FACS Field Traffic Investigator Jean-Paul Navarro Estimated Blood Loss 10 Findings Consistent with Post-Op Diagnosis Patient had acute cholecystitis and then severe chronic cholecystitis with scar tissue especially near the cody hepatis and throughout the bed of the liver She had significant adhesions which were chronic Specimens Specimen Description: A. Gall Bladder
[2021-10-15] MEDS: fentaNYL citrate 100 MCG/2 ML VIAL IV PRN ×4 (08:41→09:04)
[2021-10-15] MEDS ORDERED: HYDROmorphone INJ 0.5 MG/0.5 ML SYR IV PRN (09:45)
[2021-10-15] MEDS ORDERED: HYDROmorphone INJ 1 MG/ML SYRINGE ONE (09:47)
[2021-10-15] MEDS: HYDROmorphone INJ 0.5 MG/0.5 ML SYR IV PRN ×5 (09:54→19:56)
--- NOTE | 2021-10-15 10:38 | Anesthesiology Progress Note ---
Date of Service October 15, 2021 Anesthesia Post Procedure Vital Signs Vital Signs: Temp Pulse Resp BP Pulse Ox 10/15/21 10:35 47 L 14 155/74 H 98 10/15/21 10:25 46 L 18 145/74 H 96 10/15/21 10:15 46 L 15 138/99 98 10/15/21 10:05 47 L 16 147/92 H 96 10/15/21 09:55 48 L 18 159/95 H 94 10/15/21 09:45 46 L 19 149/80 H 93 10/15/21 09:35 48 L 23 159/90 H 93 10/15/21 09:25 45 L 13 143/69 H 96 10/15/21 09:15 46 L 23 153/72 H 98 10/15/21 09:05 44 L 18 147/64 H 97 10/15/21 08:55 44 L 22 153/73 H 99 10/15/21 08:45 45 L 19 158/65 H 98 10/15/21 08:36 36.5 C 48 L 18 153/77 H 97 10/15/21 06:48 173/79 H 10/15/21 06:04 36.7 C 102 H 20 167/118 H 96 Pain Intensity Right Abdomen: Pain Intensity: 4 Transfer of Care Handoff Completed per policy Notes Mental Status: alert / awake / arousable Patient Amnestic to Procedure: Yes Nausea / Vomiting: adequately controlled Pain: adequately controlled Airway Patency, RR, SpO2: stable & adequate BP & HR: stable & adequate Hydration State: stable & adequate Anesthetic Complications: no major complications apparent
[2021-10-15] MEDS ORDERED: oxyCODONE HCL IR 5 MG TAB (IMMEDIATE RELEASE) PO PRN (11:05)
[2021-10-15] MEDS ORDERED: TOLTERODINE TARTRATE LA 4 MG CAPCR PO SCH (11:05)
[2021-10-15] MEDS ORDERED: ACETAMINOPHEN 325 MG TAB PO PRN (11:05)
--- NOTE | 2021-10-15 11:47 | Hospitalist Consultation ---
Date of Consultation October 15, 2021 Assessment & Plan (1) S/P laparoscopic cholecystectomy: - POD #0, doing well without complaints. EBL [address] cc. [address] drain in place. - Defer ABX, IVF, pain management, DVT PPx, transition requirement to primary team. - CBC and BMP in AM. (2) Irritant dermatitis: - triamcinolone cream ordered prn, apply under breasts. (3) Hypertension: - Can restart amlodipine, clonidine, valsartan on POD#1 10/16. (4) Diabetes: - On metformin at home, will hold this. - Accu-Cheks ACHS with sliding scale insulin for now. - A1c 8.3%. May need increase in metformin or second agent for better control, will defer to PCP. - Diabetic/heart healthy diet. (5) Hypercholesterolemia: - Continue statin, Tricor. (6) Gastroesophageal reflux disease: - Continue PPI. (7) CAD (coronary artery disease): - Continue statin, Tricor, BP meds, ASA. Past history: - Cardiac cath 02/07/15: 30% early mid and 10-20% mid and distal LAD. 50-60% ostial diagonal. 10-20% ostial and 30% mid LCx. 30% ostial and prox OM. 20% ostial and prox and 10-20% mid and distal RCA. 0-10% PDA. - Echo 12/2019: normal biventricular systolic function, mild LVH, grade 1 LV diastolic dysfunction, LV ejection fraction 65-70%, mild left atrial dilatation, no significant valvular abnormalities. - Follows with Dr. Gandara - [facility] [place] [facility]. (8) Chronic edema: - May continue Lasix tomorrow 10/16 on POD #1. - Continue potassium supplementation when resuming Lasix. (9) Overactive bladder: - Continue Detrol. - Obs status on med/surg with d/c plans for tomorrow pending no acute events overnight. - VTE ppx per primary team. - Full Code. Supervising Physician Co-Signing Physician Notes I personally saw and examined the patient. I verified all sy points and agree with Renee Lisa PA-C with the following exceptions and/or additions: 66 year old female admission for elective cholecystectomy POD #0. Doing well post operatively. Pain under control with current medications. BP stable. No residual COVID symptoms. O/E HS1+2, no murmurs, Chest CTAB, Abdo mild generalized tenderness (not inspected) A/P No change to plan above. Reviewed medications with the patient and ok to restart BP meds tomorrow. History of Present Illness Reason for Consultation: Medication management Attending Physician: Christian Morris MD, FACS History of Present Illness Mrs. Loredo is a 66 y/o female with PMH significant for CAD, hypertension, hyperlipidemia, diabetes, and GERD who is admitted today, 10/15 for elective laparoscopic cholecystectomy. Hospitalist service was consulted for medication management. Today she is POD#0 and having some mild discomfort at the incision site but is otherwise doing well. No fever/chills, focal weakness/numbness, chest pain, palpitations, SOB, abdominal pain, nausea, or vomiting. Does note she has developed a red, burning rash under her b/l breasts today after applying pre-op antiseptic wipes last night. She is requesting something to soothe this. Will order triamcinolone cream. Allergies Allergy/AdvReac Type Severity Reaction Status Date / Time Sulfa (Sulfonamide Allergy Intermediate Hives Verified 10/15/21 05:58 Antibiotics) cortisone AdvReac Intermediate Hypertensio Verified 10/15/21 05:58 n prednisone AdvReac Intermediate Elevated BP Verified 10/15/21 05:58 Home Medications Medication Instructions Recorded Confirmed Type aspirin 81 mg tablet,delayed 81 mg PO QAM 11/17/18 10/15/21 History release (Adult Low Dose Aspirin) fluticasone propionate 50 2 sprays INTNAS DAILY PRN #54.6 ml 10/24/19 10/15/21 Rx mcg/actuation nasal spray,suspension (Flonase Allergy Relief) clemastine 2.68 mg tablet 2.68 mg PO BID PRN #180 tab 02/16/21 10/15/21 Rx furosemide 20 mg tablet 20 mg PO QAM #90 tab 03/24/21 10/15/21 Rx valsartan 80 mg tablet (Diovan) 80 mg PO BID #180 tab 04/27/21 10/15/21 Rx omeprazole 40 mg capsule,delayed 40 mg PO QAM #90 cap 05/27/21 10/15/21 Rx release tolterodine 4 mg capsule,extended 4 mg PO QAM #90 cap 06/25/21 10/15/21 Rx release 24 hr clonidine HCl 0.1 mg tablet 0.1 mg PO BID #180 tab 08/03/21 10/15/21 Rx metformin 1,000 mg tablet,extended 1,000 mg PO BID #60 tab 08/31/21 10/15/21 Rx release 24hr amlodipine 5 mg tablet (Norvasc) 5 mg PO QAM #90 tab 09/15/21 10/15/21 Rx atorvastatin 80 mg tablet 80 mg PO HS 09/24/21 10/15/21 History benzonatate 100 mg capsule 100 mg PO TID PRN #30 cap 10/02/21 10/15/21 Rx fenofibrate nanocrystallized 145 145 mg PO DAILY 10/04/21 10/15/21 History mg tablet potassium chloride 10 mEq 10 meq PO QAM 10/04/21 10/15/21 History tablet,extended release acetaminophen 325 mg capsule 650 mg PO Q4H PRN #0 cap 10/09/21 10/15/21 Rx (Tylenol) hydrocodone 5 mg-acetaminophen 325 1 tab PO Q4H PRN #30 tab 10/15/21 Rx mg tablet ondansetron HCl 4 mg tablet 4 mg PO Q6H PRN #10 tab 10/15/21 Rx amoxicillin 875 mg-potassium 1 tab PO BID #10 tab 10/16/21 Rx clavulanate 125 mg tablet Patient History Medical History (Updated 10/15/21 @ 15:38 by Renee Lisa PA-C) CAD (coronary artery disease) Moderate CAD per 2015 cardiac cath-F/U DR PADMINI SMART Mild to moderate CAD (nonobstructive) per cardio records Carpal tunnel syndrome COVID-19 Dyspnea on effort Due to deconditioning per patient Gastroesophageal reflux disease Controlled History of Lyme disease 2014 Hypercholesterolemia Hypertension (BP during procedure 12/2019 went up to 265/156- case was cancelled and pt admitted to [facility]) -No significant issues noted with 01/2020 right shoulder surgery Lung collapse - 01/10/20 during procedure (right shoulder arthroscopy, RCR) at [facility] > was result of nerve block. Hospitalized for 3 days> Resolved (No mention of this in discharge summary- pt had dyspnea when laying flat after nerve block placed but CXR showed no issues with diaphragm). 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 "benign" Morbid obesity Pancreatitis Stress incontinence Stroke "Stress induced" at age 39-NO ISSUES SINCE-SOME WEAKNESS RIGHT ARM REMAINS Type 2 diabetes mellitus NIDDM Surgical History (Updated 10/16/21 @ 10:26 by Aracely Molina RN) H/O lateral meniscus repair of right knee History of cardiac cath 2014 ([facility])- no stents History of colonoscopy 2018 History of dental surgery tooth replacement but since rejected and removed History of tubal ligation Hx laparoscopic cholecystectomy (10/15/21) Laparoscopic cholecystectomy with lysis of adhesions. Dr. Morris Hx of umbilical hernia repair x2 S/P complete repair of rotator cuff Superior capsular reconstruction February 2020- and bicep Family History Father Hypertension Myocardial infarction Lung cancer Diabetes Heart disease Cancer Sister Multiple sclerosis Mother Ovarian cancer Diabetes Cancer Heart disease Stroke Denies family history of Prostate cancer Breast cancer Colorectal cancer Social History Smoking Status: Never smoker Second Hand Exposure: Yes (FATHER SMOKED); Do You Dip or Chew Tobacco: No; Hx Alcohol Use: No Hx Substance Use: No Preferred Language: Urdu Communication Ability: Effective Visual Impairment: No Limitations Hearing Ability: 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 Head Required: No Beliefs That Will Affect Care: None marital status: Current Living Situation: Spouse Current Living Situation Comment: [place] current occupational status: retired How many Children do You have: 2 Other Information That Helps Us Care for You: No Feels Safe at Home: Yes Safety Concerns: Feels Safe At This Time Childhood Exposure to Second-Hand Smoke: Yes during the past year weight has: remained stable Dental Care, Regularly: No Physical Activity Frequency: Does not Exercise Seatbelt Use: always Sunscreen Use: Yes Assistive Devices: None Assistive Devices Comment: PARTIAL Review of Systems Review of Systems: Review of systems: Constitutional: No fever/chills, weakness, fatigue, myalgias, anorexia, night sweats Eyes: No diplopia, no worsening or blurred vision ENT: normal hearing, no trouble swallowing Respiratory: No cough, sputum, dyspnea at rest or on exertion Cardiovascular: No chest pain, tightness or palpitations Abdomen: No pain, nausea, vomiting, diarrhea or constipation : Denies dysuria, hematuria, increased urgency/frequency, urinary retention Musculoskeletal: No joint pain, calf pain, swelling Neurologic: No weakness, numbness/tingling, or balance problems Psychiatric: No anxiety or depression Skin: painful rash under b/l breasts; Physical Exam Physical Exam: General: awake, alert, no apparent distress, NADEGE drain in place with gauze at incision site damage prevention technician: Normocephalic, atraumatic ENT: PERRL, EOMI, no pharyngeal exudate, mucous membranes moist Chest: Clear to auscultation, on room air, no adventitious breath sounds Cardiac: Regular rate and rhythm, no murmur, no JVD, normal peripheral pulses, good capillary refill Abdominal: NABS x 4 quadrants, soft, nontender to palpation, no rebound, guarding or tenderness Extremities: Normal inspection, no peripheral edema or erythema, calfs nontender to palpation Psych: Normal mood and affect Neuro: AAO x 3, strength intact bilaterally and rated 5/5, no motor deficits, speech is clear, no peripheral sensory deficits Skin: no rash or erythema Results & Data Results & Data ([facility]) Vital Signs (Past 12 Hours) Vital Signs Temp Pulse Resp BP Pulse Ox 10/15/21 11:30 49 L 21 157/82 H 94 10/15/21 11:15 48 L 15 148/70 H 93 10/15/21 11:00 48 L 18 159/73 H 94 10/15/21 10:45 48 L 16 145/73 H 94 10/15/21 10:35 36.9 C 47 L 14 155/74 H 98 10/15/21 10:25 46 L 18 145/74 H 96 10/15/21 10:15 46 L 15 138/99 98 10/15/21 10:05 47 L 16 147/92 H 96 10/15/21 09:55 48 L 18 159/95 H 94 10/15/21 09:45 46 L 19 149/80 H 93 10/15/21 09:35 48 L 23 159/90 H 93 10/15/21 09:25 45 L 13 143/69 H 96 10/15/21 09:15 46 L 23 153/72 H 98 10/15/21 09:05 44 L 18 147/64 H 97 10/15/21 08:55 44 L 22 153/73 H 99 10/15/21 08:45 45 L 19 158/65 H 98 10/15/21 08:36 36.5 C 48 L 18 153/77 H 97 10/15/21 06:48 173/79 H 10/15/21 06:04 36.7 C 102 H 20 167/118 H 96 Laboratory Results Abnormal lab results 10/15/21 Range/Units 06:01 POC Glucose 145 H (70-99) mg/dl PG Care Time/CCT Total # of Minutes Spent Total Time Spent with Patient: Total time spent is greater than 50% in coordination of care (as documented) at patient's floor/unit and/or counseling patient: Coding Level of Care Code 60650 Inpt Consult Level 3 Diagnoses S/P laparoscopic cholecystectomy Z90.49 Hypertension I10 Diabetes E11.9 Hypercholesterolemia E78.00 Gastroesophageal reflux disease K21.9 CAD (coronary artery disease) I25.10 Chronic edema R60.9 Overactive bladder N32.81 Irritant dermatitis L24.9
--- NOTE | 2021-10-15 11:52 | Operative Report (OR) ---
DATE OF OPERATION: 10/15/2021 NAME OF OPERATION: Laparoscopic cholecystectomy with lysis of adhesions. PREOPERATIVE DIAGNOSIS: Biliary colic. POSTOPERATIVE DIAGNOSES: Biliary colic with acute cholecystitis and severe chronic cholecystitis wit h adhesions. STAFF SURGEON: Christian Morris MD. SECURITY SALES MANAGER: Lavinia Navarro PA-C. ANESTHESIA: General. DESCRIPTION OF PROCEDURE: The patient was brought into the operating room and placed on the operatin g table in supine position. Her abdomen was prepped and draped in the usual fashion. My assistant professor of physics h elped with prepping, draping, removal of the gallbladder and closure of the wound. Initially, incisi on was made above the umbilicus using 0.5% plain Marcaine to anesthetize all incisions. Dissection w as carried down to the fascia, placing a Veress needle producing pneumoperitoneum. An 11 mm port was placed at this level and under visualization, three 5 mm ports were placed. The patient's gallbladde r was very dilated, thickened with chronic adhesions. It was consistent with acute cholecystitis, se dylan chronic cholecystitis and adhesions. The adhesions were taken down. Dissection was carried out to the cody hepatis through scar tissue, identifying the cystic duct and cystic artery. These were clipped and transected, and the gallbladder was dissected away from the liver bed. There was severe chronic inflammation in the posterior wall. The gallbladder was placed in an Endobag. After approp riate hemostasis and irrigation, a 15 round Jameel-Rahman drain was placed through the lateral 5 mm p ort site into the subhepatic space, secured to the skin using 3-0 nylon suture. Using a 5 mm camera, the gallbladder was removed through the umbilical site. I did have to enlarge the fascial defect bec ause of the size of the gallbladder. The fascia at the umbilicus closed using interrupted 0 PDS sutu re. The skin was reapproximated using interrupted 4-0 nylon suture. Dressings applied. The patient was transferred to the recovery room in stable condition. Job ID: [id number]
[2021-10-15] MEDS: cloNIDine HCL 0.1 MG TAB PO SCH ×2 (11:54→20:42)
[2021-10-15] MEDS: DOCUSATE SODIUM/SENNA 50/8.6MG TAB PO SCH ×2 (11:54→20:42)
[2021-10-15] MEDS: FENOFIBRATE NANOCRYSTALLIZED 145 MG TABLET PO SCH (11:55)
[2021-10-15] MEDS: amLODIPine BESYLATE 5 MG TAB PO SCH (11:55)
[2021-10-15] MEDS: SODIUM CHLORIDE 0.9% 1000ML 1,000 ML IV SCH (12:12)
[2021-10-15] MEDS: ASPIRIN 81 MG ECTAB PO SCH (12:13)
[2021-10-15] MEDS ORDERED: GLUCOSE 40% GEL 15 GM TUBE PO PRN (14:19)
[2021-10-15] MEDS ORDERED: DEXTROSE 50% 50 ML SYRINGE IV PRN (14:19)
[2021-10-15] MEDS ORDERED: CARBOHYDRATES FOR HYPOGLYCEMIA PO PRN (14:19)
[2021-10-15] MEDS ORDERED: GLUCAGON FOR INJ 1 MG VIAL SQ PRN (14:19)
[2021-10-15] MEDS ORDERED: GLUCOSE 10 TABS/TUBE PO PRN (14:19)
[2021-10-15] MEDS ORDERED: TRIAMCINOLONE ACET 0.1% CR 80 GM TUBE EXT PRN (15:29)
[2021-10-15] MEDS: INSULIN ASPART PER UNIT SC SCH ×2 (18:49→20:53)
[2021-10-15] MEDS ORDERED: ATORVASTATIN 40 MG TAB PO SCH (21:00)
[2021-10-16 06:08] LABS: Basophils # (auto) 0.02 K/uL (0-0.2); Basophils % (auto) 0.2 %; Hematocrit (blood only) 38.1 % (37-47); Hemoglobin 12.3 g/dL (12.0-16.0); Immature Granulocytes # (auto) 0.05 K/uL (0.00-0.02); Immature Granulocytes % (auto) 0.5 %; Lymphocytes # (auto) 1.43 K/uL (1.2-3.4); Lymphocytes % (auto) 14.1 %; Mean Corpuscular Hemoglobin 27.9 pg (25-34); Mean Corpuscular Hgb Conc 32.3 g/dL (32-36); Mean Corpuscular Volume 86.4 fL (80-100); Mean Platelet Volume 10.2 fL (7.4-10.4); Monocytes % (auto) 6.9 %; Neutrophils # (auto) 7.86 K/uL (1.4-6.5); Neutrophils % (auto) 77.3 %; Platelet Count 394 K/uL (130-400); RDW Coefficient of Variation 13.7 % (11.5-14.5); RDW Standard Deviation 42.9 fL (36.4-46.3); Red Blood Count 4.41 M/uL (4.2-5.4); White Blood Count 10.16 K/uL (4.8-10.8)
[2021-10-16 06:24] LABS: Albumin Globulin Ratio 1.1 (0.9-2); Albumin Level 3.8 gm/dl (3.4-5.0); BUN Creatinine Ratio 14.8 (10-20); Bilirubin,Total 0.6 mg/dl (0.2-1.0); Calcium 9.5 mg/dl (8.5-10.1); Creatinine Clr Calc Pharmacy 118.7 ml/min; Est GFR (African American) 109.5 ml/min; Est GFR (Non-African American) 94.5 ml/min; Globulin 3.5 gm/dl (2.5-4.0); Phosphorus 3.1 mg/dl (2.5-4.9); Potassium 4.3 mmol/L (3.5-5.1); Total Protein 7.3 gm/dl (6.0-8.3)
[2021-10-16] MEDS: SODIUM CHLORIDE 0.9% 1000ML 1,000 ML IV SCH (07:28)
--- NOTE | 2021-10-16 07:46 | Surgery Progress Note ---
Date of Service October 16, 2021 Assessment & Plan (1) S/P laparoscopic cholecystectomy: Plan: Patient with severe chronic cholecystitis and acute cholecystitis with adhesions Will discharge home today Maintain drain-remove in office next Tuesday or Tuesday Pain medication and antibiotic prescriptions sent Admission and Anticipated Discharge Date Admission Date: October 15, 2021 Results & Data ([facility]) Vital Signs (Past 12 Hours) Vital Signs Temp Pulse Resp BP Pulse Ox 10/16/21 05:43 36.7 C 65 18 120/70 96 10/16/21 04:16 36.7 C 65 18 126/73 96 10/16/21 00:05 36.6 C 60 18 125/70 96 10/15/21 21:20 36.8 C 54 L 18 128/75 95 10/15/21 20:46 36.9 C 56 L 16 132/76 94 PG Care Time/CCT Total # of Minutes Spent Total Time Spent with Patient: Total time spent is greater than 50% in coordination of care (as documented) at patient's floor/unit and/or counseling patient: Coding Level of Care Code None Diagnoses S/P laparoscopic cholecystectomy Z90.49
[2021-10-16] MEDS: cloNIDine HCL 0.1 MG TAB PO SCH (08:20)
[2021-10-16] MEDS: amLODIPine BESYLATE 5 MG TAB PO SCH (08:20)
[2021-10-16] MEDS: FENOFIBRATE NANOCRYSTALLIZED 145 MG TABLET PO SCH (08:23)
[2021-10-16] MEDS: DOCUSATE SODIUM/SENNA 50/8.6MG TAB PO SCH (08:23)
[2021-10-16] MEDS ORDERED: POTASSIUM CHLORIDE 10 MEQ TABCR PO SCH (09:00)
[2021-10-16] MEDS ORDERED: TOLTERODINE TARTRATE LA 4 MG CAPCR PO SCH (09:00)
[2021-10-16] MEDS ORDERED: PANTOprazole 40 MG TAB PO SCH (09:00)
[2021-10-16] MEDS ORDERED: FUROSEMIDE 20 MG TAB PO SCH (09:00)
[2021-10-16] MEDS ORDERED: VALSARTAN 80 MG TAB PO SCH (09:00)
[2021-10-16] MEDS: INSULIN ASPART PER UNIT SC SCH (09:02)
[2021-10-16] MEDS: ASPIRIN 81 MG ECTAB PO SCH (09:31)
--- NOTE | 2021-10-16 11:22 | Hospitalist Progress Note ---
Date of Service October 16, 2021 Assessment & Plan (1) S/P laparoscopic cholecystectomy: Plan: - POD #0, doing well without complaints. EBL 10 cc. NADEGE drain in place. - Defer ABX, IVF, pain management, DVT PPx, transition requirement to primary team. - CBC and BMP in AM. (2) Irritant dermatitis: Plan: - triamcinolone cream ordered prn, apply under breasts. (3) Hypertension: Plan: - Can restart amlodipine, clonidine, valsartan on POD#1 10/16. (4) Diabetes: Plan: - On metformin at home, will hold this. - Accu-Cheks ACHS with sliding scale insulin for now. - A1c 8.3%. May need increase in metformin or second agent for better control, will defer to PCP. - Diabetic/heart healthy diet. (5) Hypercholesterolemia: Plan: - Continue statin, Tricor. (6) Gastroesophageal reflux disease: Plan: - Continue PPI. (7) CAD (coronary artery disease): Plan: - Continue statin, Tricor, BP meds, ASA. Past history: - Cardiac cath 02/07/15: 30% early mid and 10-20% mid and distal LAD. 50-60% ostial diagonal. 10-20% ostial and 30% mid LCx. 30% ostial and prox OM. 20% ostial and prox and 10-20% mid and distal RCA. 0-10% PDA. - Echo 12/2019: normal biventricular systolic function, mild LVH, grade 1 LV diastolic dysfunction, LV ejection fraction 65-70%, mild left atrial dilatation, no significant valvular abnormalities. - Follows with Dr. Gandara - [facility]. (8) Chronic edema: Plan: - May continue Lasix tomorrow 10/16 on POD #1. - Continue potassium supplementation when resuming Lasix. (9) Overactive bladder: Plan: - Continue Detrol. Plan: - Obs status on med/surg with d/c plans for tomorrow pending no acute events overnight. - VTE ppx per primary team. - Full Code. Admission and Anticipated Discharge Date Admission Date: October 15, 2021 Results & Data Results & Data ([facility]) Vital Signs (Past 12 Hours) Vital Signs Temp Pulse Resp BP Pulse Ox 10/16/21 08:27 63 10/16/21 08:19 58 L 130/83 10/16/21 05:43 36.7 C 65 18 120/70 96 10/16/21 04:16 36.7 C 65 18 126/73 96 10/16/21 00:05 36.6 C 60 18 125/70 96 Laboratory Results Laboratory Results - last 24 hr 10/15/21 10/15/21 10/16/21 17:21 20:41 05:18 WBC 10.16 RBC 4.41 Hgb 12.3 Hct 38.1 MCV 86.4 MCH 27.9 MCHC 32.3 RDW Std Deviation 42.9 RDW Coeff of Jonas 13.7 Plt Count 394 MPV 10.2 Immature Gran % (Auto) 0.5 Neut % (Auto) 77.3 Lymph % (Auto) 14.1 Foster % (Auto) 6.9 Eos % (Auto) 1.0 Baso % (Auto) 0.2 Neut # (Auto) 7.86 H Lymph # (Auto) 1.43 Foster # (Auto) 0.70 H Eos # (Auto) 0.10 Baso # (Auto) 0.02 Immature Gran # (Auto) 0.05 H Sodium Potassium Chloride Carbon Dioxide Anion Gap BUN Creatinine Est Cr Clr Drug Dosing Est GFR ( Amer) Est GFR (Non-Af Amer) BUN/Creatinine Ratio Glucose POC Glucose 157 H 160 H Calcium Phosphorus Total Bilirubin Direct Bilirubin AST ALT Alkaline Phosphatase Total Protein Albumin Globulin Albumin/Globulin Ratio 10/16/21 10/16/21 05:18 08:14 WBC RBC Hgb Hct MCV MCH MCHC RDW Std Deviation RDW Coeff of Jonas Plt Count MPV Immature Gran % (Auto) Neut % (Auto) Lymph % (Auto) Foster % (Auto) Eos % (Auto) Baso % (Auto) Neut # (Auto) Lymph # (Auto) Foster # (Auto) Eos # (Auto) Baso # (Auto) Immature Gran # (Auto) Sodium 135 L Potassium 4.3 Chloride 102 Carbon Dioxide 24 Anion Gap 9 BUN 9 Creatinine 0.61 Est Cr Clr Drug Dosing 118.7 Est GFR ( Amer) 109.5 Est GFR (Non-Af Amer) 94.5 BUN/Creatinine Ratio 14.8 Glucose 168 H POC Glucose 171 H Calcium 9.5 Phosphorus 3.1 Total Bilirubin 0.6 Direct Bilirubin 0.0 AST 34 ALT 26 Alkaline Phosphatase 43 Total Protein 7.3 Albumin 3.8 Globulin 3.5 Albumin/Globulin Ratio 1.1 PG Care Time/CCT Total # of Minutes Spent Total Time Spent with Patient: Total time spent is greater than 50% in coordination of care (as documented) at patient's floor/unit and/or counseling patient: Coding Diagnoses S/P laparoscopic cholecystectomy Z90.49 Irritant dermatitis L24.9 Hypertension I10 Diabetes E11.9 Hypercholesterolemia E78.00 Gastroesophageal reflux disease K21.9 CAD (coronary artery disease) I25.10 Chronic edema R60.9 Overactive bladder N32.81
--- NOTE | 2021-10-16 22:29 | Discharge Summary (DS) ---
DATE OF DISCHARGE: 10/16/2021. DATE OF ADMISSION: 10/15/2021. PRINCIPAL DIAGNOSIS: Acute on chronic cholecystitis. PROCEDURE: The patient underwent laparoscopic cholecystectomy with drainage. HISTORY OF PRESENT ILLNESS: The patient is a 66-year-old female who was admitted to the hospital rec ently with abdominal pain and with known gallstones and pancreatitis, which could have been from a re cent COVID diagnosis or medication she was being treated with for COVID. She actually was sent home for a short recovery and then brought back into the hospital on 10/15/2021, where she underwent a lap aroscopic cholecystectomy, which showed severe chronic inflammation with adhesions and also acute inf lammation. She did require a drain. She was kept overnight, has done well, and is felt stable for d ischarge home, to be followed in the surgical clinic early next week for drain removal. Job ID: [id number]
== END 2021-10-16 12:09 | disposition home or self-care (01) ==
LOC: PACUINP 05:39 → ASU 05:39 → 3N 14:10